=== PATIENT | male | born 1960 | race Caucasian/White ===

== ENCOUNTER 2022-08-17 11:49 | Emergency (ER) | payer OTHER, SELFPAY ==
[2022-08-17] VITALS (9 sets, daily range): BP systolic 114–148; BP diastolic 64–80; PULSE 70–86; RESP 12–20; TEMP 36.9; O2SAT 95–100; BMI 26.2
--- NOTE | 2022-08-17 12:32 | ED.GENADULT ---
HPI - General Adult General Chief complaint: Syncope/Fainted Stated complaint: snycope Time Seen by Provider: 08/17/22 11:53 Source: patient and family Mode of arrival: ambulatory Limitations: no limitations History of Present Illness HPI narrative: Patient is a 62-year-old male coming in today concerned about a syncopal episode that occurred just prior to presenting to the ER. Patient states that he was at home sitting on a stool, getting his hair cut by his when all of a sudden he felt very hot and sweaty. His then tells me that he slumped forward and she was able to hold onto him and wrap her arms around him so he would fall off the stool. He became very stiff for about 1 minute, lost control of his bladder and then came to. He felt slightly confused, did not know what had just happened. Per his his color was very off and she laid him on the couch. He laid on the couch for approximately 10 minutes while he was lying on the couch, he was acting normally. Right now he says that he feels fatigued. He denies headache or blurry vision. He does state that this last week he has had flu-like symptoms with fatigue, weakness, achiness. He also endorses pressure across his face, significant congestion, feeling that he is ?under water? and feeling like his ears are plugged. He had a fever Thursday and Thursday of this week which was 4-5 days ago. He was seen in the clinic 2 days ago on Thursday where he was diagnosed with a viral illness. He states that he has not been eating very much at all this week secondary to poor appetite, but has tried to drink plenty of fluids. Patient does have a past medical history significant for a mL for which he is status post a stem cell transplant done in 2019. He denies any new medications. He has been off of immunosuppressants for a while now. Related Data Home Medications Medication Instructions Recorded Confirmed ursodiol 500 mg tablet 500 mg PO BID 08/17/22 08/17/22 valacyclovir 1 gram tablet 2,000 mg PO BID 08/17/22 08/17/22 Previous Rx's Medication Instructions Recorded amoxicillin 875 mg-potassium 1 tab PO BID #10 tabs 08/17/22 clavulanate 125 mg tablet Allergies Allergy/AdvReac Type Severity Reaction Status Date / Time No Known Drug Allergies Allergy Verified 08/17/22 12:04 Review of Systems Status of ROS: Reports: 10 or more systems reviewed and unremarkable except as noted in History and below [facility] Social History Smoking Status: Never smoker Do you use any of these nicotine containing products: None Second hand tobacco smoke exposure: No How often do you have a drink containing alcohol: 2-4 times a month How many standard drinks containing alcohol do you have on a typical day: 1 or 2 How often do you have six or more drinks on one occasion: Never AUDIT-C Alcohol total score: 2 Non-prescribed substance use: denies use Exam Narrative: Exam Narrative: Well-nourished well-developed patient in no acute distress. Alert and oriented. Answers questions appropriately. Mood and affect are appropriate. Thoughts are goal oriented and rational. No tangential or magical thinking noted. Patient speaks in full sentences without needing to catch their breath. Speech is not slurred or pressured. HEENT: Normocephalic atraumatic. Pupils are equally round reactive to light. Extraocular muscles are intact. Conjunctivae are moist without any icterus noted. Moist mucous membranes. Posterior pharynx is normal. Patient does have small ulcerations on the hard palate. Neck is soft without any lymphadenopathy or thyromegaly. No masses are appreciated. TMs are dull bilaterally. Cardiovascular: Heart is regular rate and rhythm S1 and S2 are present without any murmurs. Lungs: Clear to auscultation bilaterally no wheezes rhonchi or rales are appreciated. Patient takes deep breaths without any discomfort. Abdomen: Soft and nontender nondistended with normal bowel sounds. No guarding or rebound. No masses or organomegaly appreciated. Extremities: Bilateral lower extremities are without edema. Skin: Well perfused without any obvious rashes. Strength is 5/5 of the upper and lower extremities. Cranial nerves 3-12 are normal. There is no nystagmus either horizontally or vertically. Gait is normal. Const: Vital Signs, click to edit/add: Vital Signs - 24 hr 08/17/22 11:59 08/17/22 12:23 08/17/22 13:23 Temperature 98.5 F Pulse Rate [Pulse Oximeter] 70 Pulse Rate [orthos tatic lying] 75 Pulse Rate [orthos tatic sitting] 84 Pulse Rate [orthos tatic standing] 82 Respiratory Rate 20 Blood Pressure [Ri ght Upper Arm] 120/80 Blood Pressure [or thostatic lying] 123/64 Blood Pressure [or thostatic sitting] 135/76 Blood Pressure [or thostatic standing ] 127/75 Pulse Oximetry 98 100 Oxygen Delivery Me thod Room Air 08/17/22 12:30 08/17/22 13:00 08/17/22 13:30 Temperature Pulse Rate [Pulse Oximeter] 73 73 86 Pulse Rate [orthos tatic lying] Pulse Rate [orthos tatic sitting] Pulse Rate [orthos tatic standing] Respiratory Rate 20 20 12 Blood Pressure [Ri ght Upper Arm] 116/64 123/64 123/68 Blood Pressure [or thostatic lying] Blood Pressure [or thostatic sitting] Blood Pressure [or thostatic standing ] Pulse Oximetry 99 97 95 Oxygen Delivery Me thod 08/17/22 14:00 08/17/22 14:30 08/17/22 15:00 Temperature Pulse Rate [Pulse Oximeter] 80 76 71 Pulse Rate [orthos tatic lying] Pulse Rate [orthos tatic sitting] Pulse Rate [orthos tatic standing] Respiratory Rate 14 15 15 Blood Pressure [Ri ght Upper Arm] 114/69 148/77 H 138/79 Blood Pressure [or thostatic lying] Blood Pressure [or thostatic sitting] Blood Pressure [or thostatic standing ] Pulse Oximetry 99 97 99 Oxygen Delivery Me thod Course Course Hospital Course: IV established and labs drawn. EKG was done, read by me, shows normal sinus rhythm with a pulse of 75. Patient received a L of normal saline. Labs showed elevated white count and elevated CRP. Mildly elevated direct bilirubin. I did consult with Dr. Joyce, bone marrow transplant specialist at [facility] who has access to the patient's chart. Per Dr. Joyce patient's white blood cell count is generally in the normal range. He recommended checking for myeloid cells unfortunately this is not something that we can do here. Of note, he does have another appointment with the bone marrow team already scheduled for tomorrow. I also consulted with Dr. Dwyer, neurologist at [facility], who felt that the patient's symptoms were consistent with a syncopal episode, although a seizure episode could not be 100% ruled out. Given his symptoms we also did do a head CT which did although did not show any intracranial abnormalities did show pansinusitis. This is consistent with the patient's symptoms of congestion, feeling his ears are plugged, and facial discomfort. Given the patient's elevated white cell count and significantly elevated CRP, recent fever and symptoms of sinusitis, I do think that treating him with an antibiotic will be important at this time. We did do a chest x-ray, read by me, which did not show any evidence of infection. Patient is instructed to keep his appointment tomorrow for a repeat CBC. We also discussed following up with primary care provider mid next week for repeat examination. Patient and were agreeable with everything we discussed had no other questions. Vital Signs Vital signs: Initial Vital Signs Temperature 98.5 F 08/17/22 11:59 Temperature Source Temporal Artery Scan 08/17/22 11:59 Pulse Rate 70 08/17/22 11:59 Pulse Rhythm 08/17/22 11:59 Respiratory Rate 20 08/17/22 11:59 Blood Pressure 120/80 08/17/22 11:59 Blood Pressure Mean 93 08/17/22 11:59 Blood Pressure Position Semi-Fowlers 08/17/22 11:59 Pulse Oximetry 98 08/17/22 11:59 Oxygen Delivery Method 08/17/22 11:59 Vital Signs Temperature 98.5 F 08/17/22 11:59 Pulse Rate 70 08/17/22 11:59 Respiratory Rate 20 08/17/22 11:59 Blood Pressure 120/80 08/17/22 11:59 Pulse Oximetry 98 08/17/22 11:59 Oxygen Delivery Method 08/17/22 11:59 Temperature 98.5 F 08/17/22 11:59 Pulse Rate 71 08/17/22 15:00 Respiratory Rate 15 08/17/22 15:00 Blood Pressure 138/79 08/17/22 15:00 Pulse Oximetry 99 08/17/22 15:00 Oxygen Delivery Method 08/17/22 11:59 Medical Decision Making MDM Narrative Medical decision making narrative: Syncopal episode. Evidence of sinusitis. Plan per above. Medical Records Medical records reviewed: Yes I reviewed the patient's medical records Lab Data Lab results reviewed: Yes I reviewed the patient's lab results Labs: Lab Results 08/17/22 08/17/22 08/17/22 Range/Units 12:24 12:45 12:45 WBC 22.46 H (4.50-11.00) K/uL RBC 4.84 (4.30-5.90) m/uL Hgb 15.1 (13.5-17.5) gm/dL Hct 44.6 (37.0-53.0) % MCV 92 (80-100) fL MCH 31 (26-34) pg MCHC 34 (32-36) gm/dL RDW Coeff of Nigel 14.3 (11.5-15.5) % Plt Count 223 (140-440) K/uL Neut % (Auto) 71.9 (42.0-72.0) % Lymph % (Auto) 14.4 L (20-44) % Stearns % (Auto) 11.0 (0.0-11.0) % Eos % (Auto) 0.3 (0.0-7.0) % Baso % (Auto) 0.2 (0.0-3.0) % Neut # (Auto) 16.10 H (1.7-7.0) K/uL Lymph # (Auto) 3.20 H (0.90-2.90) K/uL Stearns # (Auto) 2.50 H (0.00-0.90) K/UL Eos # (Auto) 0.10 (0.00-0.50) K/uL Baso # (Auto) 0.00 (0.00-0.30) K/uL ESR (2-15) mm/hr Sodium 133 L (135-149) mmol/L Potassium 4.0 (3.6-5.1) mmol/L Chloride 100 (96-114) mmol/L Carbon Dioxide 26 (20-32) mmol/L BUN 15 (7-30) mg/dL Creatinine 0.9 (0.5-1.5) mg/dL Estimated Creat Clear 82.62 Estimated GFR 97 ml/min Glucose 106 (60-115) mg/dL Lactate (0.5-1.9) mmol/L Calcium 8.3 L (8.4-10.6) mg/dL Total Bilirubin 1.9 H (0.1-1.5) mg/dL Direct Bilirubin 0.7 H (0.0-0.5) mg/dL AST 23 (12-35) U/L ALT 29 (4-50) U/L Alkaline Phosphatase 124 (40-150) U/L Troponin I (0.01-0.04) ng/mL C-Reactive Protein (0.5-1.0) mg/dL Total Protein 7.2 (6.0-8.3) g/dL Albumin 3.3 (3.3-5.0) g/dL SARS-CoV-2 (PCR) Negative SARS-CoV-2 (Negative) Influenza Type A (PCR) Negative PCR FLU A (Negative) Influenza Type B (PCR) Negative PCR FLU B (Negative) 08/17/22 08/17/22 08/17/22 Range/Units 12:45 12:45 12:45 WBC (4.50-11.00) K/uL RBC (4.30-5.90) m/uL Hgb (13.5-17.5) gm/dL Hct (37.0-53.0) % MCV (80-100) fL MCH (26-34) pg MCHC (32-36) gm/dL RDW Coeff of Nigel (11.5-15.5) % Plt Count (140-440) K/uL Neut % (Auto) (42.0-72.0) % Lymph % (Auto) (20-44) % Stearns % (Auto) (0.0-11.0) % Eos % (Auto) (0.0-7.0) % Baso % (Auto) (0.0-3.0) % Neut # (Auto) (1.7-7.0) K/uL Lymph # (Auto) (0.90-2.90) K/uL Stearns # (Auto) (0.00-0.90) K/UL Eos # (Auto) (0.00-0.50) K/uL Baso # (Auto) (0.00-0.30) K/uL ESR 29 H (2-15) mm/hr Sodium (135-149) mmol/L Potassium (3.6-5.1) mmol/L Chloride (96-114) mmol/L Carbon Dioxide (20-32) mmol/L BUN (7-30) mg/dL Creatinine (0.5-1.5) mg/dL Estimated Creat Clear Estimated GFR ml/min Glucose (60-115) mg/dL Lactate 1.1 (0.5-1.9) mmol/L Calcium (8.4-10.6) mg/dL Total Bilirubin (0.1-1.5) mg/dL Direct Bilirubin (0.0-0.5) mg/dL AST (12-35) U/L ALT (4-50) U/L Alkaline Phosphatase (40-150) U/L Troponin I < 0.01 L (0.01-0.04) ng/mL C-Reactive Protein 18.8 H (0.5-1.0) mg/dL Total Protein (6.0-8.3) g/dL Albumin (3.3-5.0) g/dL SARS-CoV-2 (PCR) (Negative) Influenza Type A (PCR) (Negative) Influenza Type B (PCR) (Negative) Imaging Data CT scan - head: Attestation: I have reviewed the pertinent imaging results. Radiologist's impression: TECHNIQUE: CT Head without i.v. contrast. Coronal and sagittal reformats were obtained. COMPARISON: None FINDINGS: CSF space: The ventricles are normal for age. Brain: No evidence of mass, acute infarction or hemorrhage is seen. No mass-effect or midline shift is seen. The brain parenchyma is otherwise normal in appearance with preservation of the bro-white matter junction. Calvarium: Opacification of the ethmoid air cells and maxillary sinuses are present. Mild mucosal thickening seen in the sphenoid sinuses with small air-fluid level in the left sphenoid sinus. There is a moderate right and large left mastoid effusion present with bilateral middle ear effusions seen. The visualized orbits are grossly unremarkable. The calvarium is unremarkable in appearance with no fractures identified. IMPRESSIONS: 1. No evidence of acute infarction, intracranial hemorrhage, or mass-effect seen. 2. Opacification of the ethmoid air cells and maxillary sinuses are present. Mild mucosal thickening seen in the sphenoid sinuses with small air-fluid level in the left sphenoid sinus. Findings are consistent with pansinusitis. 3. There is a moderate right and large left mastoid effusion present with bilateral middle ear effusion seen. Chest x-ray: Attestation: I have reviewed the pertinent imaging results. Radiologist's impression: TECHNIQUE: Two view chest. FINDINGS: The lungs are clear. The heart, mediastinum and pulmonary vessels are of normal size. There is no evidence of pleural disease. IMPRESSION: Negative chest. ECG Data Attestation: I personally reviewed and interpreted this ECG as follows: Discharge Plan Discharge Clinical Impression: Pansinusitis, Syncope Patient Disposition: Home, Self-Care Condition: Stable Additional Instructions: Take all antibiotics as prescribed. Okay to use a Neti pot to help with congestion-as per want the pharmacy and ask pharmacist to show you how to use 1. Recommend you keep your appointment tomorrow for repeat blood work. Also recommend you follow-up with your primary care provider mid next week for repeat examination and repeat blood work to make sure things are improving. Prescriptions: New amoxicillin-pot clavulanate 875-125 mg tablet 1 tab PO BID Qty: 10 0RF No Action valacyclovir 1 gram tablet 2,000 mg PO BID ursodiol 500 mg tablet 500 mg PO BID Follow Up/Referrals: Antonio Bueno MD [Primary Care Provider] - Stand Alone Forms: [facility] Info Instructions
--- NOTE | 2022-08-17 12:37 | CRLHL7_ITS ---
For Patients: As a result of the Century Cures Act, medical imaging exams and procedure reports are released immediately into your electronic medical record. You may view this report before your referring provider. If you have questions, please contact your health care provider. INDICATION: Seizure like symptoms TECHNIQUE: CT Head without i.v. contrast. Coronal and sagittal reformats were obtained. COMPARISON: None FINDINGS: CSF space: The ventricles are normal for age. Brain: No evidence of mass, acute infarction or hemorrhage is seen. No mass-effect or midline shift is seen. The brain parenchyma is otherwise normal in appearance with preservation of the bro-white matter junction. Calvarium: Opacification of the ethmoid air cells and maxillary sinuses are present. Mild mucosal thickening seen in the sphenoid sinuses with small air-fluid level in the left sphenoid sinus. There is a moderate right and large left mastoid effusion present with bilateral middle ear effusions seen. The visualized orbits are grossly unremarkable. The calvarium is unremarkable in appearance with no fractures identified. IMPRESSIONS: 1. No evidence of acute infarction, intracranial hemorrhage, or mass-effect seen. 2. Opacification of the ethmoid air cells and maxillary sinuses are present. Mild mucosal thickening seen in the sphenoid sinuses with small air-fluid level in the left sphenoid sinus. Findings are consistent with pansinusitis. 3. There is a moderate right and large left mastoid effusion present with bilateral middle ear effusion seen. Dictated by Tino Garcia MD @ 08/17/2022 1:39:17 PM Please note that all CT scans at this facility use dose modulation, iterative reconstruction, and/or weight-based dosing when appropriate to reduce radiation dose to as low as reasonably achievable. Dictated by: Tino Garcia MD @ 08/17/2022 13:39:52 (Electronically Signed)
[2022-08-17] MEDS: 0.9 % SODIUM CHLORIDE 1000 ml 1,000 ML IV (12:54)
[2022-08-17 12:56] LABS: Lactate* 1.1 mmol/L (0.5-1.9)
[2022-08-17 13:05] LABS: Basophils Percent Auto 0.2 % (0.0-3.0); Eosinophils Percent Auto 0.3 % (0.0-7.0); Hematocrit 44.6 % (37.0-53.0); Hemoglobin* 15.1 gm/dL (13.5-17.5); Immature Granulocytes Pct Auto 2.2 %; Lymphocytes Percent Auto 14.4 % (20-44); Mean Corpuscular HGB Conc 34 gm/dL (32-36); Mean Corpuscular Hemoglobin 31 pg (26-34); Mean Corpuscular Volume 92 fL (80-100); Neutrophils Percent Auto 71.9 % (42.0-72.0); Platelet Count* 223 K/uL (140-440); RDW Coefficient of Variation % 14.3 % (11.5-15.5); Red Blood Count 4.84 m/uL (4.30-5.90); Slide Review Reflex No; White Blood Count* 22.46 K/uL (4.50-11.00)
[2022-08-17 13:11] LABS: Albumin* 3.3 g/dL (3.3-5.0); Chloride* 100 mmol/L (96-114); Sodium* 133 mmol/L (135-149)
[2022-08-17 13:14] LABS: Alanine Aminotransferase* 29 U/L (4-50); Alkaline Phosphatase* 124 U/L (40-150); Aspartate Amino Transferase* 23 U/L (12-35); Bilirubin Direct* 0.7 mg/dL (0.0-0.5); Bilirubin Total* 1.9 mg/dL (0.1-1.5); Blood Urea Nitrogen* 15 mg/dL (7-30); Carbon Dioxide* 26 mmol/L (20-32); Creatinine* 0.9 mg/dL (0.5-1.5); Est. Creatinine Clearance* 82.62; Estimated Glomerular Filt Rate 97 ml/min; Glucose* 106 mg/dL (60-115); Total Protein* 7.2 g/dL (6.0-8.3)
[2022-08-17 13:15] LABS: Calcium* 8.3 mg/dL (8.4-10.6)
[2022-08-17 13:29] LABS: Troponin I* < 0.01 ng/mL (0.01-0.04)
[2022-08-17 13:36] LABS: C Reactive Protein* 18.8 mg/dL (0.5-1.0)
[2022-08-17 13:47] LABS: Erythrocyte SedimentationRate* 29 mm/hr (2-15)
[2022-08-17 13:52] LABS: PCR FLU A Negative PCR FLU A (Negative); PCR FLU B Negative PCR FLU B (Negative)
[2022-08-17 14:11] LABS: SARS PCR* Negative SARS-CoV-2 (Negative)
--- NOTE | 2022-08-17 14:13 | CRLHL7_ITS ---
For Patients: As a result of the Century Cures Act, medical imaging exams and procedure reports are released immediately into your electronic medical record. You may view this report before your referring provider. If you have questions, please contact your health care provider. INDICATION: Short of breath TECHNIQUE: Two view chest. FINDINGS: The lungs are clear. The heart, mediastinum and pulmonary vessels are of normal size. There is no evidence of pleural disease. IMPRESSION: Negative chest. Dictated by Scott Ching MD @ 08/17/2022 3:07:31 PM (Electronically Signed)
--- NOTE | 2022-08-17 14:18 | ED.NURSE ---
Pt to imaging
== END 2022-08-17 15:12 | disposition home or self-care (01) ==
PROVIDERS: Emergency Provider Family Medicine; PCP Family Medicine
DX: R55 Syncope and collapse (principal); J32.4 Chronic pansinusitis
CPT/HCPCS: 36415; 70450; 71046; 80048; 80076; 83605; 84484; 85025; 85651; 86140; 87631; 93005; 94761; 99285; J7030

== ENCOUNTER 2023-04-24 03:37 | Emergency (ER) | payer OTHER, SELFPAY ==
[2023-04-24] VITALS (42 sets, daily range): BP systolic 86–114; BP diastolic 43–71; PULSE 93–105; RESP 20; TEMP 38.2; O2SAT 91–97; BMI 26.5
--- NOTE | 2023-04-24 03:46 | CRLHL7_ITS ---
For Patients: As a result of the Century Cures Act, medical imaging exams and procedure reports are released immediately into your electronic medical record. You may view this report before your referring provider. If you have questions, please contact your health care provider. Indication: Fever and cough Comparison: Two-view chest August 17, 2022 Technique: Single AP view chest Findings: There is hyperinflation and chronic interstitial change. There is minimal basilar airspace opacity within the right lung base which may represent developing infiltrate. There is no pneumothorax or pleural effusion. The cardiomediastinal silhouette is within normal limits. The bony thorax is grossly intact. Impression: Minimal basilar airspace opacity in the right lung base which may represent developing infiltrate. Dictated by Deonte Em MD @ 04/24/2023 5:05:45 AM (Electronically Signed)
--- NOTE | 2023-04-24 04:03 | ED.GENADULT ---
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 He has been feeling poorly for the past couple of days, apparently was at [facility] for routine blood draw on Thursday [place] [id number] at that time. He says he normally runs 8 or 9000. He says he was told to make an appointment with his primary doctor to get COVID and RSV be ruled out. He has had a cough, congestion, headache, nausea. He vomited once. He has not had diarrhea. This morning he got up and had a syncopal episode, landed on his butt and has some soreness there but no significant pain, denies significant injury. No head or neck injury. Related Data Home Medications Medication Instructions Recorded Confirmed ursodiol 500 mg tablet 500 mg PO BID 08/17/22 04/24/23 valacyclovir 1 gram tablet 2,000 mg PO BID 08/17/22 04/24/23 Allergies Allergy/AdvReac Type Severity Reaction Status Date / Time No Known Drug Allergies Allergy Verified 04/24/23 05:44 Review of Systems Status of ROS: Reports: 10 or more systems reviewed and unremarkable except as noted in History and below PFSH PFS Social History Smoking Status: Never smoker Do you use any of these nicotine containing products: None Second hand tobacco smoke exposure: No How often do you have a drink containing alcohol: 2-4 times a month How many standard drinks containing alcohol do you have on a typical day: 1 or 2 How often do you have six or more drinks on one occasion: Never AUDIT-C Alcohol total score: 2 Non-prescribed substance use: denies use Exam Narrative: Exam Narrative: Vital signs as noted above. In general, an alert, nontoxic male, looks fatigued. Head: Normocephalic, atraumatic. Eyes: Pupils are equal reactive. Extraocular movements are full. Conjunctivae are normal. ENT: Mucous membranes are moist. Neck: Supple without lymphadenopathy. Heart: Mildly tachycardic, no murmur. Lungs: Some rhonchi bilaterally, no wheezes no increased work of breathing. Abdomen: Soft and nontender. No organomegaly. Extremities: Well perfused. No edema. No calf tenderness. Pulses intact. Neurologic: Patient is alert and oriented to person and place. Speech is fluent. Face is symmetric. Moves all extremities equally. Affect: Normal. Skin: Warm and dry. Well perfused. Const: Vital Signs, click to edit/add: Vital Signs - 24 hr 04/24/23 03:42 04/24/23 03:58 04/24/23 04:00 Temperature 100.8 F H 100.8 F H Pulse Rate Pulse Rate [Pulse Oximeter] 103 H Pulse Rate [Right Pulse Oximeter] 105 H Respiratory Rate 20 20 Blood Pressure Blood Pressure [Le ft Upper Arm] 94/55 L Blood Pressure [Ri ght Arm] 95/60 Pulse Oximetry 96 97 95 Oxygen Delivery Me thod Room Air Room Air 04/24/23 04:11 04/24/23 04:26 04/24/23 04:31 Temperature Pulse Rate 100 102 H 101 H Pulse Rate [Pulse Oximeter] Pulse Rate [Right Pulse Oximeter] Respiratory Rate 20 Blood Pressure 91/55 L 87/51 L 87/51 L Blood Pressure [Le ft Upper Arm] Blood Pressure [Ri ght Arm] Pulse Oximetry 92 95 93 Oxygen Delivery Me thod 04/24/23 04:41 04/24/23 04:51 04/24/23 05:10 Temperature Pulse Rate 101 H 101 H 99 Pulse Rate [Pulse Oximeter] Pulse Rate [Right Pulse Oximeter] Respiratory Rate 20 20 20 Blood Pressure 88/51 L 90/51 L 98/53 L Blood Pressure [Le ft Upper Arm] Blood Pressure [Ri ght Arm] Pulse Oximetry 93 91 96 Oxygen Delivery Me thod 04/24/23 05:15 04/24/23 05:21 04/24/23 05:41 Temperature Pulse Rate 99 101 H 104 H Pulse Rate [Pulse Oximeter] Pulse Rate [Right Pulse Oximeter] Respiratory Rate 20 20 20 Blood Pressure 87/48 L 91/47 L 90/52 L Blood Pressure [Le ft Upper Arm] Blood Pressure [Ri ght Arm] Pulse Oximetry 96 95 93 Oxygen Delivery Me thod 04/24/23 05:51 04/24/23 06:01 04/24/23 06:11 Temperature Pulse Rate 101 H 100 104 H Pulse Rate [Pulse Oximeter] Pulse Rate [Right Pulse Oximeter] Respiratory Rate 20 20 20 Blood Pressure 94/48 L 88/49 L 91/43 L Blood Pressure [Le ft Upper Arm] Blood Pressure [Ri ght Arm] Pulse Oximetry 94 93 95 Oxygen Delivery Me thod 04/24/23 06:23 04/24/23 06:31 04/24/23 06:41 Temperature Pulse Rate 102 H 104 H 98 Pulse Rate [Pulse Oximeter] Pulse Rate [Right Pulse Oximeter] Respiratory Rate 20 20 20 Blood Pressure 86/44 L 99/46 L 87/45 L Blood Pressure [Le ft Upper Arm] Blood Pressure [Ri ght Arm] Pulse Oximetry 94 94 92 Oxygen Delivery Me thod 04/24/23 06:51 Temperature Pulse Rate 98 Pulse Rate [Pulse Oximeter] Pulse Rate [Right Pulse Oximeter] Respiratory Rate 20 Blood Pressure 90/46 L Blood Pressure [Le ft Upper Arm] Blood Pressure [Ri ght Arm] Pulse Oximetry 92 Oxygen Delivery Me thod Documenting provider has reviewed patient's vital signs: yes Course Course ED Course: Following initial evaluation, I ordered labs including blood cultures, lactate, COVID influenza lung others. I ordered a chest x-ray as well. He was getting up to provide a urine sample and had another brief syncopal episode. Does not seem to have significantly low blood pressures, repeat pressure was 113 systolic, and then after that was back down to 94/55. Map of 61. Will give normal saline, low threshold for starting broad-spectrum antibiotics Patient continued to have borderline blood pressures, white blood cell count today was 27,000, lactate was 3.6. I did order Zosyn and vancomycin as well as a total of 3 L of normal saline. Thirty per kilo for him would be about 2600 mL. Blood cultures and urine culture were obtained prior to antibiotics. Other labs showed a normal hemoglobin of 14.9, left shift with 79% neutrophils. Metabolic panel notable for a sodium of 131, otherwise unremarkable. LFTs notable for a total bilirubin of 4.6, direct of 1.8. AST normal, ALT 55, alk-phos 113. CRP was elevated at 8. Procalcitonin was 8.5. Urinalysis was negative in terms of signs of infection. COVID, influenza and RSV were also negative. Chest x-ray by my review did show a hint of an infiltrate on the right, radiology read this as follows:Findings: There is hyperinflation and chronic interstitial change. There is minimal basilar airspace opacity within the right lung base which may represent developing infiltrate. There is no pneumothorax or pleural effusion. The cardiomediastinal silhouette is within normal limits. The bony thorax is grossly intact. Impression: Minimal basilar airspace opacity in the right lung base which may represent developing infiltrate. In an effort to definitively identify a source for sepsis and given abnormal LFTs I elected to do CT scans of the chest abdomen and pelvis. By my review this showed a right-sided infiltrate. Gallbladder looks somewhat distended but I do not see any stones, wall thickening or pericholecystic fluid on CT. He does not have any abdominal tenderness, and I think pneumonia is an adequate explanation for his sepsis. I put a call in to the transplant team at [place], I spoke with the nurse practitioner, Moriah, there. She felt transfer would be appropriate and that he would likely require ICU care. His blood pressures stayed right around the upper 80s to low 90s even after 3 L of fluid, pulse remains just above 100. Map has stayed around 60. Will go ahead and start some Levophed for further blood pressure support given lack of response to fluids. He is feeling somewhat better after fluid resuscitation. Continues to deny shortness of breath. O2 sats when he is resting are about 91-92%, 94-95% when he is awake and talking. Plan will be for transfer to [place] by helicopter. Critical care time 60 minutes Vital Signs Vital signs: Initial Vital Signs Temperature 100.8 F H 04/24/23 03:42 Temperature Source Temporal Artery Scan 04/24/23 03:42 Pulse Rate 103 H 04/24/23 03:42 Respiratory Rate 20 04/24/23 03:42 Blood Pressure 94/55 L 04/24/23 03:42 Blood Pressure Mean 68 L 04/24/23 03:42 Blood Pressure Position Sitting 04/24/23 03:42 Pulse Oximetry 96 04/24/23 03:42 Oxygen Delivery Method Room Air 04/24/23 03:42 Vital Signs Temperature 100.8 F H 04/24/23 03:42 Pulse Rate 103 H 04/24/23 03:42 Respiratory Rate 20 11/24/23 03:42 Blood Pressure 94/55 L 04/24/23 03:42 Pulse Oximetry 96 04/24/23 03:42 Oxygen Delivery Method Room Air 04/24/23 03:42 Temperature 100.8 F H 04/24/23 04:00 Pulse Rate 98 04/24/23 06:51 Respiratory Rate 20 04/24/23 06:51 Blood Pressure 90/46 L 04/24/23 06:51 Pulse Oximetry 92 04/24/23 06:51 Oxygen Delivery Method Room Air 04/24/23 04:00 Medications Administered Medications: Generic Name Dose Route Start Last Admin Trade Name Freq PRN Reason Stop Dose Admin Vancomycin HCl 1,750 mg/ 517.5 mls @ 258.75 mls/hr 04/24/23 05:05 04/24/23 05:41 Sodium Chloride IVPB 04/24/23 07:04 258.75 mls/hr ONCE ONE Administration Protocol Discontinued Medications Generic Name Dose Route Start Last Admin Trade Name Freq PRN Reason Stop Dose Admin Sodium Chloride 1,000 mls @ 1,000 mls/hr 04/24/23 04:15 04/24/23 05:16 0.9 % Sodium Chloride 1000 Ml IV 04/24/23 05:14 Infused .Q1H JAY Infusion Sodium Chloride 1,000 mls @ 1,000 mls/hr 04/24/23 04:15 04/24/23 05:17 0.9 % Sodium Chloride 1000 Ml IV 04/24/23 05:14 Infused .Q1H JAY Infusion Piperacillin Sod/Tazobactam 100 mls @ 100 mls/hr 04/24/23 04:10 04/24/23 05:41 Sod 3.375 gm/ Sodium Chloride IVPB 04/24/23 04:11 Infused ONCE ONE Infusion Sodium Chloride 1,000 mls @ 1,000 mls/hr 04/24/23 05:15 04/24/23 06:25 0.9 % Sodium Chloride 1000 Ml IV 04/24/23 06:14 Infused .Q1H JAY Infusion Medical Decision Making Lab Data Labs: Lab Results 04/24/23 04/24/23 04/24/23 Range/Units 03:42 04:00 05:10 WBC 26.90 H* (4.50-11.00) K/uL RBC 4.70 (4.30-5.90) m/uL Hgb 14.9 (13.5-17.5) gm/dL Hct 44.7 (37.0-53.0) % MCV 95 (80-100) fL MCH 32 (26-34) pg MCHC 33 (32-36) gm/dL RDW Coeff of Nigel 14.1 (11.5-15.5) % Plt Count 172 (140-440) K/uL Neut % (Auto) 78.9 H (42.0-72.0) % Lymph % (Auto) 12.5 L (20-44) % [place] % (Auto) 7.4 (0.0-11.0) % Eos % (Auto) 0.1 (0.0-7.0) % Baso % (Auto) 0.1 (0.0-3.0) % Neut # (Auto) 21.20 H (1.7-7.0) K/uL Lymph # (Auto) 3.40 H (0.90-2.90) K/uL [place] # (Auto) 2.00 H (0.00-0.90) K/UL Eos # (Auto) 0.00 (0.00-0.50) K/uL Baso # (Auto) 0.00 (0.00-0.30) K/uL Abs Immat Gran (auto) 0.30 (0.00-0.30) K/uL Imm/Tot Granulo (auto) 1.0 % Sodium 131 L (135-149) mmol/L Potassium 3.8 (3.6-5.1) mmol/L Chloride 98 (96-114) mmol/L Carbon Dioxide 22 (20-32) mmol/L Anion Gap 11 (7-15) mEq/L BUN 21 (7-30) mg/dL Creatinine 1.3 (0.5-1.5) mg/dL Estimated Creat Clear 62.75 Estimated GFR 62 ml/min Glucose 143 H (60-115) mg/dL Lactate 3.6 H (0.5-1.9) mmol/L Calcium 8.1 L (8.4-10.6) mg/dL Total Bilirubin 4.6 H (0.1-1.5) mg/dL Direct Bilirubin 1.8 H (0.0-0.5) mg/dL AST 33 (12-35) U/L ALT 55 H (4-50) U/L Alkaline Phosphatase 113 (40-150) U/L C-Reactive Protein 7.9 H (0.5-1.0) mg/dL Total Protein 7.6 (6.0-8.3) g/dL Albumin 3.8 (3.3-5.0) g/dL Procalcitonin 8.52 H (<0.50) ng/mL Urine Color Yellow (Yellow) Urine Appearance Cloudy A (Clear) Urine pH 5.5 (5.0-8.5) Ur Specific [place] 1.010 (1.000-1.030) Urine Protein 1+ A (Negative) Urine Glucose (UA) Negative (Negative) Urine Ketones Negative (Negative) Urine Blood Trace-lysed A (Negative) Urine Nitrite Positive A (Negative) Urine Bilirubin 1+ A (Negative) Urine Urobilinogen 1.0 (0.2-1.0) Ur Leukocyte Esterase Negative (Negative) Urine RBC 0-2 (0-2) Urine WBC 2-5 (0-5) Ur Squamous Epith Cells Few (None-Few) Urine Bacteria Moderate A (None) SARS-CoV-2 (PCR) Negative SARS-CoV-2 (Negative) Influenza Type A (PCR) Negative PCR FLU A (Negative) Influenza Type B (PCR) Negative PCR FLU B (Negative) RSV (PCR) Negative PCR RSV (Negative) 04/24/23 Range/Units 06:00 WBC (4.50-11.00) K/uL RBC (4.30-5.90) m/uL Hgb (13.5-17.5) gm/dL Hct (37.0-53.0) % MCV (80-100) fL MCH (26-34) pg MCHC (32-36) gm/dL RDW Coeff of Nigel (11.5-15.5) % Plt Count (140-440) K/uL Neut % (Auto) (42.0-72.0) % Lymph % (Auto) (20-44) % [place] % (Auto) (0.0-11.0) % Eos % (Auto) (0.0-7.0) % Baso % (Auto) (0.0-3.0) % Neut # (Auto) (1.7-7.0) K/uL Lymph # (Auto) (0.90-2.90) K/uL [place] # (Auto) (0.00-0.90) K/UL Eos # (Auto) (0.00-0.50) K/uL Baso # (Auto) (0.00-0.30) K/uL Abs Immat Gran (auto) (0.00-0.30) K/uL Imm/Tot Granulo (auto) % Sodium (135-149) mmol/L Potassium (3.6-5.1) mmol/L Chloride (96-114) mmol/L Carbon Dioxide (20-32) mmol/L Anion Gap (7-15) mEq/L BUN (7-30) mg/dL Creatinine (0.5-1.5) mg/dL Estimated Creat Clear Estimated GFR ml/min Glucose (60-115) mg/dL Lactate 3.0 H (0.5-1.9) mmol/L Calcium (8.4-10.6) mg/dL Total Bilirubin (0.1-1.5) mg/dL Direct Bilirubin (0.0-0.5) mg/dL AST (12-35) U/L ALT (4-50) U/L Alkaline Phosphatase (40-150) U/L C-Reactive Protein (0.5-1.0) mg/dL Total Protein (6.0-8.3) g/dL Albumin (3.3-5.0) g/dL Procalcitonin (<0.50) ng/mL Urine Color (Yellow) Urine Appearance (Clear) Urine pH (5.0-8.5) Ur Specific [place] (1.000-1.030) Urine Protein (Negative) Urine Glucose (UA) (Negative) Urine Ketones (Negative) Urine Blood (Negative) Urine Nitrite (Negative) Urine Bilirubin (Negative) Urine Urobilinogen (0.2-1.0) Ur Leukocyte Esterase (Negative) Urine RBC (0-2) Urine WBC (0-5) Ur Squamous Epith Cells (None-Few) Urine Bacteria (None) SARS-CoV-2 (PCR) (Negative) Influenza Type A (PCR) (Negative) Influenza Type B (PCR) (Negative) RSV (PCR) (Negative) Discharge Plan Discharge Prescriptions: No Action valacyclovir 1 gram tablet 2,000 mg PO BID ursodiol 500 mg tablet 500 mg PO BID Follow Up/Referrals: Antonio Bueno MD [Primary Care Provider] -
[2023-04-24 04:05] LABS: Basophils Percent Auto 0.1 % (0.0-3.0); Eosinophils Percent Auto 0.1 % (0.0-7.0); Hematocrit 44.7 % (37.0-53.0); Hemoglobin* 14.9 gm/dL (13.5-17.5); Lymphocytes Percent Auto 12.5 % (20-44); Mean Corpuscular HGB Conc 33 gm/dL (32-36); Mean Corpuscular Hemoglobin 32 pg (26-34); Mean Corpuscular Volume 95 fL (80-100); Monocytes Percent Auto 7.4 % (0.0-11.0); Neutrophils Percent Auto 78.9 % (42.0-72.0); Platelet Count* 172 K/uL (140-440); RDW Coefficient of Variation % 14.1 % (11.5-15.5)
[2023-04-24 04:09] LABS: Slide Review Reflex No
[2023-04-24 04:10] LABS: Lactate Sepsis w/Reflex* 3.6 mmol/L (0.5-1.9)
[2023-04-24] MEDS: 0.9 % SODIUM CHLORIDE 1000 ml 1,000 ML IV ×3 (04:11→05:17)
[2023-04-24 04:22] LABS: Albumin* 3.8 g/dL (3.3-5.0); Chloride* 98 mmol/L (96-114)
[2023-04-24 04:23] LABS: Sodium* 131 mmol/L (135-149)
[2023-04-24 04:25] LABS: Creatinine* 1.3 mg/dL (0.5-1.5); Est. Creatinine Clearance* 62.75; Estimated Glomerular Filt Rate 62 ml/min
[2023-04-24 04:26] LABS: Alanine Aminotransferase* 55 U/L (4-50); Alkaline Phosphatase* 113 U/L (40-150); Anion Gap 11 mEq/L (7-15); Bilirubin Direct* 1.8 mg/dL (0.0-0.5); Bilirubin Total* 4.6 mg/dL (0.1-1.5); Blood Urea Nitrogen* 21 mg/dL (7-30); Calcium* 8.1 mg/dL (8.4-10.6); Carbon Dioxide* 22 mmol/L (20-32); Glucose* 143 mg/dL (60-115); Total Protein* 7.6 g/dL (6.0-8.3)
[2023-04-24 04:29] LABS: C Reactive Protein* 7.9 mg/dL (0.5-1.0)
[2023-04-24 04:45] LABS: Procalcitonin* 8.52 ng/mL (<0.50)
[2023-04-24 04:52] LABS: Aspartate Amino Transferase* 33 U/L (12-35); Potassium* 3.8 mmol/L (3.6-5.1)
[2023-04-24 04:53] LABS: SARS PCR* Negative SARS-CoV-2 (Negative)
[2023-04-24 04:54] LABS: PCR FLU A Negative PCR FLU A (Negative); PCR FLU B Negative PCR FLU B (Negative); PCR RSV Negative PCR RSV (Negative)
--- NOTE | 2023-04-24 05:03 | CRLHL7_ITS ---
For Patients: As a result of the Century Cures Act, medical imaging exams and procedure reports are released immediately into your electronic medical record. You may view this report before your referring provider. If you have questions, please contact your health care provider. Indication: Sepsis, elevated bilirubin Technique: Volumetric multidetector CT images of the chest, abdomen, and pelvis were obtained after the administration of intravenous contrast. 93 cc Isovue 370 low osmolar intravenous contrast Comparison: Single-view chest April 24, 2023 FINDINGS: CHEST The thoracic inlet is unremarkable. The thyroid gland is within normal limits. The thoracic aorta is nonaneurysmal. There is no filling defect to suggest pulmonary embolus. There are reactive mediastinal and hilar lymph nodes. There is mild central bronchial thickening with redemonstration of airspace and ground-glass opacity in right lower lobe likely representing developing infiltrate and/or edema. Additional patchy airspace opacity in the central left lower lobe is appreciated. The thoracic osseus structures are intact without fracture, lytic, or blastic lesion. The thoracic vertebral body heights are grossly maintained in satisfactory alignment without evidence of displaced fracture. ABDOMEN AND PELVIS The liver is normal in attenuation and size. The portal vein is patent. The spleen is normal in attenuation and size. The gallbladder is unremarkable without radiopaque calculus. There is no intrahepatic or common ductal dilatation. The stomach and duodenum are grossly unremarkable. The pancreas is normal in enhancement without significant atrophy. The adrenal glands are unremarkable without evidence of adenoma. The kidneys are preserved and corticomedullary differentiation. There is no hydronephrosis or radiopaque calculus. There is a minimal distal amount of intracolonic stool. There is minimal colonic diverticulosis. There is nonspecific fluid filled central small-bowel. The appendix is unremarkable without significant inflammatory change. The abdominal aorta is nonaneurysmal with no significant atherosclerotic disease. The remaining solid pelvic viscera are otherwise grossly unremarkable. There is no pathologically enlarged epigastric, mesenteric, retroperitoneal, or pelvic sidewall lymph node. The anterior abdominal wall is grossly intact without significant hernias. There is no free air or free fluid. The visualized osseous structures are grossly intact without evidence of displaced fracture, lytic or blastic lesion. The lumbar vertebral body heights are grossly maintained with endplate Schmorl`s effects. There is minimal retrolisthesis of L4 on L5. There is mild multilevel degenerative disc disease. Impression: 1. Redemonstration of developing dense airspace opacity within the predominantly right lower lobe likely representing developing infiltrate. Additional focal airspace opacity in the superior aspect of the left lower lobe is seen. 2. Mild hepatomegaly without evidence of focal abnormality. 3. No acute intra-abdominal abnormality is identified. Please note that all CT scans at this facility use dose modulation, iterative reconstruction, and/or weight-based dosing when appropriate to reduce radiation dose to as low as reasonably achievable. Dictated by Deonte Em MD @ 04/24/2023 6:31:47 AM (Electronically Signed)
[2023-04-24] MEDS: PIPERACILLIN/TAZOBACTAM 3.375 GM in 0.9 % SODIUM CHLORIDE Mini-bag 100 ML IVPB (05:16)
[2023-04-24 05:17] LABS: Appearance Urine Cloudy (Clear); Bilirubin Urine 1+ (Negative); Blood Urine Trace-lysed (Negative); Color Urine Yellow (Yellow); Glucose Urine Negative (Negative); Ketones Urine Negative (Negative); Leukocyte Esterase Urine Negative (Negative); Nitrite Urine Positive (Negative); Protein Urine 1+ (Negative); pH Urine 5.5 (5.0-8.5)
[2023-04-24 05:29] LABS: Bacteria Urine Moderate; RBC Urine 0-2 (0-2); Squamous Epithelial Cell Urine Few (None-Few)
--- NOTE | 2023-04-25 02:04 | PC.NURSE ---
Pos blood culture results called to [place], results given to charge nurse of unit and results faxed to [phone]
--- NOTE | 2023-04-25 21:27 | ED.NURSE ---
Positive blood culture result from lab (haemophilus). Patient was transferred to [facility] on 04/24/23. Results called to current [facility] ([facility]/Onc) Charge Nurse, Mishel, and faxed to [phone].
== END 2023-04-24 08:30 | disposition short-term general hospital (02) ==
PROVIDERS: Emergency Provider Emergency Medicine; PCP Family Medicine
DX: A41.9 Sepsis, unspecified organism (principal)
CPT/HCPCS: 36415; 71045; 71260; 74177; 80048; 80076; 81001; 83605; 84145; 85025; 86140; 87040; 87077; 87086; 87185; 87186; 87631; 88112; 88305; 93005; 94761; 99285; 99291; J2543; J3370; J7030; J7120; Q9967

== ENCOUNTER 2023-10-20 13:33 | Outpatient (CLI) | payer OTHER, SELFPAY ==
--- OUTSIDE RECORDS SUMMARY | 2023-10-24 05:23 | XMS_ITS | Clinical Summary ---
Author Organization [facility] Address [address] [place] [id number] Care Team Providers Care Planner Internship Name Role Phone Elsewhere, Pcp Primary Care Provider Unavailabl e Source Comments Patient records contain information from all sites at [facility]. For routine questions regarding patient records, call [phone] during business hours, M-F 8:00 AM - 5:00 PM Central Time. Record requests for emergency care only can be directed to [phone] at any time.[facility] Allergies No known active allergies Medications Medication Sig Dispensed Refills Start Date End Date Status acyclovir (ZOVIRAX) 400 mg tabletIndication s:HSV, non-HARDWOOD FLOOR LAYER Take 2 tablets (800 mg total) by mouth 2 (two) times a day for 10 days Indications: HSV, non-HARDWOOD FLOOR LAYER. 10 day course for presumed HSV lesions. Upon completion begin taking acyclovir 400 mg daily. 40 tablet 4 11/01/19 24 Active amoxicillin-pot clavulanate (AUGMENTIN) 875-125 mg per tabletIndication s:Respiratory tract infection, community acquired Take 1 tablet by mouth every 12 (twelve) hours for 15 doses Indications: Respiratory tract infection, community acquired. End of treatment (final dose) 10/29/23. 15 tablet 4 10/30/19 24 Active acyclovir (ZOVIRAX) 400 mg tablet Take 1 tablet (400 mg total) by mouth daily. Begin upon completion of 10 day acyclovir treatment dose. 180 tablet 3 4 Active cholecalciferol, vitamin D3, 25 mcg (1,000 Unit) tablet Take 25 mcg by mouth daily. 10/22/19 24 Discontinued(Sto p Taking at Discharge) multivitamin capsule Take 1 capsule by mouth daily. 10/22/19 24 Discontinued(Sto p Taking at Discharge) ursodioL (ACTIGALL) 500 mg tablet Take 1 tablet (500 mg total) by mouth daily. 3 10/22/19 24 Discontinued(Sto p Taking at Discharge) acyclovir (ZOVIRAX) 400 mg tablet take one tablet by mouth twice daily 90 tablet 4 10/14/19 24 Discontinued acyclovir (ZOVIRAX) 400 mg tablet take one tablet by mouth twice daily 180 tablet 3 4 10/22/19 24 Discontinued Active Problems Patient Care Coordination No te Formatting of this note is d ifferent from the original. Survivorship and Health Maintenance Testing initiated at Day +100 timeframe, then repeated annually as needed: Bone Marrow Biopsy: 03/05/21 Sort Chimerism: 03/05/21 PFTs: 12/17/21 DEXA scan: 03/18/22 Vitamin Lipid Panel: 03/18/22 (non fasting) TSH: 03/18/22 HgA1C: 03/18/22 Ferritin: 03/05/21 (590) Colonoscopy: Negative Cologuard 01/03/22 PSA: 03/18/22 Testosterone: 03/18/22 Dental: Scheduled for September 2021 Eye: Early Mar 2020 Dermatology: Immunizations: Diphtheria/Tetanus/Pertussis (DTaP) 03/05/20 06/12/20 09/26/20 X Hepatitis A (Hep A) 03/05/20 X X 12/04/20 Hepatitis B (Heplisav) 03/05/20 06/12/20 X X Haemophilus influenzae type B (HiB) 03/05/20 06/12/20 09/26/20 X Meningococcal 4 valent MCV4 (Menveo) 03/05/20 06/12/20 X X Meningococcal B vaccine (Bexsero - if patient is age 10-25) 03/05/20 06/12/20 X X Pneumonia vaccine (PCV13) 03/05/20 06/12/20 09/26/20 12/04/20 Polio (IPV) 03/05/20 06/12/20 09/26/20 X Shingles (Shingrix) 03/05/20 06/12/20 X X Human Papillomavirus (if younger than 45 years old) NA NA X NA Influenza: 02/01/22 COVID series: #5 02/28/22 MMR: #2 03/18/22 Local Provider/Laboratory: [facility] in [place] Problem Noted Date Diagnosed Date Cough Acute 10/22/2023 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 Pneumonia Community Acquired 10/21/2023 Pneumonia 04/27/2023 Sepsis 04/24/2023 Wart 03/24/2023 Keratosis Seborrheic 03/24/2023 Dermatoheliosis 03/24/2023 Angioma Aponte 03/24/2023 Nevi Multiple 03/24/2023 Tumor Skin Uncertain Behavior 03/24/2023 Cerumen Impacted Bilateral 08/19/2022 Cough Acute 08/19/2022 Candidiasis Oral 08/19/2022 COVID-19 Infection 04/06/2022 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 Age Related Nuclear Cataract Bilateral Overview: Added automatically from request for surgery [id number] Thrombocytopenia 04/05/2019 Hypoxia Sleep Related 03/24/2019 Pneumonia Atypical 03/16/2019 Transplant Stem Cell 02/23/2019 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 10/22/2023 Clinical Communication [facility], Ninth Floor [address] [place] [phone] Magali Rutherford APRN, C.N.P., D.N.P. Post Hospital Follow-up 10/22/2023 Clinical Communication [facility] in [place], [place] [address] [place] [phone] Melida Thorne R.N., BMT-CN Lab Monitoring 10/20/2023 2:42 PM CDT - 10/22/2023 3:45 PM CDT Hospital Encounter [facility], [facility], [facility], Ninth Floor [address] [place] [phone] Amaya Reina APRN, C.N.P., D.N.P. Nahid Francisco M.D. Dmitry Pierce M.D., Ph.D. Dysphagia [R13.10] (Primary Dx) Discharge Disposition: Home or Self Care 10/20/2023 Orders Only [facility] in [place], [place] [address] [place] [phone] External, Ordering Provider, MMiguel 10/20/2023 Orders Only [facility] Clinical [facility] in [place], [place] [address] [place] [phone] External, Ordering Provider, MMiguel 10/20/2023 Intake [facility] 10/20/2023 Orders Only [facility] Clinical [facility] in [place], [place] [address] [place] [phone] Amaya Reina APRN, C.N.P., D.N.P. 10/20/2023 Clinical Communication [facility] in [place], [place] [address] [place] [phone] Sharan Champion M.B., B.Ch. Phone Contact 10/14/2023 Refill [facility] for Trans[facility] Clinical Regeneration in [place], [place] [address] [place] [address] Sharan Champion M.B., B.Ch. Med Refill 08/20/2023 Refill [facility] Clinical [facility] in [place], [place] [address] [place] [address] Amaya Reina, KERI, C.N.P., D.N.P. Med Refill from Last 3 Months Immunizations Name Administration Dates Next Due DTaP-IPV/Hib (Pentacel) 09/26/2020,06/12/2020, HepA Adult 12/04/2020, 0,12/30/1999,1999 HepB Adult 07/18/2008,02/14/2008,01/14/2008 HepB Adult (HEPLISAV-B) 06/12/2020,03/05/2020 Influenza (IM) Preservative Free 05/02/2011,10/2008 Influenza TIV (IM) 02/15/2014, 3,03/03/2012,2010,03/18/2010,03/28/2009 Influenza, Injectable, Quadrivalent 03/01,02/25/2018,02/12/2018,2016 Influenza, Seasonal, Injectable 02/16/20 14,03/17/2013,03/03/2012,2009 MCV4 (Menveo) 06/12/2020,03/05/2020 MMR 03/18/2022,12/17/2021 MenB (BEXSERO) 06/12/2020, 0,03/05/2020(Deferr ed: Other - duplicate dose) PCV13 12/04/2020, 1,06/12/2020,2019 RSV: respiratory syncytial v irus (AREXVY) recombinant vaccine 04/16/2023 RZV (SHINGRIX) 06/12/2020,03/05/2020 SARS-COV-2 (COVID-19) - MODE RNA (12 YEARS AND OLDER) [id number] 04/16/2023 SARS-COV-2 (COVID-19) - PFIZ ER (Discontinued)(12 years or older) 01/17/2021,09/11/2020,08/17/2020 SARS-COV-2 (COVID-19) - PFIZ ER BIVALENT TS(Discontinued)(12 YEARS OR OLDER) 02/28/2022 SARS-COV-2 (COVID-19) - PFIZ ER TS(Discontinued)(12 years or older) 09/13/2021 Tdap 04/15/2016,01/02/2006 TyVi (inj) 01/14/2008 influenza high dose (65 year s or older) (PF) 04/12/2019 influenza vaccine quad (FLUZONE/FLUARIX) (6 months and older)(PF) 02/28/2022,03/13/2021,03/01/2020,2015 Family History Medical History Relation Name Comments Glaucoma Brother Coronary artery disease Father theresa martinez Hypertension Father theresa martinez Amblyopia Neg Hx Blindness Neg Hx Cataracts Neg Hx Macular degeneration Neg Hx Retinal degeneration Neg Hx Retinal detachment Neg Hx Strabismus Neg Hx Relation Name Status Comments Brother Father theresa martinez Social History Tobacco Use Types Packs/Day Years Used Date Smoking Tobacco: Never Smokeless Tobacco: Never Tobacco Cessation:Counseling Given: Not Answered Alcohol Use Standard Drinks/Week Comments Yes 1 (1 standard drink = 0.6 oz pur e alcohol) [facility] Utilities Answer Date Recorded In the past 12 months has [facility] [place] [employer] gas, oil, or water [employer] threatened to shut off services in your home? No 10/20/2023 Humiliation, Afraid, Rape, and Kick questionnair e Answer Date Recorded Within the last year, have y ou been afraid of your partner or ex-partner? No 10/20/2023 Within the last year, have y ou been humiliated or emotionally abused in other ways by your partner or ex-partner? No Within the last year, have y ou been kicked, hit, slapped, or otherwise physically hurt by your partner or ex-partner? No 10/20/2023 Within the last year, have y ou been raped or forced to have any kind of sexual activity by your partner or ex-partner? No 10/20/2023 Social Connection and Isolat ion Panel [NHANES] Answer Date Recorded In a typical week, how many times do you talk on the phone with family, friends, or neighbors? Twice a week 06/21/2022 How often do you get togethe r with friends or relatives? Once a week 06/21/2022 How often do you attend chur ch or hinduism services? More than 4 times per year 06/21/2022 Do you belong to any clubs o r organizations such as zoroastrian groups, unions, fraternal or athletic groups, or school groups? Yes 06/21/2022 How often do you attend meet ings of the clubs or organizations you belong to? More than 4 times per year 06/21/2022 Are you , , di vorced, , never , or living with a partner? 06/21/2022 AUDIT-C Answer Date Recorded Q1: How often do you have a drink containing alc ohol? Never 06/21/2022 Average Number of Drinks Not on file 023 Frequency of Binge Drinking Not on file 06/02 Overall Financial Resource Strain (CARDIA) Answe r Date Recorded How hard is it for you to pa y for the very basics like food, housing, medical care, and heating? Not hard at all 06/21/2022 PHQ-2 Answer Date Recorded PHQ-2 Score 0 04/12/2023 [facility] - Occupational Stress Questionnaire Answer Date Recorded Do you feel stress - tense, restless, nervous, or anxious, or unable to sleep at night because your mind is troubled all the time - these days? Not at all 06/21/2022 Exercise Vital Sign Answer Date Recorde d On average, how many days pe r week do you engage in moderate to strenuous exercise (like a brisk walk)? 7 days 06/21/2022 On average, how many minutes do you engage in exercise at this level? 30 min 06/21/2022 Hunger Vital Sign Answer Date Recorded Within the past 12 months, y ou worried that your food would run out before you got the money to buy more. Never true 10/20/19 24 Within the past 12 months, t he food you bought just didn't last and you didn't have money to get more. Never true 10/20/2023 PRAPARE - Transportation Answer Date Re corded In the past 12 months, has l ack of transportation kept you from medical appointments or from getting medications? No 09/30 In the past 12 months, has l ack of transportation kept you from meetings, work, or from getting things needed for daily living? No 10/20/2023 Nutrition Answer Date Recorded On average, how many serving s of fruits and vegetables do you eat per day (serving size is equal to 1 cup or approximately the size of a tennis ball)? 2-3 06/21/2022 Dental Answer Date Recorded Dental: Regular Dentist Yes 12/01/19 Employment Answer Date Recorded Employment status Employed and actively working without restrictions 06/21/2022 Housing Stability Answer Date Recorded What is your living situation today? I have a [facility] to live 10/20/2023 Education Answer Date Recorded What is the highest level of school you have completed or the highest degree you have received? 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 Sexual Orientation Straight 05/26/2019 9: 19 AM LEASING DIRECTOR Last Filed Vital Signs Vital Sign Reading Time Taken Comments Blood Pressure 114/70 10/22/2023 3:00 PM CDT Pulse 65 10/22/2023 3:00 PM CDT Temperature 36.6 ??C (97.9 ??F) 10/22/2023 3:00 PM CD T Respiratory Rate 16 10/22/2023 3:00 PM CDT Oxygen Saturation 95% 10/22/2023 3:00 PM CDT Inhaled Oxygen Concentration - - Weight 84.4 kg (186 lb 1.1 oz) 10/22/2023 8:09 A M CDT Height 182.9 cm (6') 10/20/2023 2:55 PM CDT Body Mass Index 25.24 10/20/2023 2:55 PM CDT Plan of Treatment Upcoming Encounters Date Type Department Care Team (Late st Contact Info) Description 10/30/2023 2:00 PM CDT [facility] [place], [place] [address] [place] [address] Magali Rutherford APRN, C.N.P., D.N.P. [address] [place] [address] Health Maintenance Due Date Last Done Comments CT Colonography 1961 Colonoscopy 1961 Dental Prophylaxis 1961 FIT 1961 HIV Screening 1961 Serum Protein Electrophoresis 01/19/2020 01/18/2019 Dilated Eye Exam 03/12/2022 09/10/2021, , 02/22/2021, Additional history exists Depression Screening (Annual PHQ-2) 06/01/2023 Bone Density Scan Monitoring 03/24/2024, 03/18/2022, 03/05/2021, Additional history exists Lipid (Cholesterol) Screening 03/24/2024, 04/22/2022, 03/18/2022, Additional history exists PSA: Prostate Cancer Screening 03/24/2024 03/24/2023, 03/18/2022 Spirometry with DLCO or PFT 03/24/202403/02, 12/17/2021, 09/04/2020, Additional history exists Thyroid Function [place] 03/24/2024 023, 03/18/2022, 03/05/2021, Additional history exists Vitamin D Testing 03/24/2024 03/24/2023, , 03/01/2020, Additional history exists Urinalysis 04/21/2024 10/20/2023, 04/02, 03/19/2019, Additional history exists Cologuard 01/11/2025 01/11/2022, 01/03/2022 Colorectal Cancer Screening 01/11/2025 Fasting Glucose for Diabetes Screening 10/21/2026 10/22/2023, 10/21/2023, 10/20/2023, Additional history exists DTaP,Tdap,and Td Vaccines (6 - Td or Tdap) 09/26/2030 09/26/2020, 06/12/2020, 03/05/2020, Additional history exists Hepatitis C Screening Completed 01/18/2019 Hepatitis B Vaccines Completed 06/12/2020, 03/05/2020, 07/18/2008, Additional history exists Zoster Vaccines Completed 06/12/2020, 03/05/2020 Hepatitis A Vaccines Completed 12/04/2020, 03/05/2020, 12/30/1999, Additional history exists Pneumococcal vaccine (0-64 years) Aged Out 12/04/2020, 09/26/2020, 06/12/2020, Additional history exists No longer eligible based on patient's age to complete this topic Influenza Vaccine Completed 02/27/2023, , 03/13/2021, Additional history exists COVID-19 Vaccine Completed 04/16/2023, , 09/13/2021, Additional history exists RSV vaccine - (32-3 6 weeks) or 60+ years Completed 04/16/2023 HPV Vaccines Aged Out No longer eligi ble based on patient's age to complete this topic Medical Devices Implanted Type Area Pit Shovel Operator Device Identifier Shelf Expiration Date Model / Serial / Lot Lens Tcn Mnfcl Dcb00 +14.0d - [id number] - [id number] Implanted:Qty : 1 on 07/29/2021 by Robi Bailon M.D. at [facility] Ocular Lens Left: Eye [employer] (Previously ROSA MARIA) 05/05/2024 [id number] / [id number] / Lens Tcn Mnfcl Dcb00 +14.0d - [id number] - [id number] Implanted:Qty : 1 on 08/19/2021 by Robi Bailon M.D. at [facility] Ocular Lens Right: Eye [employer] (Previously ROSA MARIA) 05/05/2024 [id number] / [id number] / Explanted Type Area Pit Shovel Operator Device Identifier Shelf Expiration Date Model / Serial / Lot Implantable Port Explanted:06/10 (Quantity not on file) Implantable Port Chest Description:Upper right Procedures Procedure Name Priority Date/Time Associated Diagnosis Comments CBC NO CALL BACK, REFLEX T/S Routine 10/22/2023 3:17 AM CDT COMPREHENSIVE METABOLIC PANEL, S/P Routine 10/22/2023 3:17 AM CDT HISTOPLASMA/BLASTOMY SHAWN AG, EIA, S Routine 10/22/2023 3:17 AM CDT ASPERGILLUS AG Routine 10/22/2023 3:17 AM CDT FUNGAL SMEAR Routine 10/21/2023 1:23 PM CDT GRAM STAIN Routine 10/21/2023 1:23 PM CDT LEGIONELLA AG, U Routine 10/21/2023 1:23 PM CDT STREPTOCOCCUS PNEUMONIAE AG, U Routine 10/21/2023 1:23 PM CDT BACTERIAL CULTURE, AEROBIC + SUSC, RESP Routine 10/21/2023 1:23 PM CDT ASPERGILLUS AG Routine 10/21/2023 1:17 PM CDT (1, 3) [id number] (FUNGITELL), S Routine 10/21/2023 1:17 PM CDT BILIRUBIN DIRECT, S/P Routine 10/21/2023 3:09 AM CDT COMPREHENSIVE METABOLIC PANEL, S/P Routine 10/21/2023 3:09 AM CDT CBC WITH DIFFERENTIAL, B Routine 10/21/2023 3:09 AM CDT IMMUNOGLOBULIN G (IGG), S Routine 10/21/2023 3:06 AM CDT RESPIRATORY PANEL, PCR, TITLE INSURANCE SALES REPRESENTATIVE Routine 10/20/2023 6:38 PM CDT VRE PCR Routine 10/20/2023 6:[address] CHEST WITHOUT IV CONTRAST RAD - Routine (most inpatients and all outpatients) 10/20/2023 4:35 PM CDT DIPSTICK, U STAT 10/20/2023 4:29 PM CDT OSMOLALITY, U STAT 10/20/2023 4:29 PM CDT MICROSCOPIC AUTOMATED STAT 10/20/2023 4:29 PM CDT PH, U STAT 10/20/2023 4:29 PM CDT URINALYSIS WITH MICROSCOPIC STAT 10/20/2023 4:29 PM CDT BACTERIAL CULTURE, AEROBIC + SUSC, URINE STAT 10/20/2023 4:29 PM CDT DX CHEST AP OR PA AND LATERAL 2 VIEWS RAD - Emergent (Fastest; for the most critically ill patients) 10/20/2023 3:23 PM CDT SPSMA RESULT Routine 10/20/2023 3:16 PM CDT BACTERIA / TERESA CULTURE, BLOOD STAT 10/20/2023 3:15 PM CDT BACTERIA / TERESA CULTURE, BLOOD STAT 10/20/2023 3:09 PM CDT CBC NO CALL BACK, REFLEX T/S STAT 10/20/2023 3:08 PM CDT LACTATE, B/P STAT 10/20/2023 3:08 PM CDT EXTM MAGNESIUM, S Routine 10/20/2023 10:23 AM CDT EXTP COMPLETE METABOLIC PANEL, BLOOD Routine 10/20/2023 10:23 AM CDT EXTM CREATININE WITH EGFR, S/P Routine 10/20/2023 10:23 AM CDT EXTP COMPLETE BLOOD COUNT, BLOOD Routine 10/20/2023 10:23 AM CDT BMD BONE DENSITY SPINE HIPS RAD - Routine (most inpatients and all outpatients) 03/24/2023 12:36 PM CDT 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) Transplant Bone Marrow Allogeneic (HCC) PULMONARY FUNCTION TESTS Routine 03/24/2023 8:51 AM CDT 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) Transplant Bone Marrow Allogeneic (HCC) LIPID PANEL, S Routine 03/24/2023 8:15 AM CDT 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) Transplant Bone Marrow Allogeneic (HCC) 25-HYDROXYVITAMIN D2 AND D3, S Routine 03/24/2023 8:15 AM CDT 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) Transplant Bone Marrow Allogeneic (HCC) PROSTATE-SPECIFIC AG (PSA) SCRN, S Routine 03/24/2023 8:15 AM CDT 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) Transplant Bone Marrow Allogeneic (HCC) THYROID FUNCTION CASCADE, S Routine 03/24/2023 8:15 AM CDT 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) Transplant Bone Marrow Allogeneic (HCC) COLOGUARD Routine 01/03/2022 7:10 AM CDT 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) Transplant Stem Cell (HCC) OPHTHALMOLOGY IMAGE EXAM Routine 02/22/2021 9:45 AM CDT ELECTROPHORESIS, PROTEIN, S Routine 01/18/2019 9:48 AM CDT Acute Myeloblastic Leukemia In Relapse (HCC) Transplant Stem Cell (HCC) MBC TISSUE DONOR SCREEN TEST SET Routine 01/18/2019 9:47 AM CDT Acute Myeloblastic Leukemia In Relapse (HCC) Transplant Stem Cell (HCC) from Last 3 Months or Most Recently Relevant to Health Maintenance Results * Histoplasma and Blastomyces Antigen, Enzyme Immunoassay, Serum (10/22/2023 3:17 AM CDT) Pathologist [facility] Histoplasma/Blasto myces Ag Result Not Detected Not Detected 10/22/2023 11:30 AM CDT [facility] Comment: No antigen from Histoplasma or Blastomyces detected. ??False negative results may occur depending on extent of disease, and/or site of infection. ??Repeat testing on a new specimen if clinically indicated. ?? Histoplasma/Blasto myces Ag Value Not Detected ng/mL 10/22/2023 11:30 AM CDT [facility] Comment: ----ADDITIONAL INFORMATION---- This test was developed and its performance characteristics determined by [facility] in a manner consistent with CLIA requirements. This test has not been cleared or approved by the U.S. Food and Drug Administration. Blood (Blood, Venous) 10/22/2023 3:17 AM CDT 10/22/2023 7:56 AM CDT Magali Rutherford APRN, C.N.P., D.N .P. LAB MICROBIOLOGY - BLOOD ORDERABLES Performing Organization Address City/State/[facility] Co de Phone Number [facility] [address] [place] [address] [facility] [address] [place] [address] [place] [address] * (ABNORMAL) CBC no call back, reflex T/S HGB <8 (10/22/2023 3:17 AM CDT) Only the most recent of2 resultswithin the time period is included. Pathologist [facility] Hemoglobin 14.3 13.2 - 16.6 g/dL 10/22/2023 3:45 AM CDT DTL Hematocrit 43.0 38.3 - 48.6 % 10/22/2023 3:45 AM CDT DTL Erythrocytes 4.55 4.35 - 5.65 x10(12)/L 10/22/2023 3:45 AM CDT DTL MCV 94.5 78.2 - 97.9 fL 10/22/2023 3:45 AM CDT DTL RBC Distrib Width 14.0 11.8 - 14.5 % 10/22/2023 3:45 AM CDT DTL Platelet Count 228 135 - 317 x10(9)/L 10/22/2023 3:45 AM CDT DTL Leukocytes 17.8(H) 3.4 - 9.6 x10(9)/L 10/22/2023 3:45 AM CDT DTL Neutrophils 12.61(H) 1.56 - 6.45 x10(9)/L 10/22/2023 3:45 AM CDT [facility] Lymphocytes 3.48(H) 0.95 - 3.07 x10(9)/L 10/22/2023 3:45 AM CDT DTL Monocytes 1.41(H) 0.26 - 0.81 x10(9)/L 10/22/2023 3:45 AM CDT DTL Eosinophils 0.26 0.03 - 0.48 x10(9)/L 10/22/2023 3:45 AM CDT DTL Basophils 0.06 0.01 - 0.08 x10(9)/L 10/22/2023 3:45 AM CDT DTL Blood (Blood, Venous) 10/22/2023 3:17 AM CDT 10/22/2023 3:41 AM CDT Magali Rutherford APRN, C.N.P., D.N .P. LAB BLOOD NON ADD-ON [facility] [address] [place] [address], [facility] DTL [facility] [address] [place] [address] [facility] [address] [place] [address] * Aspergillus Ag (10/22/2023 3:17 AM CDT) Only the most recent of2 resultswithin the time period is included. Aspergillus Ag, S <0.500 <0.5 index 10/22/2023 12:24 PM CDT [facility] Comment: ----ADDITIONAL INFORMATION---- This is a qualitative test and the resulted index value is not indicative of disease severity. ??Serial testing is recommended for patients at high risk for invasive aspergillosis. This assay was performed using the FDA-cleared [employer] Platelia Aspergillus Galactomannan EIA. Blood (Blood, Venous) 10/22/2023 3:17 AM CDT 10/22/2023 7:37 AM CDT Magali Rutherford APRN, C.N.P., D.N .P. LAB MICROBIOLOGY - BLOOD ORDERABLES [facility] [address] [place] [address] [facility] [address] [place] [address] [place] [address] * (ABNORMAL) Comprehensive Metabolic Panel (10/22/2023 3:17 AM CDT) Only the most recent of2 resultswithin the time period is included. [facility] Potassium, S 5.1 3.6 - 5.2 mmol/L 10/22/2023 4:19 AM CDT DTL Sodium, S 138 135 - 145 mmol/L 10/22/2023 4:19 AM CDT DTL Chloride, S 106 98 - 107 mmol/L 10/22/2023 4:19 AM CDT DTL Bicarbonate, S 23 22 - 29 mmol/L 10/22/2023 4:19 AM CDT DTL Anion Gap 9 7 - 15 10/22/2023 4:19 AM CDT DTL BUN (Blood Urea Nitrogen), S 16 8 - 24 mg/dL 10/22/2023 4:19 AM CDT DTL Creatinine 0.94 0.74 - 1.35 mg/dL 10/22/2023 4:19 AM CDT DTL Estimated GFR (eGFR) >90 >=60 mL/min/BS A 10/22/2023 4:19 AM CDT DTL Comment: Estimated GFR calculated using the 2020 CKD_EPI creatinine equation. Calcium, Total, S 8.7(L) 8.8 - 10.2 mg/dL 10/22/2023 4:19 AM CDT DTL Glucose, S 106 70 - 140 mg/dL 10/22/2023 4:19 AM CDT DTL Protein, Total, S 6.3 6.3 - 7.9 g/dL 10/22/2023 4:19 AM CDT DTL Albumin, S 3.4(L) 3.5 - 5.0 g/dL 10/22/2023 4:19 AM CDT DTL Aspartate Aminotransferase (AST), S CANCELED U/L 10/22/2023 6:42 AM CDT DTL Comment: Specimen was hemolyzed. Redraw has been ordered and is in progress. Result canceled by the ancillary. Alkaline Phosphatase, S 129 40 - 129 U/L 10/22/2023 4:19 AM CDT DTL Alanine Aminotransferase (ALT), S 44 7 - 55 U/L 10/22/2023 4:19 AM CDT DTL Bilirubin, Total, S 0.6 0.0 - 1.2 mg/dL 10/22/2023 4:19 AM CDT DTL Blood (Blood, Venous) 10/22/2023 3:17 AM CDT 10/22/2023 3:50 AM CDT Magali Rutherford APRN, C.N.P., D.N .P. LAB BLOOD ADD-ON [facility] [address] [place] [address], [facility] [address] [place] [address] * Bacterial Culture, Aerobic + Susceptibility, Respiratory (10/21/2023 1:23 PM CDT) Bacterial Culture, Aerobic, Resp Upper respiratory/or al microbiota 10/23/2023 11:30 AM CDT DTL Sputum (Sputum) 10/21/2023 1 :23 PM CDT 10/21/2023 6:10 PM CDT Comment:Specimen Source Site : Sputum Magali Rutherford APRN, C.N.P., D.N .P. LAB MICROBIOLOGY - GENERAL ORDERABLES Performing Organization Address City/[facility]/ZIP Co de Phone Number [facility] [address] [place] [address], [facility] [address] [place] [address] * Streptococcus pneumoniae Antigen, Urine (10/21/2023 1:23 PM CDT) Streptococcus pneumoniae Ag, U Negative Negative 10/22/2023 12:28 PM CDT [facility] Comment: Negative for pneumococcal pneumonia, suggesting no current or recent infection. ??Infection due to S. pneumoniae cannot be ruled out since the antigen present in the sample may be below detection limit of the test. ----ADDITIONAL INFORMATION---- This assay was performed using the FDA-cleared BinaxNOW Streptococcus pneumoniae Antigen test, a rapid immunochromatographic assay. Urine (Urine, Midstream) 10/21/2023 1:23 PM CDT 10/21/2023 5:15 PM CDT Wilfredo Lockwood APRNN.Josselin, D.N .P. LAB MICROBIOLOGY - GENERAL ORDERABLES Performing Organization Address City/[facility]/ZIP Co de Phone Number [facility] [address] [place] [address] [facility] [address] [place] [address] [place] [address] * Legionella Antigen, Urine (10/21/2023 1:23 PM CDT) Legionella Ag, U Negative Negative 10/22/19 24 2:39 PM CDT [facility] Comment: Negative for L. pneumophila serogroup 1 antigen, suggesting no recent or current infection. ??Infection due to Legionella cannot be ruled out since other serogroups and species may cause disease, antigen may not be present in urine in early infection, and the level of antigen present in the urine may be below the detection limit of the test. ----ADDITIONAL INFORMATION---- This assay was performed using the FDA-cleared BinaxNOW Legionella Urinary Antigen Test, a rapid immunochromatographic assay. Urine (Urine, Midstream) 10/21/2023 1:23 PM CDT 10/21/2023 5:15 PM CDT Wilfredo Lockwood APRNNAlfonso, D.N .P. LAB MICROBIOLOGY - GENERAL ORDERABLES Performing Organization Address City/[facility]/ZIP Co de Phone Number [facility] [address] [place] [address] [facility] [address] [place] [address] [place] [address] * Fungal Smear (10/21/2023 1:23 PM CDT) Fungal Smear Negative. 10/22/2023 9:23 AM CDT DTL Sputum 10/21/2023 1:23 PM CDT 10/21/2023 6:10 PM CDT Comment:Specimen Source Site : Sputum Wilfredo Lockwood APRNN.Josselin, D.N .P. LAB MICROBIOLOGY - GENERAL ORDERABLES Performing Organization Address [facility]/ZIP Co de Phone Number [facility] [address] [place] [address], [facility] [address] [place] [address] * Gram Stain (10/21/2023 1:23 PM CDT) Gram Stain Upper respiratory/ora l microbiota White blood cells, Many Epithelial cells, Moderate 10/21/2023 10:51 PM CDT DTL Sputum 10/21/2023 1:23 PM CDT 10/21/2023 6:10 PM CDT Comment:Specimen Source Site : Sputum Wilfredo Lockwood APRNN.Josselin, D.N .P. LAB MICROBIOLOGY - GENERAL ORDERABLES Performing Organization Address City/[facility]/ZIP Co de Phone Number [facility] [address] [place] [address], [facility] [address] [place] [address] * (1, 3) Uqyc-A-Ryjmjf (Fungitell), Serum (10/21/2023 1:17 PM CDT) Pathologist [facility] (1, 3) Idxb-G-Cqjuvo, Quantitative <31 <60 pg/mL pg/mL 10/22/2023 10:34 AM CDT [facility] (1, 3) Idni-A-Ndldxz, Qualitative Negative Negative 10/22/2023 10:34 AM CDT [facility] Comment: No (1, 3) Cent-S-Zuapmv detected. ?? This assay does not detect certain fungi, including Cryptococcus species, which produce very low levels of (1, 3) Folp-L-Doaloj (BDG) and the Mucorales (e.g., Lichthemia, Mucor and Rhizopus), which are not known to produce BDG. Additionally, the yeast phase of Blastomyces dermatitidis produces little BDG and may not be detected by this assay. ----ADDITIONAL INFORMATION---- This assay was performed using the FDA-cleared Fungitell Assay ([facility], [place], [place], [facility]), a kinetic REBEKA based on modification of the Limulus Amebocyte Lysate pathway. Blood (Blood, Venous) 10/21/2023 1:17 PM CDT 10/21/2023 5:15 PM CDT Magali Rutherford APRN, C.N.P., D.N .P. LAB MICROBIOLOGY - BLOOD ORDERABLES [facility] [address] [place] [address] [facility] [address] [place] [address] [place] [address] * (ABNORMAL) CBC with Differential, Blood (10/21/2023 3:09 AM CDT) Pathologist [facility] Hemoglobin 14.4 13.2 - 16.6 g/dL 10/21/2023 3:22 AM CDT DTL Hematocrit 42.0 38.3 - 48.6 % 10/21/2023 3:22 AM CDT DTL Erythrocytes 4.45 4.35 - 5.65 x10(12)/L 10/21/2023 3:22 AM CDT DTL MCV 94.4 78.2 - 97.9 fL 10/21/2023 3:22 AM CDT DTL RBC Distrib Width 14.2 11.8 - 14.5 % 10/21/2023 3:22 AM CDT DTL Platelet Count 207 135 - 317 x10(9)/L 10/21/2023 3:22 AM CDT DTL Leukocytes 36.9(H) 3.4 - 9.6 x10(9)/L 10/21/2023 3:22 AM CDT DTL Neutrophils 29.59(H) 1.56 - 6.45 x10(9)/L 10/21/2023 3:22 AM CDT [facility] Lymphocytes 4.64(H) 0.95 - 3.07 x10(9)/L 10/21/2023 3:22 AM CDT DTL Monocytes 2.41(H) 0.26 - 0.81 x10(9)/L 10/21/2023 3:22 AM CDT DTL Eosinophils 0.13 0.03 - 0.48 x10(9)/L 10/21/2023 3:22 AM CDT DTL Basophils 0.12(H) 0.01 - 0.08 x10(9)/L 10/21/2023 3:22 AM CDT DTL Blood (Blood, Venous) 10/21/2023 3:09 AM CDT 10/21/2023 3:17 AM CDT Orlando Ceja APRN, C.N.P., D.N.P. LAB BLOOD ADD-ON [facility] [address] [place] [address], [facility] DTL [facility] [address] [place] [address] [facility] [address] [place] [address] * (ABNORMAL) Bilirubin, Direct (10/21/2023 3:09 AM CDT) Bilirubin, Direct, S 0.4(H) 0.0 - 0.3 mg/dL 10/21/2023 4:06 AM CDT [facility] Blood (Blood, Venous) 10/21/2023 3:09 AM CDT 10/21/2023 3:42 AM CDT Orlando Ceja APRN, C.N.P., D.N.P. LAB BLOOD ADD-ON [facility] [address] [place] [address], [facility] [address] [place] [address] * Immunoglobulin G (IgG) (10/21/2023 3:06 AM CDT) Pathologist [facility] Immunoglobulin G (IgG), S 1470 767 - 1590 mg/dL 10/21/2023 7:26 PM CDT [facility] Blood (Blood, Venous) 10/21/2023 3:06 AM CDT 10/21/2023 5:14 PM CDT Magali Rutherford APRN, C.N.P., D.N .P. LAB BLOOD ADD-ON [facility] [address] [place] [address] [facility] [address] [place] [address] * Respiratory Panel, PCR, Nasopharyngeal (10/20/2023 6:38 PM CDT) Pathologist [facility] Specimen Source NASOPHARYNGEAL SWAB 10/20/2023 9:05 PM CDT DTL Adenovirus Undetected Undetected 10/20/2023 9:05 PM CDT DTL Coronavirus 229E Undetected Undetected 10/20/19 9:05 PM CDT DTL Coronavirus HKU1 Undetected Undetected 10/20/19 9:05 PM CDT DTL Coronavirus NL63 Undetected Undetected 10/20/19 9:05 PM CDT DTL Coronavirus OC43 Undetected Undetected 10/20/19 9:05 PM CDT DTL SARS Coronavirus-2 Undetected Undetected 10/20/2023 9:05 PM CDT DTL Comment: SARS-CoV-2 RNA absent. This result does not rule out COVID-19 in the patient, as the sensitivity of the test depends on the timing of the specimen collection and the quality of the specimen. Result should be correlated with patient's history and clinical presentation. Human Metapneumovirus Undetected Undetected 10/20/2023 9:05 PM CDT DTL Human Rhinovirus/ Enterovirus Undetected Undetected 10/20/2023 9:05 PM CDT DTL Influenza A Undetected Undetected 10/20/2023 9:05 PM CDT DTL Influenza B Undetected Undetected 10/20/2023 9:05 PM CDT DTL Parainfluenza Virus 1 Undetected Undetected 10/20/2023 9:05 PM CDT DTL Parainfluenza Virus 2 Undetected Undetected 10/20/2023 9:05 PM CDT DTL Parainfluenza Virus 3 Undetected Undetected 10/20/2023 9:05 PM CDT DTL Parainfluenza Virus 4 Undetected Undetected 10/20/2023 9:05 PM CDT DTL Respiratory Syncytial Virus Undetected Undetected 10/20/2023 9:05 PM CDT DTL Bordetella parapertussis Undetected Undetected 10/20/2023 9:05 PM CDT DTL Bordetella pertussis Undetected Undetected 10/20/2023 9:05 PM CDT DTL Chlamydia pneumoniae Undetected Undetected 10/20/2023 9:05 PM CDT DTL Mycoplasma pneumoniae Undetected Undetected 10/20/2023 9:05 PM CDT DTL Interpretation This assay is not predicted to detect SARS-coronavirus (CoV), or MERS-CoV. If SARS-CoV or MERS-CoV is suspected, coordinate testing through a local public health laboratory. 10/20/2023 9:05 PM CDT DTL Comment: ----ADDITIONAL INFORMATION---- This assay is performed using the FDA-Cleared FilmArray Respiratory Panel 2.1 ([employer]). This assay is performed using the FilmArray Respiratory Panel 2.1 ([employer]). For testing performed at [facility] in [place], [place], performance characteristics for samples submitted in phosphate buffered saline were determined by [facility] in a manner consistent with CLIA requirements. Swab (Nasopharynx) 10/20/2023 6:38 PM CDT 10/20/2023 7:04 PM CDT Orlando Ceja APRN, C.N.P., Everardo.N.P. LAB MICROBIOLOGY - GENERAL ORDERABLES Performing Organization Address [facility] Co de Phone Number [facility] [address] [place] [address], [facility] DT 200 [facility] 200 [place] [address] * VRE PCR (10/20/2023 6:38 PM CDT) Specimen Source Swab, Perianal 10/21/2023 9:54 PM CDT DTL VRE PCR Negative Negative 10/21/2023 9:54 PM CDT DTL Comment: ----ADDITIONAL INFORMATION---- This test was developed using an analyte specific reagent. Its performance characteristics were determined by [facility] in a manner consistent with CLIA requirements. This test has not been cleared or approved by the U.S. Food and Drug Administration. Swab (Perianal) 10/20/2023 6 :38 PM CDT 10/20/2023 7:08 PM CDT Orlando Ceja APRN, C.N.P., D.N.P. LAB MICROBIOLOGY - GENERAL ORDERABLES Performing Organization Address [facility] Co de Phone Number [facility] [address] [place] [address] [address] * CT Chest without IV Contrast (10/20/2023 4:35 PM CDT) Anatomical Region Laterality Modality Chest, Thoracic RST LOS, Tho racic ARZ LOS, Thoracic FLA LOS N/A Computed Tomography, Compute d Tomography Impressions 10/20/2023 4:58 PM CDT New glass and consolidative opacities in the left upper and lower lobes are likely infectious or inflammatory. Narrative 10/20/2023 4:58 PM CDT EXAM: CT CHEST WITHOUT IV CONTRAST COMPARISON: Same day chest radiograph 10/20/2023, CT chest 04/24/2023 FINDINGS: Since comparison exam, groundglass and nodular opacities in the right lower lobe have largely resolved, with a few residual groundglass opacities for example on series 3 image 398. New consolidative and groundglass opacities in the left lower lobe and groundglass opacities in the left upper lobe are new and are likely infectious or inflammatory. Scattered ill-defined groundglass opacities in the upper lung zones. Mild bronchial wall thickening, greatest in lower lungs. No pleural effusion or pneumothorax Central airways are patent. The main pulmonary artery is minimally enlarged measuring up to 3.1 cm, which can be seen with pulmonary hypertension. Normal caliber thoracic aorta. Vascular calcifications including the coronary arteries. The left vertebral artery arises from the aortic arch, a normal anatomic variant. No thoracic lymphadenopathy. Degenerative changes of the spine. Small hiatal hernia. Hepatic cyst or hemangioma. Procedure Note Flores Khan M.D. - 10/20/2023 EXAM: CT CHEST WITHOUT IV CONTRAST COMPARISON: Same day chest radiograph 10/20/2023, CT chest 04/24/2023 FINDINGS: Since comparison exam, groundglass and nodular opacities in the rightlower lobe have largely resolved, with a few residual groundglassopacities for example on series 3 image 398. New consolidative andgroundglass opacities in the left lower lobe and groundglass opacities in the left upper lobe are new and are likelyinfectious or inflammatory. Scattered ill-defined groundglass opacities inthe upper lung zones. Mild bronchial wall thickening, greatest in lowerlungs. No pleural effusion or pneumothorax Central airways are patent. The main pulmonary artery is minimally enlarged measuring up to 3.1 cm,which can be seen with pulmonary hypertension. Normal caliber thoracicaorta. Vascular calcifications including the coronary arteries. The leftvertebral artery arises from the aortic arch, a normal anatomic variant. No thoracic lymphadenopathy.Degenerative changes of the spine. Small hiatal hernia. Hepatic cyst or hemangioma. IMPRESSION: New glass and consolidative opacities in the left upper and lower lobesare likely infectious or inflammatory. Orlando Ceja APRN, C.N.P., D.N.P. IMG CT PROCEDURES * Dipstick, Urine (10/20/2023 4:29 PM CDT) Hemoglobin, QL Negative Negative 10/20/2023 5:07 PM CDT DTL Leukocyte Esterase, U Negative Negative 10/20/2023 5:07 PM CDT DTL Nitrite, U Negative Negative 10/20/2023 5:07 PM CDT DTL Ketones, U Negative Negative mg/dL 10/20/2023 5:07 PM CDT DTL Glucose, U Negative Negative mg/dL 10/20/2023 5:07 PM CDT DTL Urine 10/20/2023 4:29 PM CDT 10/20/2023 4:44 PM CDT Orlando Ceja APRN, Ovi.N.P., D.N.P. LAB URINE ORDERABLES Performing Organization Address City/[facility] Co de Phone Number [facility] [address] [facility] [address] [place] [address] * Microscopic Automated (10/20/2023 4:29 PM CDT) Pathologist [facility] Microscopy Normal 10/20/2023 5:07 PM CDT DTL RBC None Seen <3 /hpf 10/20/2023 5:07 PM CDT DTL WBC None Seen /hpf 10/20/2023 5:07 PM CDT DTL Comment: ----REFERENCE VALUE---- <4 ??(Males) <11 (Females) Urine 10/20/2023 4:29 PM CDT 10/20/2023 4:44 PM CDT Orlando Ceja APRN, C.N.P., D.N.P. LAB URINE ORDERABLES Performing Organization Address City/[facility]/ZIP Co de Phone Number [facility] [address] [place] [address] * Bacterial Culture, Aerobic + Susceptibility, Urine (10/20/2023 4:29 PM CDT) Urine Culture No growth after 1 day of incubation. 10/22/2023 7:10 AM CDT DT Urine (Urine, Midstream) 10/20/2023 4:29 PM CDT 10/20/2023 7:46 PM CDT Comment:Specimen Source Site : Urine Ovi Bundy APRN.N.P., D.N.P. LAB MICROBIOLOGY - GENERAL ORDERABLES Performing Organization Address City/[facility]/ZIP Co de Phone Number [facility] [address] [place] [address] * pH, Urine (10/20/2023 4:29 PM CDT) Pathologist [facility] pH, U 5.3 4.5 - 8.0 10/20/2023 5:0 7 PM CDT DT Urine 10/20/2023 4:29 PM CDT 10/20/2023 4:44 PM CDT Orlando Ceja APRN, C.N.P., D.N.P. LAB URINE ORDERABLES Performing Organization Address City/[facility]/ZIP Co de Phone Number [facility] [address] [place] [address], [facility] [address] [place] [address] * Osmolality, Urine (10/20/2023 4:29 PM CDT) Osmolality, U 518 150 - 1150 mOsm/kg 10/20/2023 5:07 PM CDT DT Urine 10/20/2023 4:29 PM CDT 10/20/2023 4:44 PM CDT Orlando Ceja APRN C.N.P., D.N.P. LAB URINE ORDERABLES [facility] [address] [place] [address], [facility] DTL [facility] [address] [place] [address] * Urinalysis, with Microscopic: Urine, Midstream (10/20/2023 4:29 PM CDT) Source Urine, Urine, Midstream 10/20/2023 4:44 PM CDT DTL Color, U Yellow 10/20/2023 4:44 PM CDT DTL Clarity, U Clear 10/20/2023 4:44 PM CDT DTL Protein, U 9 <26 mg/dL 10/20/2023 5:54 PM CDT DTL Protein/Osmol ality 0.17 <0.42 ratio 10/20/2023 5:54 PM CDT DTL Predicted 24 HR Protein, U 178 <229 mg/24 h 10/20/2023 5:54 PM CDT DTL Predicted Range 56-560 mg/24 h 10/20/2023 5:54 PM CDT DTL Urine (Urine, Midstream) 10/20/2023 4:29 PM CDT 10/20/2023 4:44 PM CDT Orlando Ceja APRN, C.N.P., D.N.P. LAB URINE ORDERABLES Performing Organization Address City/State/[facility] Co de Phone Number [facility] [address] [place] [address], [facility] [address] [place] [address] * DX Chest AP or PA and Lateral 2 Views (10/20/2023 3:23 PM CDT) Anatomical Region Laterality Modality Chest, Thoracic RST LOS, Tho racic ARZ LOS, Thoracic FLA LOS N/A Digital Radiography Impressions 10/20/2023 3:33 PM CDT Compared with 04/24/2023. Left lower lobe pneumonia is new. No pleural effusion is present. Heart size is normal. Narrative 10/20/2023 3:33 PM CDT EXAM: ??DX CHEST AP OR PA AND LATERAL 2 VIEWS Procedure Note Uziel Reyes M.D. - 10/20/2023 EXAM: DX CHEST AP OR PA AND LATERAL 2 VIEWS IMPRESSION: Compared with 04/24/2023. Left lower lobe pneumonia is new. No pleuraleffusion is present. Heart size is normal. Ovi Bundy APRN.N.Alin., D.N.P. IMG DIAGNOSTIC IMAGING PROCEDURES * (ABNORMAL) SPSMA Result (10/20/2023 3:16 PM CDT) Neutrophilic Segs and Bands 83(H) 50 - 75 % 10/20/2023 6:46 PM CDT [facility] Lymphocytes 7(L) 18 - 42 % 10/20/2023 6:46 PM CDT [facility] Monocytes 10 2 - 11 % 10/20/2023 6:46 PM CDT [facility] Interpretation See Comment 6:46 PM CDT [facility] Comment: No blast cells are seen. Toxic changes and/or Dohle bodies are present: consider an infectious process. Peripheral blood smear reviewed: no other diagnostic abnormalities are seen. Reviewed by: Alexa 10/20/2023 6:46 PM CDT [facility] Blood (Blood, Venous) 10/20/2023 3:16 PM CDT 10/20/2023 3:31 PM CDT Ovi Bundy APRN.N.P., D.N.P. LAB BLOOD ADD-ON [facility] [address] [place] [address], [facility] [address] [place] [address] * Lactate (10/20/2023 3:08 PM CDT) Lactate, P 2.2 0.5 - 2.2 mmol/L 10/20/2023 4:03 PM CDT DTL Blood (Blood, Venous) 10/20/2023 3:08 PM CDT 10/20/2023 3:46 PM CDT Orlando Ceja APRN, C.N.P., Everardo.N.P. LAB BLOOD NON ADD-ON [facility] [address] [place] [address], [place] DTL [facility] [address] [place] [address] * (ABNORMAL) EXT Magnesium (10/20/2023 10:23 AM CDT) [facility] EXT Magnesium 1.5(L) 1.6 - 2.4 mg/dL SCANNED REPORT 10/20/2023 10:2 3 AM CDT Narrative SCANNED REPORT - 10/22/2023 10:05 AM CDT Source result document attached to Order Number [id number] ([id number]) dated 10/20/2023. External results verified in Extract by Kaity Fenton on 10/22/2023 at 10:02 AM. Ordering Provider External [facility] VICKIE Mcgee ADD-ON Performing Organization Address [facility] Co de Phone Number SCANNED REPORT * (ABNORMAL) EXT Creatinine with Estimated GFR (10/20/2023 10:23 AM CDT) [facility] EXT Estimated GFR (eGFR) 77(L) >90 mL/min SCANNED REPORT 10/20/2023 10:2 3 AM CDT Narrative SCANNED REPORT - 10/22/2023 10:05 AM CDT External results verified in Extract by Kaity Fenton on 10/22/2023 at 10:02 AM. Ordering Provider External [facility] BLOO D ADD-ON Performing Organization Address City/[facility]/ZIP Co de Phone Number SCANNED REPORT * (ABNORMAL) EXT Complete Metabolic Panel, Blood (10/20/2023 10:23 AM CDT) Pathologist [facility] EXT Sodium 137 136 - 145 mmol/L SCANNED REPORT EXT Potassium 4.4 3.5 - 5.1 mmol/L SCANNED REPORT EXT Chloride 99 98 - 107 mmol/L SCANNED REPORT EXT CO2 26 22 - 29 mmol/L SCANNED REPORT EXT Glucose 104(H) 70 - 99 mg/dL SCANNED REPORT EXT BUN (Blood Urea Nitrogen) 21 8 - 23 mg/dL SCANNED REPORT EXT Creatinine 1.09 0.70 - 1.20 mg/dL SCANNED REPORT EXT Albumin 4.1 4.0 - 4.9 g/dL SCANNED REPORT EXT Total Protein 7.3 6.0 - 8.0 g/dL SCANNED REPORT EXT Bilirubin, Total 1.4(H) 0.0 - 1.2 mg/dL SCANNED REPORT EXT Alkaline Phosphatase 110 40 - 129 IU/L SCANNED REPORT EXT ALT 47 10 - 50 IU/L SCANNED REPORT EXT AST 45 10 - 50 IU/L SCANNED REPORT 10/20/2023 10:2 3 AM CDT Narrative SCANNED REPORT - 10/22/2023 10:05 AM CDT Source result document attached to Order Number [id number] ([id number]) dated 10/20/2023. External results verified in Extract by Kaity Fenton on 10/22/2023 at 10:02 AM. Ordering Provider External [facility] VICKIE D NON ADD-ON SCANNED REPORT * (ABNORMAL) EXT Complete Blood Count, Blood (10/20/2023 10:23 AM CDT) [facility] EXT Leukocytes 41.0(H) 4.5 - 11.0 thou/cu mm SCANNED REPORT EXT RBC 5.02 4.30 - 5.90 MIL/cumm SCANNED REPORT EXT Hemoglobin 16.1 13.5 - 17.5 g/dL SCANNED REPORT EXT Hematocrit 46.9 37.0 - 53.0 % SCANNED REPORT EXT MCV 93 80 - 100 fL SCANNED REPORT EXT RDW 14.5 11.5 - 15.5 % SCANNED REPORT EXT Platelet Count 258 140 - 440 thou/cu mm SCANNED REPORT EXT Neutrophils 34.4(H) 7 - 7.0 thou/cu mm SCANNED REPORT EXT Lymphocytes 4.5(H) 0.9 - 2.9 thou/cumm SCANNED REPORT EXT Monocytes 2.1(H) <0.9 thou/cumm SCANNED REPORT EXT Eosinophils 0.0 <0.5 thou/cumm SCANNED REPORT EXT Basophils 0.0 <0.3 thou/cu mm SCANNED REPORT 10/20/2023 10:2 3 AM CDT Narrative SCANNED REPORT - 10/22/2023 9:49 AM CDT External results verified in Extract by Kaity Fenton on 10/22/2023 at 09:47 AM. Ordering Provider External M.D. LAB BLOO D NON ADD-ON SCANNED REPORT * BMD Bone Density Spine Hips (03/24/2023 12:36 PM CDT) Anatomical Region Laterality Modality Hip, Lumbar Spine, Nuclear M edicine RST LOS, Musculoskeletal ARZ LOS, Muskuloskeletal FLA LOS N/A Radio graphic Imaging 03/24/2023 12:4 2 PM CDT Impressions 03/24/2023 12:43 PM CDT Low bone density (Osteopenia) AP Spine (region: L1-L2) ?? Narrative 03/24/2023 12:43 PM CDT EXAM: ??BMD BONE DENSITY SPINE HIPS Bone Mineral Density (BMD) analysis performed on [employer] with serial number [id number]. COMPARISON: Serial Comparisons Left Total Hip results: Exam Date ? BMD ? T-score ? 05/24/2019 ?1.003 g/cm2 ?? 0.0 ? 03/05/2020 ? 0.943 g/cm2 ?? -0.5 ? 03/05/2021 ? 0.907 g/cm2 ?? -0.8 ? 03/18/2022 ?0.897 g/cm2 ?? -0.9 ? 03/24/2023 ?0.919 g/cm2 ?? -0.7 ? Change vs. Previous (difference): 0.022 g/cm2 Change vs. Previous (%): 2.5 % The absolute BMD change from previous, 0.022 g/cm2, is greater than least significant change: No The absolute BMD change from baseline, -0.084 g/cm2, is greater than least significant change: Yes Right Total Hip results: Exam Date ? BMD ? T-score ? 05/24/2019 ?1.018 g/cm2 ?? 0.1 ? 03/05/2020 ? 0.956 g/cm2 ?? -0.4 ? 03/05/2021 ? 0.921 g/cm2 ?? -0.7 ? 03/18/2022 ?0.916 g/cm2 ?? -0.7 ? 03/24/2023 ?0.941 g/cm2 ?? -0.5 ? Change vs. Previous (difference): 0.025 g/cm2 Change vs. Previous (%): 2.7 % The absolute BMD change from previous, 0.025 g/cm2, is greater than least significant change: No The absolute BMD change from baseline, -0.077 g/cm2, is greater than least significant change: Yes Combined Total Hip results: Exam Date ? BMD ? T-score ? 05/24/2019 ?1.010 g/cm2 ?? 0.0 ? 03/05/2020 ? 0.949 g/cm2 ?? -0.5 ? 03/05/2021 ? 0.914 g/cm2 ?? -0.7 ? 03/18/2022 ?0.907 g/cm2 ?? -0.8 ? 03/24/2023 ?0.930 g/cm2 ?? -0.6 ? Change vs. Previous (difference): 0.023 g/cm2 Change vs. Previous (%): 2.5 % The absolute BMD change from previous, 0.023 g/cm2, is greater than least significant change: No The absolute BMD change from baseline, -0.080 g/cm2, is greater than least significant change: Yes Spine results: Exam Date ? BMD ? T-score ? 05/24/2019 ?0.912 g/cm2 ?? -2.2 ? 03/05/2020 ? 0.870 g/cm2 ?? -2.5 ? 03/05/2021 ? 0.905 g/cm2 ?? -2.2 ? 03/18/2022 ?0.978 g/cm2 ?? -1.6 ? 03/24/2023 ?0.998 g/cm2 ?? -1.5 ? Change vs. Previous (difference): 0.020 g/cm2 Change vs. Previous (%): 2.0 % The absolute BMD change from previous, 0.020 g/cm2, is greater than the least significant change: No The absolute BMD change from baseline, 0.086 g/cm2, is greater than the least significant change: Yes ----- FINDINGS: Left Hip: Femur Neck: BMD = 0.855 g/cm2 T-score = -1.3 ?Z-score = -0.7 Total Hip: BMD = 0.919 g/cm2 T-score = -0.7 ?Z-score = -0.8 Right Hip: Femur Neck: BMD = 0.904 g/cm2 T-score = -1.0 ?? Z-score = -0.3 Total Hip: BMD = 0.941 g/cm2 T-score = -0.5 ?Z-score = -0.6 Lumbar Spine: L1: BMD = 0.940 g/cm2 L2: BMD = 1.056 g/cm2 L3: BMD = 1.126 g/cm2 L4: BMD = 1.151 g/cm2 Total Lumbar Spine (L1-L2): BMD = 0.998 g/cm2 T-score = -1.5 ?Z-score = -1.4 Trabecular Bone Score: L1-L2: TBS = 1.341 < 1.23: low 1.23 -1.31: borderline ?? > 1.31: normal ?? A low TBS has been associated with increased risk of fractures in certain populations. TBS should not be used alone to determine treatment recommendations. It can be used in conjunction with BMD and FRAX to inform management. Please note: A more comprehensive DXA report, including images and graphs, is available in [employer]. In the absence of other causes of low BMD or demonstrated skeletal fragility, osteoporosis may be diagnosed in post-menopausal women and men at or above age 50 when the T-score is at or below -2.5 as defined by the WHO. Low bone density is present at T-scores between -1 and - 2.5. The diagnosis in pre-menopausal women and men < age 50 can be based on low bone density or evidence of skeletal fragility in the appropriate clinical setting. Based on the bone density results, and on the patient's answers to the Fracture Risk Assessment questionnaire (please refer to appropriate image stored in the BMD study in [employer]), the calculated ten year probability of fracture is: FRAX Risk Factors: None FRAX (10 yr probability) adjusted for TBS: Major Osteoporotic Fracture: ??6.5 % Hip Fracture: ?0.8 % ?? Degenerative changes are present which may spuriously elevate the spine BMD measurement. Today's spine scan was compared with the previous scans using a new region, L1- L2. Procedure Note Almaz Panchal M.D. - 03/24/2023 EXAM: BMD BONE DENSITY SPINE HIPS Bone Mineral Density (BMD) analysis performed on [employer] with serialnumber [id number]. COMPARISON: Serial Comparisons Left Total Hip results: Exam Date BMD T-score 05/24/2019 1.003 g/cm2 0.0 03/05/2020 0.943 g/cm2 -0.5 03/05/2021 0.907 g/cm2 -0.8 03/18/2022 0.897 g/cm2 -0.9 03/24/2023 0.919 g/cm2 -0.7 Change vs. Previous (difference): 0.022 g/cm2 Change vs. Previous (%): 2.5 % The absolute BMD change from previous, 0.022 g/cm2, is greater than least significant change: No The absolute BMD change from baseline, -0.084 g/cm2, is greater than least significant change: Yes Right Total Hip results: Exam Date BMD T-score 05/24/2019 1.018 g/cm2 0.1 03/05/2020 0.956 g/cm2 -0.4 03/05/2021 0.921 g/cm2 -0.7 03/18/2022 0.916 g/cm2 -0.7 03/24/2023 0.941 g/cm2 -0.5 Change vs. Previous (difference): 0.025 g/cm2 Change vs. Previous (%): 2.7 % The absolute BMD change from previous, 0.025 g/cm2, is greater than least significant change: No The absolute BMD change from baseline, -0.077 g/cm2, is greater than least significant change: Yes Combined Total Hip results: Exam Date BMD T-score 05/24/2019 1.010 g/cm2 0.0 03/05/2020 0.949 g/cm2 -0.5 03/05/2021 0.914 g/cm2 -0.7 03/18/2022 0.907 g/cm2 -0.8 03/24/2023 0.930 g/cm2 -0.6 Change vs. Previous (difference): 0.023 g/cm2 Change vs. Previous (%): 2.5 % The absolute BMD change from previous, 0.023 g/cm2, is greater than least significant change: No The absolute BMD change from baseline, -0.080 g/cm2, is greater than least significant change: Yes Spine results: Exam Date BMD T-score 05/24/2019 0.912 g/cm2 -2.2 03/05/2020 0.870 g/cm2 -2.5 03/05/2021 0.905 g/cm2 -2.2 03/18/2022 0.978 g/cm2 -1.6 03/24/2023 0.998 g/cm2 -1.5 Change vs. Previous (difference): 0.020 g/cm2 Change vs. Previous (%): 2.0 % The absolute BMD change from previous, 0.020 g/cm2, is greater than the least significant change: No The absolute BMD change from baseline, 0.086 g/cm2, is greater than the least significant change: Yes ----- FINDINGS: Left Hip: Femur Neck: BMD = 0.855 g/cm2 T-score = -1.3 Z-score = -0.7 Total Hip: BMD = 0.919 g/cm2 T-score = -0.7 Z-score = -0.8 Right Hip: Femur Neck: BMD = 0.904 g/cm2 T-score = -1.0 Z-score = -0.3 Total Hip: BMD = 0.941 g/cm2 T-score = -0.5 Z-score = -0.6 Lumbar Spine: L1: BMD = 0.940 g/cm2 L2: BMD = 1.056 g/cm2 L3: BMD = 1.126 g/cm2 L4: BMD = 1.151 g/cm2 Total Lumbar Spine (L1-L2): BMD = 0.998 g/cm2 T-score = -1.5 Z-score = -1.4 Trabecular Bone Score: L1-L2: TBS = 1.341 < 1.23: low 1.23 -1.31: borderline > 1.31: normal A low TBS has been associated with increased risk of fractures in certainpopulations. TBS should not be used alone to determine treatment recommendations. It can be usedin conjunction with BMD and FRAX to inform management. Please note: A more comprehensive DXA report, including images and graphs,is available in [employer]. In the absence of other causes of low BMD or demonstrated skeletalfragility, osteoporosis may be diagnosed in post-menopausal women and men at or above age 50 when theT-score is at or below -2.5 as defined by the WHO. Low bone density is present at T-scores between -1and - 2.5. The diagnosis in pre-menopausal women and men < age 50 can be based on low bone density orevidence of skeletal fragility in the appropriate clinical setting. Based on the bone density results, and on the patient's answers to theFracture Risk Assessment questionnaire (please refer to appropriate image stored in the BMD studyin QREADS), the calculated ten year probability of fracture is: FRAX Risk Factors: None FRAX (10 yr probability) adjusted for TBS: Major Osteoporotic Fracture: 6.5 % Hip Fracture: 0.8 % Degenerative changes are present which may spuriously elevate the spineBMD measurement. Today's spine scan was compared with the previous scans using a newregion, L1- L2. IMPRESSION: Low bone density (Osteopenia) AP Spine (region: L1-L2) Pearl Magallon APRN, C.N.P., D.N.P . IMG DXA PROCEDURES * Pulmonary Function Tests (03/24/2023 8:51 AM CDT) [facility] FVC 5.36 L 03/24/2023 12:14 PM CDT [place] FEV1 3.90 L 03/24/2023 12:14 PM CDT [place] FEV1/FVC 72.75 % 03/24/2023 12:14 PM CDT [place] DGA90-26% 2.87 L/s 03/24/2023 12:14 PM CDT [place] PEF PRE 9.93 L/s 03/24/2023 12:14 PM CDT [place] PIF PRE 8.38 L/s 03/24/2023 12:14 PM CDT [place] FEF 50 % FIF 50 PRE 36.96 % 03/24/2023 12:14 PM CDT [place] FET PRE 14.96 sec 03/24/2023 12:14 PM CDT [place] DLCO 22.13 ml/(min*mm Hg) 03/24/2023 12:14 PM CDT [place] DLCOc 21.55 ml/(min*mm Hg) 03/24/2023 12:14 PM CDT [place] HB 15.60 g(Hb)/dL 03/24/2023 12:14 PM CDT [place] VA 6.73 L 03/24/2023 12:14 PM CDT [place] PulseRest 74.00 1/min 03/24/2023 12:14 PM CDT [place] Q8ZamUzsr 98.00 % 03/24/2023 12:14 PM CDT [place] PulseExer 89.00 1/min 03/24/2023 12:14 PM CDT [place] EXER TIME 3.00 min 03/24/2023 12:14 PM CDT [place] STEP HEIGHT PRE 9.00 Inch 12:14 PM CDT [place] 03/24/2023 8:51 AM CDT Impressions [place] - 03/24/2023 12:14 PM CDT Normal spirometry and diffusing capacity. Oxygenation is normal at rest and with exercise. Compared to 12/17/2021, spirometry measures have increased. Narrative Procedure Note Garfield Salinas M.B.B.S. - 03/24/2023 IMPRESSION: Normal spirometry and diffusing capacity. Oxygenation is normal at restand with exercise. Compared to 12/17/2021, spirometry measures haveincreased. Pearl Ulloa Wilfredo Magallon APRNN.PAshish, D.N.P . PFT ORDERABLES [facility] [address] * Lipid Panel (03/24/2023 8:15 AM CDT) Triglycerides 118 mg/dL 03/24/2023 9:16 AM CDT [facility] Comment: ----REFERENCE VALUE---- Normal: <150 mg/dL Borderline High: 150-199 mg/dL High: 200-499 mg/dL Very High: > or =500 mg/dL Cholesterol, Total 165 mg/dL 2022 9:16 AM CDT DTL Comment: ----REFERENCE VALUE---- Desirable: < 200 mg/dL Borderline High: 200 - 239 mg/dL High: > or = 240 mg/dL Cholesterol, LDL, Calculated 96 mg/dL 03/24/2023 9:16 AM CDT DTL Comment: ----REFERENCE VALUE---- Desirable: <100 mg/dL Above Desirable: 100-129 mg/dL Borderline High: 130-159 mg/dL High: 160-189 mg/dL Very High: >=190 mg/dL ----ADDITIONAL INFORMATION---- LDL cholesterol calculated using the Thomas/NIH equation. Cholesterol, HDL, S 48 >=40 mg/dL 03/24/2023 9:16 AM CDT [facility]TL Cholesterol, Non-HDL, Calculated 117 mg/dL 03/24/2023 9:16 AM CDT DTL Comment: ----REFERENCE VALUE---- Desirable: <130 mg/dL Above Desirable: 130-159 mg/dL Borderline High: 160-189 mg/dL High: 190-219 mg/dL Very High: > or =220 mg/dL Fasting (8 HR or more) No 03/24/2023 8:48 AM CDT [facility] Blood (Blood, Venous) 03/24/2023 8:15 AM CDT 03/24/2023 8:48 AM CDT Wilfredo Crockett APRNNAlfonso, Everardo.N.P . LAB BLOOD ADD-ON Performing Organization Address [facility] [place] [place] [address] * Thyroid Function [place] (03/24/2023 8:15 AM CDT) TSH, Sensitive 1.5 0.3 - 4.2 mIU/L 03/24/2023 9:16 AM CDT DT Blood (Blood, Venous) 03/24/2023 8:15 AM CDT 03/24/2023 8:48 AM CDT Wilfredo Crockett APRNN.P., D.N.P . LAB BLOOD ADD-ON Performing Organization Address [facility] [place] [place] [address] * PSA (Prostate-Specific Antigen) Screen (03/24/2023 8:15 AM CDT) Prostate-Specific Ag 0.71 <=4.5 ng/mL 03/24/2023 9:16 AM CDT DT Comment: ----ADDITIONAL INFORMATION---- The testing method is an electrochemiluminescence assay manufactured by [employer] and performed on the Modular or FRESS system. Values obtained with different assay methods or kits may be different and cannot be used interchangeably. Test results cannot be interpreted as absolute evidence for the presence or absence of malignant disease. Blood (Blood, Venous) 03/24/2023 8:15 AM CDT 03/24/2023 8:48 AM CDT Pearl Magallon APRN, C.N.P., D.N.P . LAB BLOOD ADD-ON Performing Organization Address City/[facility]/ZIP Co de Phone Number [facility] [address] [place] [address], [facility] DTL [facility] [address] [place] [address] * 25-Hydroxyvitamin D2 and D3 (03/24/2023 8:15 AM CDT) 25-Hydroxy D2 <4.0 ng/mL 03/25/2023 7:45 AM CDT [facility] 25-Hydroxy D3 45 ng/mL 03/25/2023 7:45 AM CDT [facility] 25-Hydroxy D Total 45 ng/mL 2022 7:45 AM CDT [facility] Comment: ----REFERENCE VALUE---- 25-HYDROXY D TOTAL (D2+D3) Optimum levels in the healthy population are 20-50, patients with bone disease may benefit from higher levels within this range. ----ADDITIONAL INFORMATION---- This test was developed and its performance characteristics determined by [facility] in a manner consistent with CLIA requirements. This test has not been cleared or approved by the U.S. Food and Drug Administration. Blood (Blood, Venous) 03/24/2023 8:15 AM CDT 03/24/2023 10:58 AM CDT Pearl Magallon APRN, C.N.P., D.N.P . LAB BLOOD ADD-ON [facility] [address] [place] [address] [facility] [address] [place] [address] [place] [address] * Cologuard-Sent Out Lab (01/03/2022 7:10 AM CDT) Result Negative Negative 01/11/2022 8:35 AM CDT [facility] Comment: NEGATIVE TEST RESULT. A negative Cologuard result indicates a low likelihood that a colorectal cancer (CRC) or advanced adenoma (adenomatous polyps with more advanced pre-malignant features) ??is present. The chance that a person with a negative Cologuard test has a colorectal cancer is less than 1 in 1500 (negative predictive value >99.9%) or has an ??advanced adenoma is less than ??5.3% (negative predictive value 94.7%). These data are based on a prospective cross-sectional study of 10,000 individuals at average risk for colorectal cancer who were screened with both Cologuard and colonoscopy. (Williams Panchal al, N Engl J Med 2014;370(14):8120-4775) The normal value (reference range) for this assay is negative. COLOGUARD RE-SCREENING RECOMMENDATION: Periodic colorectal cancer screening is an important part of preventive healthcare for asymptomatic individuals at average risk for colorectal cancer. ??Following a negative Cologuard result, the [place] [employer] and U.S. Multi-Society Task Force screening guidelines recommend a Cologuard re-screening interval of 3 years. References: [place] [employer] Guideline for Colorectal Cancer Screening: https://www.cancer.org/cancer/yeqbk-qnzoca-qamabd/detection- diagnosis-staging/acs-recommendations.html.; Paolo DK, Keely CR, Eunice LynneK, Colorectal Cancer Screening: Recommendations for Physicians and Patients from the U.S. Multi-Society Task Force on Colorectal Cancer Screening , Am J Gastroenterology 2017; 112:6467-6418. TEST DESCRIPTION: Composite algorithmic analysis of stool DNA-biomarkers with hemoglobin immunoassay. ?? Quantitative values of individual biomarkers are not reportable and are not associated with individual biomarker result reference ranges. Cologuard is intended for colorectal cancer screening of adults of either sex, 45 years or older, who are at average-risk for colorectal cancer (CRC). Cologuard has been approved for use by the U.S. FDA. The performance of Cologuard was established in a cross sectional study of average-risk adults aged 50-84. Cologuard performance in patients ages 45 to 49 years was estimated by sub-group analysis of near-age groups. Colonoscopies performed for a positive result may find as the most clinically significant lesion: colorectal cancer [4.0%], advanced adenoma (including sessile serrated polyps greater than or equal to 1cm diameter) [20%] or non- advanced adenoma [31%]; or no colorectal neoplasia [45%]. These estimates are derived from a prospective cross-sectional screening study of 10,000 individuals at average risk for colorectal cancer who were screened with both Cologuard and colonoscopy. (Williams Panchal al, N Engl J Med 2014;370(14):6002-5280.) Cologuard may produce a false negative or false positive result (no colorectal cancer or precancerous polyp present at colonoscopy follow up). A negative Cologuard test result does not guarantee the absence of CRC or advanced adenoma (pre-cancer). The current Cologuard screening interval is every 3 years. ([place] [employer] and U.S. Multi-Society Task Force). Cologuard performance data in a 10,000 patient pivotal study using colonoscopy as the reference method can be accessed at the following location: www.[employer]/results. Additional description of the Cologuard test process, warnings and precautions can be found at www.cologuard.com. Stool (Stool) 01/03/2022 7:1 0 AM CDT 01/04/2022 4:05 PM CDT Sharan Funk, B.Ch. LAB BODY FLU IDS AND STOOLS ORDERABLES Performing Organization Address City/[facility] Co de Phone Number [employer] [address] [place] [address] [facility] [address] [place] [address], [address] [place] [address] * Biometry-Ophthalmology Image Exam (02/22/2021 9:45 AM CDT) 02/22/2021 9:44 AM CDT Narrative [facility] - 02/22/2021 9:53 AM CDT This order has been created and auto-finalized to support the import of images acquired without order. The clinical documentation to support these images can be found on the encounter that produced images. Provider Not In System IMG NON RAD IMAGI NG PROCEDURES Performing Organization Address City/[facility] Co de Phone Number [facility] NA * (ABNORMAL) Electrophoresis, Protein (01/18/2019 9:48 AM CDT) Total Protein, S 6.2(L) 6.3 - 7.9 g/dL 01/18/2019 2:18 PM CDT Albumin 3.6 3.4 - 4.7 g/dL 01/19/2019 12:06 PM CDT Alpha-1 Globulin 0.3 0.1 - 0.3 g/dL 01/19/2019 12:06 PM CDT Alpha-2 Globulin 0.6 0.6 - 1.0 g/dL 01/19/2019 12:06 PM CDT Beta-Globulin 0.9 0.7 - 1.2 g/dL 01/19/2019 12:06 PM CDT Gamma-Globulin 0.8 0.6 - 1.6 g/dL 01/19/2019 12:06 PM CDT A/G Ratio 1.42 01/19/2019 12:06 PM CDT Impression No apparent monoclonal protein on serum electrophoresi s. 01/19/2019 12:06 PM CDT Blood (Blood, Venous) 01/18/2019 9:48 AM CDT 01/18/2019 1:24 PM CDT Sharan Funk BAshishCh. LAB BLOOD AD D-ON [facility] [address] [place] [address] * [facility] Tissue Donor Screen Test Set (01/18/2019 9:47 AM CDT) HBsAg Screen Donor Non-reactiv e 01/21/2019 3:32 PM CDT HBc Total Ab Donor Non-reactiv e 01/21/2019 3:32 PM CDT HBV [facility] Individual Donor Non-reactiv e 01/21/2019 3:32 PM CDT HCV [facility] Individual Donor Non-reactiv e 01/21/2019 3:32 PM CDT HIV-1 [facility] Individual Donor Non-reactiv e 01/21/2019 3:32 PM CDT HCV Ab Screen Donor Non-reactiv e 01/21/2019 3:32 PM CDT HIV-1/-2 Plus O Ab Screen Donor Non-reactiv e 01/21/2019 3:32 PM CDT HTLV-I/-II Ab Screen Donor Non-reactiv e 01/21/2019 3:32 PM CDT T. cruzi Total Ab Donor Non-reactiv e 01/21/2019 3:32 PM CDT Syphilis Ab Screen Donor Non-reactiv e 01/21/2019 3:32 PM CDT Comment: This test is done by the Microhemagglutination assay- Treponema pallidum (MHA-TP) method. CMV Total Ab Donor Positive 2018 3:32 PM CDT West Nile Virus [facility] Donor Non-reactiv e 01/21/2019 3:32 PM CDT Comment: Failure to detect WNV RNA does not rule out the possibility of West Nile virus infection. This result should be evaluated in the context of the individual's risk factors and clinical findings. Blood (Blood, Venous) 01/18/2019 9:47 AM CDT 01/18/2019 10:39 AM CDT [facility] DONOR TESTING AND [facility] - 01/21/2019 3:32 PM CDT Specimen Information: Specimen ID: [id number] Specimen Type: Blood Specimen Collection Start Date: 01/18/2019 ??9:47 AM Specimen Received Date: 01/18/2019 10:39 AM Specimen ID: [id number] Specimen Type: Blood Specimen Collection Start Date: 01/18/2019 ??9:47 AM Specimen Received Date: 01/18/2019 10:39 AM Specimen ID: [id number] Specimen Type: Blood Specimen Collection Start Date: 01/18/2019 ??9:47 AM Specimen Received Date: 01/18/2019 10:39 AM Specimen ID: [id number] Specimen Type: Blood Specimen Collection Start Date: 01/18/2019 ??9:48 AM Specimen Received Date: 01/18/2019 10:39 AM Sharan Funk B.Ch. LAB BLOOD NO N ADD-ON [facility] DONOR TESTING AND [facility] [address] from Last 3 Months or Most Recently Relevant to Health Maintenance Advance Directives For more information, please contact: [phone] Documents on File Type Date Recorded Patient Software Development Specialist Expl anation Advance Directives 12/14/2018 7:10 AM POA for health care * Full Code (Latest Code Status on File) Date Activated Date Inactivated Comments 10/20/2023 2:46 PM 10/22/2023 6:00 PM Question Answer Comments Full Code: Discussed * Full Code Date Activated Date Inactivated Comments 04/24/2023 9:14 AM 04/27/2023 2:09 PM Question Answer Comments Full Code: Discussed * Full Code Date Activated Date Inactivated Comments 03/13/2019 10:34 AM 03/24/2019 6:22 PM Question Answer Comments Full Code: Discussed * Full Code Date Activated Date Inactivated Comments 02/23/2019 5:47 PM 03/01/2019 6:53 PM Question Answer Comments Full Code: Discussed Healthcare Agents on File Name Relationship Healthcare Agent Relationship Communication Hali Martinez Spouse Health Care Agent Richard Martinez Son First Alternate Health Care Agent Care Teams Planner Internship Relationship Specialty Start Date End Date Elsewhere, Pcp PCP - General Family Medicine 03/01/20
--- OUTSIDE RECORDS SUMMARY | 2023-10-24 05:24 | XMS_ITS | Encounter Summary ---
Author Organization [facility] Address [address] [place] [address] Care Team Providers Care Enterprise Infrastructure Architect Name Role Phone Elsewhere, Pcp Primary Care Provider Unavailabl e Encounter Details Date Type Department Care Team (Late st Contact Info) Description 10/20/2023 [facility] [place], [place] [address] [place] [address] External, Ordering ProviderCortney Social History Tobacco Use Types Packs/Day Years Used Date Smoking Tobacco: Never Smokeless Tobacco: Never Alcohol Use Standard Drinks/Week Comments Yes 1 (1 standard drink = 0.6 oz pur e alcohol) [facility] Utilities Answer Date Recorded In the past 12 months has e electric, gas, oil, or water company threatened to shut off services in your [...] often do you attend chur ch or oriental orthodox services? More than 4 times per year 06/21/2022 Do you belong to any clubs o r organizations such as jewish groups, unions, fraternal or athletic groups, or [...] Answer Date Recorded PHQ-2 Score 0 04/12/2023 [facility] - Occupational [...] your living situation today? I have a [facility] place to live 10/20/2023 Education Answer Date Recorded What is the highest level of school you have completed or the highest degree you have received? Bachelor's degree (e.g., BA, AB, BS) 11/26/2018 Sex and Gender Information Value Date Recorded Sex Assigned at Male 02/17/2021 8:06 PM CDT Gender Identity Male 05/26/2019 9:19 AM RISK CONSULTANT Sexual Orientation Straight 05/26/2019 9: 19 AM RISK CONSULTANT documented as of this encounter Plan of Treatment Upcoming Encounters Date Type Department Care Team (Late st Contact Info) Description 10/30/2023 2:00 PM CDT [facility]medicine [facility] [place], [place] [address] [place] [address] Magali Rutherford, KERI, C.N.P., D.N.P. [address] [place] [address] documented as of this encounter Procedures Procedure Name Priority Date/Time Associated Diagnosis Comments EXTM MAGNESIUM, S Routine 10/20/2023 10: 23 AM CDT EXTM CREATININE WITH EGFR, S/P Routine 10/20/2023 10:23 AM CDT EXTP COMPLETE METABOLIC PANEL, BLOOD Routine 10/20/2023 10:23 AM CDT documented in this encounter Results * (ABNORMAL) EXT Magnesium (10/20/2023 10:23 AM CDT) [facility] EXT Magnesium 1.5(L) 1.6 - 2.4 mg/dL SCANNED REPORT 10/20/2023 10:2 3 AM CDT Narrative SCANNED REPORT - 10/22/2023 10:05 AM CDT Source result document attached to Order Number [id number] ([id number]) dated 10/20/2023. External results verified in Extract by Kaity Fenton on 10/22/2023 at 10:02 AM. Ordering Provider External Cortney [facility] BLOO D ADD-ON SCANNED REPORT * (ABNORMAL) EXT Complete Metabolic Panel, Blood (10/20/2023 10:23 AM CDT) [facility] EXT Sodium 137 136 - 145 [...] Source result document attached to Order Number [id number] ([id number]) dated 10/20/2023. External results verified in Extract by Kaity Fenton on 10/22/2023 at 10:02 AM. Ordering Provider External Cortney [facility] BLOO Everardo NON ADD-ON SCANNED REPORT * (ABNORMAL) EXT Creatinine with Estimated GFR (10/20/2023 10:23 AM CDT) EXT Estimated GFR (eGFR) 77(L) >90 mL/min SCANNED REPORT 10/20/2023 10:2 3 AM CDT Narrative SCANNED REPORT - 10/22/2023 10:05 AM CDT External results verified in Extract by Kaity Fenton on 10/22/2023 at 10:02 AM. Ordering Provider Brenda Mcgee ADD-ON SCANNED REPORT documented in this encounter Visit Diagnoses Not on filedocumented in this encounter Additional Health Concerns Infection Onset Date Last Indicated Resolved Time COVID19 Pending 10/20/2023 10/20/2023 10/20/2023 9 :05 PM CDT Assessment Noted Time PHQ-9 Depression Total Score: 0 11/27/19 19 2:54 PM CDT documented as of this encounter Care Teams Enterprise Infrastructure Architect Relationship Specialty Start Date End Date Elsewhere, Pcp PCP - General Family Medicine 03/01/20 documented as of this encounter
--- OUTSIDE RECORDS SUMMARY | 2023-10-24 05:24 | XMS_ITS | Encounter Summary ---
Author Organization [facility] Address [address] [place] [address] Care Team Providers Care Family And Consumer Education Teacher Name Role Phone Elsewhere, Pcp Primary Care Provider Unavailabl e Encounter Details Date Type Department Care Team (Late st Contact Info) Description 10/20/2023 [facility] [place], [place] [address] [place] [address] External, Ordering ProviderCortney Social History Tobacco Use Types Packs/Day Years Used Date Smoking Tobacco: Never Smokeless Tobacco: Never Alcohol Use Standard Drinks/Week Comments Yes 1 (1 standard drink = 0.6 oz pur e alcohol) [facility] Utilities Answer Date Recorded In the past [...] often do you attend chur ch or judaism services? More than 4 times per year 06/21/2022 Do you belong to any clubs o r organizations such as muslim groups, unions, fraternal or athletic groups, or [...] Answer Date Recorded PHQ-2 Score 0 04/12/2023 [facility] Occupat ional Health - Occupational Stress [...] your living situation today? I have a [facility] place to live 10/20/2023 Education Answer Date Recorded What is the highest level of school you have completed or the highest degree you have received? Bachelor's degree (e.g., BA, AB, BS) 11/26/2018 Sex and Gender Information Value Date Recorded Sex Assigned at Male 02/17/2021 8:06 PM CDT Gender Identity Male 05/26/2019 9:19 AM DESK OPERATOR Sexual Orientation Straight 05/26/2019 9: 19 AM DESK OPERATOR documented as of this encounter Plan of Treatment Upcoming Encounters Date Type Department Care Team (Late st Contact Info) Description 10/30/2023 2:00 PM CDT [facility]medicine [facility] [place], [place] [address] [place] [address] Magali Rutherford, PLATE DRILLER, C.N.P., D.N.P. [address] [place] [address] documented as of this encounter Procedures Procedure Name Priority Date/Time Associated Diagnosis Comments EXTP COMPLETE BLOOD COUNT, BLOOD Routine 10/20/2023 10:23 AM CDT documented in this encounter Results * (ABNORMAL) EXT Complete Blood Count, Blood (10/20/2023 10:23 AM CDT) EXT Leukocytes 41.0(H) 4.5 - 11.0 thou/cu [...] 10/22/2023 at 09:47 AM. Ordering Provider External Cortney [facility] VICKIE Mcgee NON ADD-ON SCANNED REPORT documented in this encounter Visit Diagnoses Not on filedocumented in this encounter Additional Health Concerns Infection Onset Date Last Indicated Resolved Time COVID19 Pending 10/20/2023 10/20/2023 10/20/2023 9 :05 PM CDT Assessment Noted Time PHQ-9 Depression Total Score: 0 11/27/19 19 2:54 PM CDT documented as of this encounter Care Teams Family And Consumer Education Teacher Relationship Specialty Start Date End Date Elsewhere, Pcp PCP - General Family Medicine 03/01/20 documented as of this encounter
--- OUTSIDE RECORDS SUMMARY | 2023-10-24 05:24 | XMS_ITS | Encounter Summary ---
Author Organization [facility] Address [address] [place] [address] Care Team Providers Care Vp Of Technology Name Role Phone Elsewhere, Pcp Primary Care Provider Unavailabl e Reason for Visit * Reason Onset Date Comments Phone Contact 10/20/2023 Encounter Details Date Type Department Care Team (Latest Contact Info) Description 10/20/2023 Clinical Communication Sharan Handy [facility] in [place], [place] [address] [place] [address] Sharan Champion M.B., B.Ch. [address] [place] [address] Phone Contact Social History Tobacco Use Types Packs/Day Years Used Date Smoking Tobacco: Never Smokeless Tobacco: Never Alcohol Use Standard Drinks/Week Comments Yes 1 (1 standard drink = 0.6 oz pur e alcohol) [facility] Utilities Answer Date Recorded In the past 12 months has e [employer], gas, oil, or water [employer] threatened to shut off services in your [...] often do you attend chur ch or zoroastrian services? More than 4 times per year 06/21/2022 Do you belong to any clubs o r organizations such as synagogue groups, unions, fraternal or athletic groups, or [...] Answer Date Recorded PHQ-2 Score 0 04/12/2023 [facility] Occupat ional Health [...] your living situation today? I have a [facility] place to live 10/20/2023 Education Answer Date Recorded What is the highest level of school you have completed or the highest degree you have received? 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 [address] [place] [address] documented as of this encounter Visit Diagnoses Not on filedocumented in this encounter Additional Health Concerns Infection Onset Date Last Indicated Resolved Time COVID19 Pending 10/20/2023 10/20/2023 10/20/2023 9 :05 PM CDT Assessment Noted Time PHQ-9 Depression Total Score: 0 11/27/19 19 2:54 PM CDT documented as of this encounter Care Teams Vp Of Technology Relationship Specialty Start Date End Date Elsewhere, Pcp PCP - General Family Medicine 03/01/20 documented as of this encounter
--- OUTSIDE RECORDS SUMMARY | 2023-10-24 05:24 | XMS_ITS ---
Author Organization [facility] Address [address] [place] [address] Care Team Providers Care Contact Center Specialist Name Role Phone Unavailable Unavailable Unavailable Surgery Details Not on file Complications Check Surgery Details section. Procedure Estimated Blood Loss Check Surgery Details section. Procedure Findings Check Surgery Details section. Procedure Specimens Taken Check Surgery Details section.
--- OUTSIDE RECORDS SUMMARY | 2023-10-24 05:24 | XMS_ITS | Encounter Summary ---
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 [address] [place] [address] [phone] [facility] Referral ID Status Reason Start Date Expiration Date V isits Requested Visits Authorized [id number] Authorized 10/22/2023 04/22/2025 1 1 Scheduling Instructions Please schedule with BMT MD for 30 min Reason for Visit * Reason Onset Date Comments Post Hospital Follow-up 10/22/2023 Encounter Details Date Type Department Care Team (Latest Contact Info) Description 10/22/[address] [facility], [facility], Ninth Floor [address] [place] [phone] Magali Rutherford APRN, C.N.P., D.N.P. [address] [place] [phone] Post Hospital Follow-up Social History Tobacco Use Types Packs/Day Years Used Date Smoking Tobacco: Never Smokeless Tobacco: Never Alcohol Use Standard Drinks/Week Comments Yes 1 (1 standard drink = 0.6 oz pur e alcohol) [facility] Utilities Answer Date Recorded In the past 12 months has th e electric, gas, oil, or water company [...] often do you attend chur ch or quaker services? More than 4 times per year 06/21/2022 Do you belong to any clubs o r organizations such as anabaptist groups, unions, fraternal or athletic groups, or [...] Answer Date Recorded PHQ-2 Score 0 04/12/2023 [facility] ional [facility] - Occupational Stress Questionnaire Answer Date Recorded [...] money to buy more. Never true 10/20/19 Within the past 12 months, t he [...] your living situation today? I have a [facility] place to live 10/20/2023 Education Answer Date Recorded What is the highest level of school you have completed or the highest degree you have received? 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 [address] [place] [address] Scheduled Referrals Name Type Priority Associated Diagnoses Order Schedule Transplant Bone marrow office visit (clinic) Outpatient Referral Routine Transplant Stem Cell (HCC) Transplant Bone Marrow Allogeneic (HCC) Expected: 10/22/2023 (Approximate), Expires: 01/21/2025 documented as of this encounter Visit Diagnoses Diagnosis Transplant Stem Cell (HCC)- Primary Transplant Bone Marrow Allogeneic (HCC) documented in this encounter Additional Health Concerns Assessment Noted Time PHQ-9 Depression Total Score: 0 11/27/19 19 2:54 PM CDT documented as of this encounter Care Teams Director Of Counterintelligence Relationship Specialty Start Date End Date Elsewhere, Pcp PCP - General Family Medicine 03/01/20 documented as of this encounter
--- OUTSIDE RECORDS SUMMARY | 2023-10-24 05:24 | XMS_ITS | Encounter Summary ---
Author Organization [facility] Address [address] [place] [address] Care Team Providers Care Industrial Arts Teacher Name Role Phone Elsewhere, Pcp Primary Care Provider Unavailabl e Encounter Details Date Type Department Care Team (Latest Contact Info) Description 10/20/2023 Intake [facility] Social History Tobacco Use Types Packs/Day Years Used Date Smoking Tobacco: Never Smokeless Tobacco: Never Alcohol Use Standard Drinks/Week Comments Yes 1 (1 standard drink = 0.6 oz pur e alcohol) [facility] Utilities Answer Date Recorded In the [...] often do you attend chur ch or jehovah's witness services? More than 4 times per year 06/21/2022 Do you belong to any clubs o r organizations such as zoroastrianism groups, unions, fraternal or athletic groups, or [...] Answer Date Recorded PHQ-2 Score 0 04/12/2023 [facility] of Occupat ional Health - Occupational Stress [...] medical appointments or from getting medications? No 05/2 06/2023 In the past 12 months, has l [...] your living situation today? I have a [facility] place to live 10/20/2023 Education Answer Date Recorded What is the highest level of school you have completed or the highest degree you have received? 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 [address] [place] [address] documented as of this encounter Visit Diagnoses Not on filedocumented in this encounter Additional Health Concerns Infection Onset Date Last Indicated Resolved Time COVID19 Pending 10/20/2023 10/20/2023 10/20/2023 9 :05 PM CDT Assessment Noted Time PHQ-9 Depression Total Score: 0 11/27/19 19 2:54 PM CDT documented as of this encounter Care Teams Industrial Arts Teacher Relationship Specialty Start Date End Date Elsewhere, Pcp PCP - General Family Medicine 03/01/20 documented as of this encounter
--- OUTSIDE RECORDS SUMMARY | 2023-10-24 05:24 | XMS_ITS | Encounter Summary ---
Author Organization [facility] Address [address] [place] [id number] Care Team Providers Care Aquatics Instructor Name Role Phone Elsewhere, Pcp Primary Care Provider Unavailabl e Reason for Visit * Auth/Cert (Routine) Specialty Diagnoses / Procedures Referred By Contac t Referred To Contact Diagnoses Fever Of Unknown Origin Fever Procedures DIR Referral ID Status Reason Start Date Expiration Date Visits Re quested Visits Authorized [id number] 1 1 Encounter Details Date Type Department Care Team (Latest Contact Info) Description 10/20/2023 2:42 PM CDT - 10/22/2023 3:45 PM CDT Hospital Encounter [facility], Ninth Floor [address] [place] [address] Amaya Reina, BOW STAPLER, C.N.P., D.N.P. [address] [place] [address] [phone] Nahid Francisco M.D. [address] [place] [address] [phone] Dmitry Pierce M.D., Ph.D. [address] [place] [phone] Dysphagia [R13.10] (Primary Dx) Discharge Disposition: Home or Self Care Social History Tobacco Use Types Packs/Day Years Used Date Smoking Tobacco: Never Smokeless Tobacco: Never Alcohol Use Standard Drinks/Week Comments Yes 1 (1 standard drink = 0.6 oz pur e alcohol) [facility] Utilities Answer Date Recorded In the [...] often do you attend chur ch or baptist services? More than 4 times per year 06/21/2022 Do you belong to any clubs o r organizations such as jehovah's witness groups, unions, fraternal or athletic groups, or [...] Answer Date Recorded PHQ-2 Score 0 04/12/2023 [facility] - Occupational Stress Questionnaire Answer Date Recorded [...] CDT Gender Identity Male 05/26/2019 9:19 AM [place] Sexual Orientation Straight 05/26/2019 9: 19 AM [place] documented as of this encounter Last Filed Vital Signs Vital Sign Reading [...] Mass Index 25.24 10/20/2023 2:55 PM CDT documented in this encounter Discharge Summaries * Magali Rutherford APRN, C.N.P., D.N.P. - 10/22/2023 11:41 AM CDT DISCHARGE SUMMARY BRIEF OVERVIEW Hospital: [facility] Discharge Provider: Nahid Francsico M.D. 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 TEST RESULTS PENDING AT DISCHARGE Pending Labs Order Current Status Aspergillus Ag In process Aspergillus Ag In process Bacterial Culture, Aerobic + Susceptibility, Respiratory In process Fungal / TB Culture, Special, Blood In process Fungal Culture, Routine In process Legionella Antigen, Urine In process Streptococcus pneumoniae Antigen, Urine In process Bacteria / Cristina Culture, Blood Central Line Lumen #1 Preliminary result Bacteria / Cristina Culture, Blood Central Line Lumen #2 Preliminary result DETAILS OF HOSPITAL STAY REASON FOR ADMISSION Fever Of Unknown Origin HOSPITAL COURSE Mr. 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 He was directly admitted to the inpatient BMT setting for work-up and management of fever, hypotension, and leukocytosis. He was initiated on Cefepime 2 g IV BID.CT revealed left lung consolidations suggestive of community acquired pneumonia. OT evaluated his swallow without concern for aspiration. ID was consulted. Work- up was unrevealing. IV antibiotics were transitioned to Augmentin twice daily to complete 10 days of antibiotics (End of treatment 10/29/23). On day of hospital dismissal he noted new cold sore, which has a prior history of. He was started on Acyclovir 800 mg twice daily for a planned 10 day course. He remained hemodynamically stable and did not require supplemental oxygen. He was deemed medicallystable to dismiss from the inpatient setting on 10/22/23. He will have labs locally next week and has BMT follow-up video visit planned for 10/30/23. CONSULTS ORDERED DURING THIS ADMISSION IP CONSULT TO INFECTIOUS DISEASES IP CONSULT TO CARE MANAGEMENT CONDITION AT DISCHARGE stable Discharge instructions were provided to the patient and caregiver(s). Total time spent in discharge services today: 30 minutes. documented in this encounter Discharge Instructions * Discharge Instructions* Genia Rivear - 10/20/2023 2:49 PM CDT You were discharged from the [facility] Service. Please identify this service name if you call with questions after hospitalization. * Patient Instructions* Nitish Joseph R.N. - 10/22/2023 10:47 AM CDT The Senior LinkAge Line?? is a service of the [place] Board on Aging in partnership with [place]'s Area Agencies on Aging. It is a free service of the [facility] that connects older [place] and their families with the help they need. Call the Senior LinkAge Line?? at: 757.980.4996 M-F, 8am-4:30pm to connect with specialists that are available to assist you with your specific needsor check out their website at [email or web address] * Attachments The following attachments cannot be sent through Care Everywhere. * Amoxicillin/Clavulanate Potassium (By mouth) (Cuban) documented in this encounter Medications at Time of Discharge Medication Sig Dispensed Refills Start Date End Date acyclovir (ZOVIRAX) 400 mg tabletIndications:HSV , non-BAKER BISCUIT Take 2 tablets (800 mg total) by mouth 2 (two) times a day for 10 days Indications: HSV, non-BAKER BISCUIT. 10 day course for presumed HSV lesions. Upon completion begin taking acyclovir 400 mg daily. 40 tablet 10/22/2023 11/01/2023 acyclovir (ZOVIRAX) 400 mg tablet Take 1 tablet (400 mg total) by mouth daily. Begin upon completion of 10 day acyclovir treatment dose. 180 tablet 3 10/22/2023 amoxicillin-pot clavulanate (AUGMENTIN) 875-125 mg per tabletIndications:Res piratory tract infection, community acquired Take 1 tablet by mouth every 12 (twelve) hours for 15 doses Indications: Respiratory tract infection, community acquired. End of treatment (final dose) 10/29/23. 15 tablet 10/22/2023 10/30/2023 documented as of this encounter Progress Notes * Chris Magana, M.T.S. - 10/22/2023 2:22 PM CDT [facility] Spiritual Care Progress Note Patient: Devan Martinez Age:63 y.o. Location: [id number] Reason(s) for encounter: Spiritual Care contact to introduce spiritual care service and assess for potential spiritual care needs. Summary: I was able to meet with Devan Martinez this afternoon. Devan was sitting down on his chair, watching the television and was open to pastoral visit. He did engage well with pediatric surgeon, shared that he came from [facility] with fever, but feeling a lot better and getting discharged this afternoon. Devan did appreciate shared prayers from the pediatric surgeon for his continued healing. Spiritual Assessment Buddhism Identification / Spiritual Practices: Gnosticist and was in touch with his john community. Coping and support: Has a supportive family. 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 Spiritual Care interventions: Introduced the role as member of the interdisciplinary care team and assessed spiritual care needs/concerns of patient and/or family Therapeutic and supportive listening was provided with the aim of allowing patient/family expression of emotions, hopes and worries regarding current medical condition and life stage. Facilitated baptist/spiritual practices (prayer, blessing, sacred texts, baptist item) with theaim to reinforce patient's spiritual wellness and connection with source of sacredness. Spiritual Care outcomes: Patient/family became familiar with the role of spiritual care provider and identified spiritual care needs. Patient/family achieved a sense of spiritual peace. Patient/family expressed feeling comforted by prayer Patient/family was appreciative of spiritual care support. Spiritual Care Plan / Recommendations: Discharge pending; no further spiritual needs anticipated. Chaplains can be contacted by paging [phone] ([place]) or [phone] ([place]). * Nahid Francisco M.D. - 10/22/2023 10:39 AM CDT This is an attestation note. I visited and evaluated the patient and participated in the smith portions of the management. I do agree with the note of Magali Rutherford APRN, C.N.P., D.N.P. I discussed the evaluation and treatment plan with the patient and the BMT team in detail. Devan Martinez is a 63 y.o. male with history of AML who received MRD allogeneic PBSCT on 03/02/2019. He has remained in remission and is off all immunosuppressive medications. He has also completed all his posttransplant immunization. His last chimerism was not July 2022 and showed 100% donor chimerism. He unfortunately was diagnosed with Haemophilus Influenzae in April 2023 for which he required hospital admission and treatment. He unfortunately presented this time with fever, cough,lethargy, hypotension and leukocytosis. CXR showed left lower lobe pneumonia. CT chest also showed new ground-glass and consolidative opacity in the left upper and left lower lobes. He was admitted to the inpatient service on 10/20/23 and started on IV cefepime. He also receive IV hydration. He has been afebrile since admission. He continues to have intermittent cough. No dyspnea. He is feeling better today. He is eating and drinking well. He is ambulating without any difficulty and no lightheadedness. Sputum gram stain showed only increased WBC. Respiratory pathogen panel is negative.Blood cultures are still pending. Other workup including Aspergillus antigen, Histoplasma and Legionella are still pending. He has been evaluated by ID. Plan at this time is to discharge him on oral Augmentin for a total of 10 days. He does have a cold sore and plan is to increase the dose of acyclovir to 800 mg b.i.d. for 10 days. We will follow-up blood cultures from the outside facility. We will plan to discharge him home today and will arrange for outpatient follow-up. * Catina Baltazar D.T.R. - 10/22/2023 10:02 AM CDT Patient was assessed and determined to be nutritionally stable. Clinical nutrition will sign off but will continue to screen per departmental guidelines. Please reconsult for any questions/concerns regarding patient's nutritional status. For questions about patient's nutritional care please contact pager [phone] on weekdays or weekends/holidays. * Veronica Mcclain MPAS, P.A.-C., P.A. - 10/22/2023 7:37 AM CDT Infectious Diseases [facility] Consulting Service Progress Note SUBJECTIVE REASON FOR CONSULT [place]-ID service pager at [phone] is following Devan Martinez for evaluation and management to give further recommendations for evaluation and management of S/p allo sct. Elevated WBC at outside clinic with fever/hypotension. Chest Xray + for LLL pneumonia. Appreciate recommendations.. EVENTS OVER THE PAST 24 HOURS: Mr. Martinez reports feeling better overall. He has remained afebrile and had no acute concerns overnight. He reports the productive cough is persistent. He noted a new oral HSV lesion today. He is currently on prophylactic dosing for acyclovir. He denies chest pain, shortness of breath, nausea, vomiting, diarrhea, and constipation. The plan is to discharge from the hospital today as he is stable and infection is improving. 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 REVIEW OF SYSTEMS A 10-point ROS was performed and negative except as noted in HPI. OBJECTIVE PHYSICAL EXAMINATION I have reviewed the current vital sign data as applicable. HEENT: Normocephalic, atraumatic. EOMI. No scleral icterus. Moist oral mucosa. CV: Regular rate and rhythm. S1 and S2 normal. No murmurs, rubs, or gallops appreciated. No lower extremity edema. Resp: Diminished breath sounds right posterior lung barrow. Course crackles left lower lung barrow.Normal work of breathing on room air. No wheezes. GI: Soft, nondistended. Normoactive bowel sounds. Nontender to palpation. Extremities: Well perfused. No deformities appreciated. Skin: Warm, dry. No visibile rashes. Mental: Alert, oriented. Appropriate with conversation. Neuro: No focal deficits appreciated. DIAGNOSTICS I have reviewed diagnostics. Studies of note include: -Chest X-ray 10/20/23: Compared with 04/24/2023. Left lower lobe pneumonia is new. No pleural effusion is present. Heart size is normal. CT Chest Angiogram 10/20/23: New glass and consolidative opacities in the left upper and lower lobes are likely infectious or inflammatory. Lab work collected 10/20/23: - RPP negative - Blood Cultures peripherally x2 NGTD - Blood Cultures, fungal, pending - Lactate 2.2 mmol/L - Urinalysis: negative - Urine Culture: NGTD - Chest X-ray: Left lower lobe pnuemonia without pleural effusion -Sputum gram stain - Upper respiratory/oral microbiota. White blood cells, Many. 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 S/p HLA-matched allo-SCT (03/2019) B. S/p Induction with 7+3 (10/2018) C. S/p cytarabine consolidation (11/2018) D. Prophylaxis with acyclovir 400 mg daily # History of URI # History of RSV (08/19/2022) A. Received course of Augmentin (07/2022) Mr. Martinez was admitted for left upper and lower lung pneumonia with significant leukocytosis and probable syncopal episode. Additional testing has been performed and results are pending. He is currently stable and infection appears to be improving. We recommend stopping cefepime and starting Augmentin for a 10 day course, including days that he received cefepime (End of treatment excepted 10/29/2023). Additionally, he notes new oral HSV lesions and we recommend increasing acyclovir dose to 800 mg two times daily for ten days, then reduce dose back to 400 mg two times daily. Patient is safefor dismissal from hospital today. We recommend patient wear a mask while working on construction for [employer]. ID will sign off. RECOMMENDATIONS: Please stop Cefepime 2 g q12h IV. Please start Augmentin 875 mg PO twice a day for a total of 10 days antibiotic course (EOT 10/29/2023) . Please increase acyclovir dose to 800 two times daily for 10 days. After completion of 10 day course, reduce acyclovir dose back to 400 mg two times daily. Monitor for fungal/bacterial testing results. ID will sign off. Treatment plan reviewed with Mr. Martinez and his family. They expressed understanding. All questions answered to their satisfaction. Infectious Diseases [facility] Consulting Service Sign Off Note We will sign off at this time. Please page [place]-ID service pager at [phone] with any questions. Infectious Disease Sign Off Note: Primary service: Please consult Care Management for dismissal planning INFECTIOUS DISEASES THERAPY RECOMMENDATIONS Antimicrobial plan: Patient will stay on the following antimicrobials: Augmentin 875 mg PO BID until 10/29/2023, acyclovir 800 mg PO BID for 10 days. Lab monitoring while on antimicrobial therapy: No Should patient be enrolled in OPAT/COPAT program: No Infectious Diseases follow-up: Follow-up: No outpatient follow-up indicated. I personally spent a total 35 minutes in counseling and coordination of care as documented above. Veronica MclcainBARB, Debbie-Ovi., P.A. Associated attestation - Sara Whitt M.B., Joseph.B. - 10/22/2023 10:46 AM CDT I have personally seen and examined the patient. I agree with the documentation of Ms Mcclain dated 10/22/23. Please see that note for detailed recommendations. * Magali Rutherford APRN, C.N.P., D.N.P. - 10/22/2023 6:18 AM CDT SUBJECTIVE INTERVAL HISTORY Mr. Devan Martinez was seen on morning rounds. His supportive Hali is present at his bedside. He reports doing well since yesterday afternoon when I saw him. He is up ambulating without difficulty. Overnight he feels his cough is improved. Denies any new shortness of breath, chest pain,or pressure. Mr. Martinez was seen and evaluated on BMT morning rounds in collaboration with Dr. Francisco BMT Over Short And Damage Clerk, Daron Livingston PharmD, and Genia THOMPSON. REVIEW OF SYSTEMS Constitutional: - Negative for fever and loss of appetite. Skin: - Negative for skin rash. Eyes: - Negative for visual problems. ENT: - Negative for difficulty hearing. Respiratory: Positive for coughing up blood. - Negative for shortness of breath. - Dark red/brown sputum which began yesterday 10/20/23 Cardiovascular: - Negative for chest pain, pressure or tightness, swelling in the legs or feet and rapid or fluttering heart beat. Gastrointestinal: - Negative for constipation, diarrhea, nausea and vomiting. Genitourinary: - Negative for difficulty urinating and pain with urination. Hematologic: - Negative for bruises or bleeds easily. Neurological: Positive for headaches. - Mild headache yesterday afternoon, resolved with tylenol x 1 dose. Denies headache this morning Psychiatric/Behavioral: - Negative for sleep disturbance. OBJECTIVE VITAL SIGNS Temperature: [36.5 ??C-36.8 ??C] 36.5 ??C Resp Rate: [16] 16 Blood Pressure: (100-120)/(63-82) 118/68 SpO2: [95 %-97 %] 96 % Pulse Rate: [65-85] 71 Admission Weight: 86.2 kg Weight: 84.4 kg (10/22/2023 8:09 AM) Height: 182.9 cm (10/20/2023 2:55 PM) INTAKE/OUTPUT I/O last 3 completed shifts: In: 1940 [P.O.:1740] Out: 5250 [Urine:5250] I/O this shift: In: - Out: 950 [Urine:950] PHYSICAL EXAM General: Awake and alert, sitting upright in bed. In no acute distress. HEENT: Normocephalic, atraumatic. Sclera anicteric. Oral mucosa moist without erythema, ulcerations, or lesions. Two lesions to left lower lip. Heart: Regular rate and rhythm. No murmur, rub, or gallop. S1/S2 auscultated. No lower extremity edema. Lungs: Normal respiratory effort on room air. Course crackles throughout posterior left lung barrow, diminished breath sounds right posterior lung barrow. No wheezes. Abdomen: Bowel sounds present. Skin: Warm and dry. No rashes or lesions on exposed skin. Neurologic: No focal deficits. Psych: Calm and pleasant. KPS: 80 % DIAGNOSTICS Recent Results (from the past 24 hour(s)) (1, 3) Cuhe-K-Hofzmx (Fungitell), Serum Collection Time: 10/21/23 1:17 PM Specimen: Blood, Venous Result Value (1, 3) Czgu-Q-Bofxeg, Quantitative <31 (1, 3) Mzat-Q-Tcigjq, Qualitative Negative Gram Stain Collection Time: 10/21/23 1:23 PM Specimen: Sputum Specimen Source Site: Sputum Result Value Gram Stain Upper respiratory/oral microbiota White blood cells, Many Epithelial cells, Moderate Fungal Smear Collection Time: 10/21/23 1:23 PM Specimen: Sputum Specimen Source Site: Sputum Result Value Fungal Smear Negative. Comprehensive Metabolic Panel Collection Time: 10/22/23 3:17 AM Result Value Potassium, S 5.1 Sodium, S 138 Chloride, S 106 Bicarbonate, S 23 Anion Gap 9 BUN (Blood Urea Nitrogen), S 16 Creatinine 0.94 Estimated GFR (eGFR) >90 Calcium, Total, S 8.7 (L) Glucose, S 106 Protein, Total, S 6.3 Albumin, S 3.4 (L) Aspartate Aminotransferase (AST), S CANCELED Alkaline Phosphatase, S 129 Alanine Aminotransferase (ALT), S 44 Bilirubin, Total, S 0.6 CBC no call back, reflex T/S HGB <8 Collection Time: 10/22/23 3:17 AM Result Value Hemoglobin 14.3 Hematocrit 43.0 Erythrocytes 4.55 MCV 94.5 RBC Distrib Width 14.0 Platelet Count 228 Leukocytes 17.8 (H) Neutrophils 12.61 (H) Lymphocytes 3.48 (H) Monocytes 1.41 (H) Eosinophils 0.26 Basophils 0.06 Histoplasma and Blastomyces Antigen, Enzyme Immunoassay, Serum Collection Time: 10/22/23 3:17 AM Specimen: Blood, Venous Result Value Histoplasma/Blastomyces Ag Result Not Detected Histoplasma/Blastomyces Ag Value Not Detected ASSESSMENT / PLAN Plan for Day 10/22/2023 : - Swallow Study to rule out aspiration - Transition from IV to PO antibiotics - Initiated treatment dose Acyclovir # Acute myeloid leukemia trisomy 8, 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 Most recent sort chimerism from 08/19/2022 showed 100% donor DNA in the CD3 and CD33 fraction - 10/20/23 - No blast cells seen. Toxic changes and/or Dohle bodies are present: consider an infectious process. Peripheral blood smear reviewed: no other diagnostic abnormalities are seen. - 10/22/2023 CBC as per above. Leukocytosis continues to downtrend. Hgb and Plt count overall stable. # Fever, resolved # Hypotension, resolved # Leukocytosis, improved # Community Acquired Pneumonia - 10/20/2023: presented to [facility] with fever and hypotension. Noted he felt off but denies confusion at that time. He is not sure of his temperature at [facility] but notes it was 100.2 at home prior to presenting to clinic. - Given 1L of fluid at [facility] and 2g of Ceftriaxone; then transferred to [facility] for admission. - 10/20/23- Blood Cultures peripherally x 2: Pending. Blood Cultures, fungal, Pending. Lactate 2.2 mmol/L. Urinalysis - unrevealing. Urine Culture: Pending. Chest X-ray - Left lower lobe pnuemonia without pleural effusion. Started Cefepime 2 g IV BID - 10/20/2023: Chest CT: New glass and consolidative opacities in the left upper and lower lobes are likely infectious or inflammatory. - Infectious Diseases Consult. Recommendations (10/22/23) - Transition Cefepime 2 g IV BID to Augmentin, planned 10 day antibiotic cours (EOT 10/29/23) -- Obtain strep pneumo urine antigen: Pending -- Obtain sputum bacterial and fungal cultures, gram stain and fungal smear: Remain pending. -- Obtain legionella antigen urine: Pending -- Obtain serum Fungitell antigen: < 31, negative. -- Obtain serum Aspergillus antigen: Pending -- Obtain serum histo/blastomyces antigen: Not detected -- Bedside swallow study completed, no concern for aspiration. # Loss of consciousness suspect vasovagal syncopal episode, 10/20/23 - Neurology service feels episode was consistent with a vasovagal episode and does not require neurology consult at this time. # Hyperbilirubinemia, resolved - Had similar up trend with sepsis event back in April 2023. - 10/22/2023: Bili, t: 0.6 - Continue to monitor # Cold Sores - Treatment dose Acyclovir 800 mg BID x 10 day course. Upon completion resume prophylactic acyclovir 400 mg daily. 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 - Remains off all IMS since 11/08/2021 - Actigall discontinued in April 2023. 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 # Code Status - Full code. Discussed on admission 10/20/2023. # Disposition - Mr. Devan Martinez will dismiss from the inpatient BMT service this afternoon as long as blood cultures remain negative at 48 hours. He will have labs locally and have post hospital BMT follow-up via video visit next week 10/30/23. The above assessment and plan were discussed with Dr. Francisco BMT Over Short And Damage Clerk who was in agreeance with the plan. Electronically signed by: Magali Rutherford APRN, C.N.P., Malik 10/22/23 11:56 AM CDT * Nahid Francisco M.D. - 10/21/2023 12:33 PM CDT This is an attestation note. I visited and evaluated the patient and participated in the smith portions of the management. I do agree with the note of Magali Rutherford APRN, C.N.P., Everardo.N.P. I discussed the evaluation and treatment plan with the patient and the BMT team in detail. Devan Martinez is a 63 y.o. male with history of AML who received MRD allogeneic PBSCT on 03/02/2019. He has remained in remission and is off all immunosuppressive medications. He has also completed all his posttransplant immunization. His last chimerism was not July 2022 and showed 100% donor chimerism. He unfortunately was diagnosed with Haemophilus Influenzae in April 2023 for which he required hospital admission and treatment. He unfortunately presented this time with fever, cough,lethargy, hypotension and leukocytosis. CXR showed left lower lobe pneumonia. CT chest also showed new ground-glass and consolidative opacity in the left upper and left lower lobes. He was admitted to the inpatient service on 10/20/23 and started on IV cefepime. He also receive IV hydration. He is feeling better today. He denies any dyspnea. He is afebrile today. His still does have a cough. He has been evaluated by ID and they have recommended further testing. He will remain on the inpatient service for further testing and management. * Magali Rutherford APRN, C.N.P., D.N.P. - 10/21/2023 6:34 AM CDT SUBJECTIVE INTERVAL HISTORY Admitted to inpatient BMT yesterday afternoon. Remained afebrile, with one episode of hypotension overnight. Did not require any supplemental oxygen. Mr. Devan Martinez was seen on morning rounds. His supportive Hali is present at his bedside. He was awake, sitting in bed. He reports overall feeling quite well this morning. Denies any shortness of breat, chest pain/pressure or palpitations. Continues to have a cough with dark brown sputum which started yesterday. Appetite remains fair. No bleeding concerns. His shares that he is much improved compared to yesterday. Discussed medical management plan and work-up findings thus far. Patient and caregiver questions addressed to the best of my ability. Mr. Martinez was seen and evaluated on BMT morning rounds in collaboration with Dr. Francisco BMT Over Short And Damage Clerk, Daron Livingston PharmD, and Genia THOMPSON. He continues to feel well. Discussed review of vaccine records. Patient and caregiver questions addressed. REVIEW OF SYSTEMS Constitutional: - Negative for fever and loss of appetite. Skin: - Negative for skin rash. Eyes: - Negative for visual problems. ENT: - Negative for difficulty hearing. Respiratory: Positive for coughing up blood. - Negative for shortness of breath. - Dark red/brown sputum which began yesterday 10/20/23 Cardiovascular: - Negative for chest pain, pressure or tightness, swelling in the legs or feet and rapid or fluttering heart beat. Gastrointestinal: - Negative for constipation, diarrhea, nausea and vomiting. Genitourinary: - Negative for difficulty urinating and pain with urination. Hematologic: - Negative for bruises or bleeds easily. Neurological: Positive for headaches. - Mild headache yesterday afternoon, resolved with tylenol x 1 dose. Denies headache this morning Psychiatric/Behavioral: - Negative for sleep disturbance. OBJECTIVE VITAL SIGNS Temperature: [36.3 ??C-36.7 ??C] 36.3 ??C Resp Rate: [16-18] 16 Blood Pressure: (84-128)/(48-72) 107/63 SpO2: [93 %-97 %] 97 % Pulse Rate: [64-95] 65 Admission Weight: 86.2 kg Weight: 86.2 kg (10/20/2023 2:55 PM) Height: 182.9 cm (10/20/2023 2:55 PM) INTAKE/OUTPUT I/O last 3 completed shifts: In: 2640 [P.O.:1390] Out: 5150 [Urine:5150] I/O this shift: In: - Out: 1750 [Urine:1750] PHYSICAL EXAM General: Awake and alert, sitting upright in bed. In no acute distress. HEENT: Normocephalic, atraumatic. Sclera anicteric. Oral mucosa moist without erythema, ulcerations, or lesions. Heart: Regular rate and rhythm. No murmur, rub, or gallop. S1/S2 auscultated. No lower extremity edema. Lungs: Normal respiratory effort on room air. Course crackles throughout posterior left lung barrow, diminished breath sounds right posterior lung barrow. No wheezes. Dry cough upon exam. Abdomen: Bowel sounds present. Skin: Warm and dry. No rashes or lesions on exposed skin. Neurologic: No focal deficits. Psych: Calm and pleasant. KPS: 80 % DIAGNOSTICS Recent Results (from the past 24 hour(s)) Lactate Collection Time: 10/20/23 3:08 PM Result Value Lactate, P 2.2 CBC no call back, reflex T/S HGB <8 Collection Time: 10/20/23 3:08 PM Result Value Hemoglobin 14.7 Hematocrit 43.4 Erythrocytes 4.63 MCV 93.7 RBC Distrib Width 13.9 Platelet Count 235 Leukocytes 43.9 (H) Neutrophils 35.90 (H) Lymphocytes 4.96 (H) Monocytes 2.94 (H) Eosinophils <0.03 Basophils 0.04 SPSMA Result Collection Time: 10/20/23 3:16 PM Result Value Neutrophilic Segs and Bands 83 (H) Lymphocytes 7 (L) Monocytes 10 Interpretation See Comment Reviewed by: Tech Urinalysis, with Microscopic: Urine, Midstream Collection Time: 10/20/23 4:29 PM Result Value Source Urine, Urine, Midstream Color, U Yellow Clarity, U Clear Protein, U 9 Protein/Osmolality 0.17 Predicted 24 HR Protein, U 178 Predicted Range 56-560 pH, Urine Collection Time: 10/20/23 4:29 PM Result Value pH, U 5.3 Microscopic Automated Collection Time: 10/20/23 4:29 PM Result Value Microscopy Normal RBC None Seen WBC None Seen Osmolality, Urine Collection Time: 10/20/23 4:29 PM Result Value Osmolality, U 518 Dipstick, Urine Collection Time: 10/20/23 4:29 PM Result Value Hemoglobin, QL Negative Leukocyte Esterase, U Negative Nitrite, U Negative Ketones, U Negative Glucose, U Negative Respiratory Panel, PCR, Nasopharyngeal Collection Time: 10/20/23 6:38 PM Specimen: Nasopharynx; Swab Result Value Specimen Source NASOPHARYNGEAL SWAB Adenovirus Undetected Coronavirus 229E Undetected Coronavirus HKU1 Undetected Coronavirus NL63 Undetected Coronavirus OC43 Undetected SARS Coronavirus-2 Undetected Human Metapneumovirus Undetected Human Rhinovirus/ Enterovirus Undetected Influenza A Undetected Influenza B Undetected Parainfluenza Virus 1 Undetected Parainfluenza Virus 2 Undetected Parainfluenza Virus 3 Undetected Parainfluenza Virus 4 Undetected Respiratory Syncytial Virus Undetected Bordetella parapertussis Undetected Bordetella pertussis Undetected Chlamydia pneumoniae Undetected Mycoplasma pneumoniae Undetected Interpretation This assay is not predicted to detect SARS-coronavirus (CoV), or MERS-CoV. If SARS-CoV or MERS-CoV is suspected, coordinate testing through a local public health laboratory. CBC with Differential, Blood Collection Time: 10/21/23 3:09 AM Result Value Hemoglobin 14.4 Hematocrit 42.0 Erythrocytes 4.45 MCV 94.4 RBC Distrib Width 14.2 Platelet Count 207 Leukocytes 36.9 (H) Neutrophils 29.59 (H) Lymphocytes 4.64 (H) Monocytes 2.41 (H) Eosinophils 0.13 Basophils 0.12 (H) Comprehensive Metabolic Panel Collection Time: 10/21/23 3:09 AM Result Value Potassium, S 4.6 Sodium, S 139 Chloride, S 106 Bicarbonate, S 25 Anion Gap 8 BUN (Blood Urea Nitrogen), S 16 Creatinine 1.07 Estimated GFR (eGFR) 78 Calcium, Total, S 8.4 (L) Glucose, S 107 Protein, Total, S 5.9 (L) Albumin, S 3.4 (L) Aspartate Aminotransferase (AST), S 44 Alkaline Phosphatase, S 99 Alanine Aminotransferase (ALT), S 55 Bilirubin, Total, S 1.3 (H) Bilirubin, Direct Collection Time: 10/21/23 3:09 AM Result Value Bilirubin, Direct, S 0.4 (H) Results for orders placed or performed during the hospital encounter of 10/20/23 (from the past 72 hour(s)) Respiratory Panel, PCR, Nasopharyngeal Specimen: Nasopharynx; Swab Result Value Specimen Source NASOPHARYNGEAL SWAB Adenovirus Undetected Coronavirus 229E Undetected Coronavirus HKU1 Undetected Coronavirus NL63 Undetected Coronavirus OC43 Undetected SARS Coronavirus-2 Undetected Human Metapneumovirus Undetected Human Rhinovirus/ Enterovirus Undetected Influenza A Undetected Influenza B Undetected Parainfluenza Virus 1 Undetected Parainfluenza Virus 2 Undetected Parainfluenza Virus 3 Undetected Parainfluenza Virus 4 Undetected Respiratory Syncytial Virus Undetected Bordetella parapertussis Undetected Bordetella pertussis Undetected Chlamydia pneumoniae Undetected Mycoplasma pneumoniae Undetected Interpretation This assay is not predicted to detect SARS-coronavirus (CoV), or MERS-CoV. If SARS-CoV or MERS-CoV is suspected, coordinate testing through a local public health laboratory. *Note: Due to a large number of results and/or encounters for the requested time period, some results have not been displayed. A complete set of results can be found in Results Review. ASSESSMENT / PLAN Plan for Day 10/21/2023 : - Obtain additional infectious studies including: urine studies (legionella, strep pneumonia). 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 Most recent sort chimerism from 08/19/2022 showed 100% donor DNA in the CD3 and CD33 fraction - 10/20/23- No blast cells seen. Toxic changes and/or Dohle bodies are present: consider an infectious process. Peripheral blood smear reviewed: no other diagnostic abnormalities are seen. - 10/21/2023 CBC as per above. # Fever, resolved # Hypotension, resolved # Leukocytosis # Community Acquired Pneumonia - 10/20/2023: presented to [facility] with fever and hypotension. Noted he felt off but denies confusion at that time. He is not sure of his temperature at [facility] but notes it was 100.2 at home prior to presenting to clinic. - Given 1L of fluid at [facility] and 2g of Ceftriaxone; then transferred to [facility] for admission. - 10/20/23- Blood Cultures peripherally x 2: Pending. Blood Cultures, fungal, Pending. Lactate 2.2 mmol/L. Urinalysis - unrevealing. Urine Culture: Pending. Chest X-ray - Left lower lobe pnuemonia without pleural effusion. Started Cefepime 2 g IV BID - 10/20/2023: Chest CT: New glass and consolidative opacities in the left upper and lower lobes are likely infectious or inflammatory. - Infectious Diseases Consult. Recommendations (10/21/23) -- Obtain sputum bacterial and fungal cultures (ordered) -- Continue Cefepime 2 g IV BID -- Obtain strep pneumo urine antigen (ordered) -- Obtain legionella antigen urine (ordered) -- Obtain serum Fungitell antigen (ordered) -- Obtain serum Aspergillus antigen (ordered) -- Perform bedside swallow study to rule out potential aspiration risk # Loss of consciousness suspect vasovagal syncopal episode, 10/20/23 - Curbsided neurology given LOC at outside clinic and lab analyst report of rigidity during episode. - Neurology service feels this was more consistent with a vasovagal episode and does not require neurology consult at this time. # Hyperbilirubinemia, mild - Had similar up trend with sepsis event back in April 2023. - 10/21/2023: Bili, t: 1.3 and Bili, D: 0.4. 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 - Remains off all IMS since 11/08/2021 - Actigall discontinued in April 2023. 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 Seen today, 03/24/2023. Shave biopsy performed of the left dorsal DIP. Derm to follow results. # Code Status - Full code. Discussed on admission 10/20/2023. # Disposition - Mr. Devan Martinez will remain admitted for management of the above issues. - Hopefully he can dismiss in the next 24-48 hours based on pending infectious work-up as long as we establish an oral regimen he can complete in the outpatient setting. The above assessment and plan were discussed with Dr. Francisco BMT Over Short And Damage Clerk. Electronically signed by: Magali Rutherford APRN, C.N.P., JeffreyNAlfonso 10/21/23 1:19 PM CDT * Maxine Murphy M.D. - 10/20/2023 5:06 PM CDT MISCELLANEOUS NEUROLOGY CURBSIDE NOTE The Neurology consult service was curbsided about Mr. Devan Martinez and a spell he had today. I did not see the patient. Brief history: Briefly, Mr. Martinez is a 63-year-old male who presented to a local [facility] clinic today with fever and elevated white blood cell count. His medical comorbidities include AML status post allogeneic stem cell transplant on 03/02/2019. Reportedly, he was getting his blood drawn at that clinic when he slumped over in his chair, lost consciousness for about 1-2 minutes. Witnesses said that it appeared his body stiffened. There was notongue biting, loss of bowel/bladder. Reportedly, he returned to his baseline shortly thereafter and vomited. He was found to be hypotensive with blood pressure 90/60 with an elevated white blood cell count of41. On arrival to [facility], he was admitted for fever and hypotension. His primary team reports no abnormalities on his neurologic exam. He told his primary team that this episode today was his only episode of lightheadedness. He had been exposed to a family member with COVID infection over the weekend. Chest CT scan was performed today and shows a new consolidative opacity in the left lung, likely infectious or inflammatory. Mr. Martinez has no prior neurologic history. He does not have recent brain injury or history of seizures. Assessment/plan: #1 Vasovagal syncope #2 Suspected pneumonia #3 Hypotension #4 Fever #5 Leukocytosis #6 History of AML s/p allogeneic stem cell transplant in 2019 Mr. Martinez's spell today is much more consistent with a vasovagal syncopal episode rather than aseizure. In the setting of illness and hypotension, I suspect that he had a vasovagal reaction whengetting his blood drawn. Rigidity of the muscles can occur with syncope, and he did not have any other features suggestive of a seizure, such as bowel/bladder loss of control or tongue biting. Reassuringly, he reportedly returned to his mental baseline quickly within a couple of minutes, which would not be suspected he was postictal. Recommendations: I do not think that he needs further neurologic workup for this spell, and the event can be attributed to a vasovagal syncopal episode. Please contact the Neurology Service if he has any other spellsof concern. Maxine Murphy M.D. 10/20/[address] Herrera. Please contact the Neurology Consults Service at pager [phone] withany questions/concerns. documented in this encounter H&P Notes * Orlando Ceja, KERI, C.N.P., D.N.P. - 10/20/2023 3:21 PM CDT BMT Inpatient H&P Admission date/time: 10/20/2023 2:42 PM SUBJECTIVE TRANSPLANT PHYSICIAN Dr. Sharan Champion, pager [phone]. Devan Martinez is a 63 y.o. male with a past medical history significant for AML who receiveda HCT on 03/02/2019. He is being admitted for fever and hypotension. Currently 03/02/2019 (4 years 7 months). ATC contacted for urgent admission. Oncology History No history exists. Events leading up to admission: Mr. Devan Martinez reports that he began to feel unwell in the pipeline dispatcher hours of 10/20/2023. He checked his temperature and found it to be 100.2. When he woke up for the day he went to the [facility] for evaluation. The BOW STAPLER from [facility] called to report that upon arrival, he was found to be hypotensive in the 90/60's. CBC was obtained which showed a WBC: 41, Hgb: 16.1,and platelets: 258. CMP was pending. Per nurse to nurse report, during the lab draw the patient became unresponsive and slumped over in his chair without hitting his head. echo technician noted rigidity while unresponsive. By the time the OEM SALES MANAGER arrived he was awake, vomiting, and was again able to respond.He tells me his only episode of lightheadedness was during this episode. After discussion with [facility], decision was made that he would be better served at [facility] on the BMT service. Prior to him leaving the clinic, they gave 2 grams Rocephin (what they had available), Zofran and IVF. He was transported to [facility] for further management. Infectious work up was initiated as below. Mr. Devan Martinez reports that he was exposed to a family member over the weekend who was positive for covid past 5 days of infection. Respiratory pathogen panel is pending. REVIEW OF SYSTEMS REVIEW OF SYSTEMS Denies cough, SOB/ROCHE, chest pain or palpitations, dizziness/lightheadedness. No abdominal pain, orconstipation. No edema or rash. No oral lesions, sore throat, pain or difficulty with swallowing. Denies bleeding, hematuria or hematochezia. No pain. ALLERGIES No Known Allergies MEDICATIONS No current facility-administered medications on file prior to encounter. Current Outpatient Medications on File Prior to Encounter Medication Sig Dispense Refill acyclovir (ZOVIRAX) 400 mg tablet take one tablet by mouth twice daily 180 tablet 3 cholecalciferol, vitamin D3, 25 mcg (1,000 Unit) tablet Take 25 mcg by mouth daily. multivitamin capsule Take 1 capsule by mouth daily. ursodioL (ACTIGALL) 500 mg tablet Take 1 tablet (500 mg total) by mouth daily. PAST MEDICAL HISTORY Past Medical History: Diagnosis Date Blood Transfusion No Diagnosis 11/08/2018 Cataract Dry Eye Syndrome Bilateral Leukemia 10/27/2018 Malignant Primary Neoplasm (Unknown Site) Unspecified (HCC) Other Injury Of Unspecified Body Region 07/02/1974 PAST SURGICAL HISTORY Past Surgical History: Procedure Laterality Date CATARACT EXTRACTION W/ INTRAOCULAR LENS IMPLANT Right 08/19/2021 JOINT REPLACEMENT PHACOEMULSIFICATION CATARACT WITH INTRAOCULAR LENS IMPLANTATION Left 07/29/2021 Procedure: Left PHACOEMULSIFICATION CATARACT, INTRAOCULAR LENS IMPLANTATION.; Surgeon: Robi Bailon M.D.; Location: [place] [id number] OR PHACOEMULSIFICATION CATARACT WITH INTRAOCULAR LENS IMPLANTATION Right 08/19/2021 Procedure: Right PHACOEMULSIFICATION CATARACT, INTRAOCULAR LENS IMPLANTATION.; Surgeon: Robi Bailon M.D.; Location: [address] SOCIAL HISTORY Social History Socioeconomic History Marital status: Spouse name: Not on file Number of children: Not on file Years of education: Not on file Highest education level: Bachelor's degree (e.g., BA, AB, BS) Occupational History Not on file Tobacco Use Smoking status: Never Smokeless tobacco: Never Vaping Use Vaping status: never used Substance and Sexual Activity Alcohol use: Yes Alcohol/week: 1.0 standard drink of alcohol Types: 1 Cans of beer per week Drug use: Never Sexual activity: Yes Partners: Female control/protection: None Other Topics Concern Not on file Social History Narrative Not on file Social Determinants of Health Food Insecurity: No Food Insecurity (10/20/2023) Hunger Vital Sign Worried About Running Out of Food in the Last Year: Never true Ran Out of Food in the Last Year: Never true Transportation Needs: No Transportation Needs (10/20/2023) PRAPARE - Transportation Lack of Transportation (Medical): No Lack of Transportation (Non-Medical): No Intimate Partner Violence: Not At Risk (10/20/2023) Humiliation, Afraid, Rape, and Kick questionnaire Fear of Current or Ex-Partner: No Emotionally Abused: No Physically Abused: No Sexually Abused: No Housing Stability: Low Risk (10/20/2023) Housing Stability Housing: Living Situation: I have a steady place to live OBJECTIVE I/O Intake/Output Summary (Last 24 hours) at 10/20/2023 1521 Last data filed at 10/20/2023 1506 Gross per 24 hour Intake 100 ml Output -- Net 100 ml VITAL SIGNS Temperature: [36.7 ??C] 36.7 ??C Resp Rate: [18] 18 Blood Pressure: (128)/(58) 128/58 PHYSICAL EXAM General: No acute distress. HEENT: Conjunctivae non-injected and sclera anincteric. Oral cavity intact; moist without ulceration. Lungs: Clear to auscultation. No cough or wheezing. No increased work of breathing. Cardiac: Regular rate and rhythm. No murmur. Abdomen: Active bowel sounds in all four quadrants. Abdomen soft and non-tender with palpation. Skin: Exposed skin without rash, erythema, or ecchymosis. Color appropriate. Abrasive, scabbed lesions present to backs of bilateral knees. Extremities: No edema, cyanosis, pallor, or clubbing. Neuro: Speech clear and appropriate. No focal deficit. Mental: Alert and oriented to person, place, and time. Mood appropriate. KPS: 70% DIAGNOSTICS I have reviewed the recent relevant Diagnostics Results from last 7 days Lab Units 10/20/23 1023 EXT HEMOGLOBIN g/dL 16.1 EXT HEMATOCRIT % 46.9 EXT RBC AUTO mil/cu mm 5.02 EXT MCV fL 93 EXT RBC DISTRIBUTION WIDTH CV % 14.5 EXT WBC thou/cu mm 41.0* EXT MANUAL DIFF ABSOLUTE NEUTROPHIL COUNT thou/cu mm 34.4* EXT PLATELETS AUTO thou/cu mm 258 Results from last 7 days Lab Units 10/20/23 1023 EXT SODIUM mmol/L 137 EXT CHLORIDE mmol/L 99 EXT BUN mg/dL 21 EXT CREATININE mg/dL 1.09 EXT CALCIUM mg/dL 9.3 EXT BILIRUBIN TOTAL mg/dL 1.4* EXT ALK PHOS IU/L 110 EXT ALT IU/L 47 EXT AST IU/L 45 EXT GLUCOSE mg/dL 104* ASSESSMENT / PLAN Plan for Today: Admit to BMT inpatient service Fever work up as below Chest CT IV cefepime BID Infectious Disease consult 1L bolus for orthostatic hypotension # Acute myeloid leukemia trisomy 8, 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 Most recent sort chimerism from 08/19/2022 showed 100% donor DNA in the CD3 and CD33 fraction - CBC as per above. WBC 41K with ANC 34.4K. Repeat pending. # Fever # Hypotension - 10/20/2023: presented to [facility] with fever and hypotension. Noted he felt off but denies confusion at that time. He is not sure of his temperature at [facility] but notes it was 100.2 at home prior to presenting to clinic. - Given 1L of fluid at [facility] and 2g of Ceftriaxone; then transferred to [facility] for admission. - Upon admission: - Blood Cultures peripherally x2 pending - Blood Cultures, fungal, pending - Lactate 2.2 mmol/L - Urinalysis - midstream, pending - Urine Culture - midstream, pending - Chest X-ray - Left lower lobe pnuemonia without pleural effusion. - Started Cefepime 2 g IV BID - 1L bolus given orthostatic hypotension on arrival - Infectious Diseases Consult - Fall precautions - Curbsided neurology given LOC at outside clinic and lab analyst report of rigidity during episode. Neurology service feels this was more consistent with a vasovagal episode and does not require neurology consult at this time. - 10/20/2023: Chest CT with results as follows: New glass and consolidative opacities in the left upper and lower lobes are likely infectious or inflammatory. Continue IV cefepime and await ID recommendations. # Hyperbilirubinemia - 10/20/2023: Bili 1.4 on admission. Will repeat bili with direct and total with next labs. - Continue to monitor # Cold Sores - Continues on prophylactic Acyclovir # GVHD prophylaxis /mild chronic GVHD (mild hepatic transaminitis/mild dry mouth). - Remains off all IMS since 11/08/2021 - Continues on Actigall; will reduce to 500mg daily. Check labs in one month (Apr 2023), if stable,then will stop Actigall and recheck labs one month (May 2023) after stopping Actigall. # CMV surveillance - CMV PCR have been undetectable # Osteopenia - Vitamin D 3 25 mcg tablet daily along with multivitamin. - BMD from today showed ongoing osteopenia. Recheck annually - 10/20/2023: patient reports he is only taking acyclovir; no other medications or supplements. # Dermatoheliosis # Banal-appearing nevi # Aponte angiomas # Seborrheic keratoses # Skin tumor of uncertain behavior, left third (dorsal) DIP - Follows with Derm annually. Seen today, 03/24/2023. Shave biopsy performed of the left dorsal DIP. Derm to follow results. # Code Status - Full code. Discussed on admission 10/20/2023. # Disposition Mr. Devan Martinez will remain admitted for management of the above issues. documented in this encounter Consult Notes * Nitish Joseph R.N. - 10/22/2023 10:10 AM CDTAssociated Order(s): IP CONSULT TO CARE MANAGEMENT Discharge Planning Assessment SUBJECTIVE Assessment Information Referral Source: Nurse Referral Reason: Discharge Planning Previous assessment done on: 02/24/19 Previous assessment done by: Eliane Glaser L.I.C.S.W., M.S.WAshish Primary Language: Cuban Punch Hand Services Used: No Person(s) present during interview: Person(s) Present During Interview: patient History of Present Illness #1 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) #2 Transplant Stem Cell (HCC) #3 Fever Of Unknown Origin #4 Pneumonia Patient is on EI 9-3 Room 312. Social History Marital Status: . Family / Household: Two-Story Home; Lives with Spouse. Support System: spouse, family members, and friends/neighbors Primary Caregiver: self and spouse Caregiver Information: Caregiver Name: Hali Caregiver Relationship: [phone] Finance/Insurance Primary insurance: [email or web address] ACCESS Secondary insurance: N/A benefits: No Advance Directives Legal Decision Maker: Self Advance Directives: Advanced Care Plan, On file Advance Directives Status: Not Activated OBJECTIVE Baseline Functional Status Baseline Activities of Daily Living Mobility: Independent Dressing: Independent Feeding: Independent Bathing: Independent Grooming: Independent Toileting: Independent Behavior: Appropriate, Pleasant, Calm, Cooperative, Oriented Communication: Understands Cuban, Talks, Understands speaking Shopping: Independent Medication Management: Independent Housekeeping: Independent Meal Prep: Independent Assistive Devices: Cellphone, Eyeglasses, Medication box, Blood pressure cuff Baseline Services/Resources Primary care clinic and provider: ELSEWHERE, PCP Additional Resources: [facility] Line Anticipated Needs Functional Status: Transportation use (drive car, use taxi/bus) Assistive Devices: None Anticipated Modifications to the Patient's Home: None Transportation Needs: Support from family Does the patient need discharge transport arranged?: No Phone Number for Ride/Caregiver: Hali [phone] Anticipated Discharge Destination: Home or Self Care ASSESSMENT / PLAN Assessment: The destaticizer feeder met with Devan Martinez to discuss his current hospitalization and home going needs. The patient was unaccompanied. The patient was a reliable historian. The role of DEE SonManager was reviewed. The patient reviewed his prior level of care and support system. The patient receives support from his and children. The patient described his living environment as a multiple level home with stairs to enter with rails. Housekeeping, grocery shopping, meal prep, and other household responsibilities have previously been completed by patient and patient's . destaticizer feeder discussed the patient's potential needs at dismissal based on their home setting, previous needs and responsibilities, homebound status, and relevant assessments with the patient. The patient will be safe and supported to return home withspouse/S.O. when medically ready. Support will be provided by Hali. The patient demonstrated understanding when discussing his home going plans and anticipated needs. Intake Rn speak with patient via phone. Patient is alert, oriented and is agreeable to the conversation. Patient shares that he lives with his spouse, Hali in a two-story home in [place], [place]. Patient voices that he has been independent with all ADLs/IADLs prior to this hospitalization. Patient shares sufficient amount of support from his friends and family members. He and Hali have four adult children, who are supportive in his care. No additional concerns have been shared to Intake Rn regarding going home to self care with Hali. Hali will provide transportation upon discharge. Per IFD, patient will be transitioned to oral antibiotic upon discharge. At this time, the care team has not identified any skilled post-hospital discharge care needs that require the assistance of the Care Management Team. After reviewing the patient's chart and meeting with the patient, the destaticizer feeder deemed the LACE+/readmission questions were not necessary. The patient reports understanding that he will dismiss from the hospital when medically stable. Pending hospital course and medical readiness, no barriers to dismissal have been identified at this time. Plan: The patient agrees with the following plan. Patient's anticipated discharge disposition is: Home to Self Care Transportation upon dismissal will be provided by family--Hali . destaticizer feeder recommended reaching out to family, friends, and neighbors for assistance. destaticizer feeder provided information regarding the dismissal process and the Senior Linkage Line ([place] [employer] on [employer]) handout. destaticizer feeder placed or requested the following hospital-based consult orders and/or referrals: None. destaticizer feeder will continue to assess for homegoing needs with the interdisciplinary team. destaticizer feeder encouraged the patient to reach out with any questions/concerns. Care Management will continue to follow. Signed by: Linsey Joseph R.N. 10/22/2023 * Mireya Ham O.T., [facility] [place] - 10/22/2023 9:30 AM CDT Occupational Therapy Dysphagia Evaluation/Treatment SUBJECTIVE Patient's Name: Devan Martinez Referring/Attending Provider: Nahid Francisco M.D. 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) COVID-19 Infection Cerumen Impacted Bilateral Cough Acute Candidiasis Oral Wart Keratosis Seborrheic Dermatoheliosis Angioma [place] Multiple Tumor Skin Uncertain Behavior Sepsis (HCC) Pneumonia Pneumonia Community Acquired Cough Acute Herpes Simplex Gingivostomatitis Past Surgical History: Procedure Laterality Date CATARACT EXTRACTION W/ INTRAOCULAR LENS IMPLANT Right 08/19/2021 JOINT REPLACEMENT PHACOEMULSIFICATION CATARACT WITH INTRAOCULAR LENS IMPLANTATION Left 07/29/2021 Procedure: Left PHACOEMULSIFICATION CATARACT, INTRAOCULAR LENS IMPLANTATION.; Surgeon: Robi Bailon M.D.; Location: [place] [address] OR PHACOEMULSIFICATION CATARACT WITH INTRAOCULAR LENS IMPLANTATION Right 08/19/2021 Procedure: Right PHACOEMULSIFICATION CATARACT, INTRAOCULAR LENS IMPLANTATION.; Surgeon: Robi Bailon M.D.; Location: [place] [address] OR History of Present Illness:History of Present Illness: Mr. Martinez was admitted for left upper and lower lung pneumonia with significant leukocytosis and probable syncopal episode. Family/Caregiver Present: No Precautions Other Precautions: Aspiration OBJECTIVE Respiratory function: Room air Baseline Assessment: Mental Status: Alert Temperature Spikes Noted: No Respiratory Status: Room air Tracheostomy: No History of Intubation: No Premorbid Nutrition Method: Oral Premorbid Liquid Diet: IDDSI Level 0 Thin Premorbid/Current Diet: IDDSI Level 7 Regular Premorbid Med Administration: Whole with liquid Current Nutrition Method: Oral Current Diet Liquid: IDDSI Level 0 Thin Current Diet: IDDSI Level 7 Regular Current Med Administration: Whole with liquid Patient Positioning: Upright in chair Baseline Vocal Quality: Normal Volitional Cough: Strong Volitional Swallow: Within Normal Limits (WNL) Clinical Dysphagia: Oral / Motor Dentition: Adequate Labial ROM: Within Normal Limits (WNL) Labial Symmetry: Within Normal Limits (WNL) Labial Strength: Within Normal Limits (WNL) Lingual ROM: Within Normal Limits (WNL) Velum: (0) Within Normal Limits (WNL) Mandible Strength: (0) Within Normal Limts Facial Symmetry: (0) Within Normal Limits Facial Sensation: Impaired sensation Clinical Dysphagia Patient Position in Swallow Study: Chair Liquids: Level 0 Thin Solids: Level 7 Regular Level 0 Thin Presentation: Patient / caregiver Airway Protection: (No signs of aspiration) Compensatory Strategies Utilized in Exam: None Level 7 Regular Type of Solid Presented: Cracker Presentation: Patient / caregiver Airway Protection: (No signs of aspiration) Compensatory Strategies Utilized in Exam: none Quality of Life for Eating: Agree OT dysphagia treatment: Educated patient and/or caregiver on aspiration precautions Team Communication: Patient's nurse was contacted and patient's status was discussed Patient was left in bedside chair at end of session with call light in reach, all needs met and questions answered. Assessment Dysphagia Consult Assessment: Time Dysphagia Assessment Completed: 929 Clinical Impression: Mr. Martinez participated in a clinical bedside dysphagia evaluation on 10/22/2023 to assess safetywith oral intake/risks for aspiration. Factors contributing to aspiration risk include: recurrent pneumonia. Dysphagia Clinical Assessment: The patient participated in a clinical dysphagia evaluation this date to assess safety with oral intake/ risks for aspiration. The patient is currently maintaining safeoxygen saturations and respirations on room air. Volitional cough and throat clear observed to be strong. Physical examination of the oral mechanism revealed facial symmetry at rest. Tracheal cartilage in midline and laryngeal rise present. Oral motor examination of the tongue, lips, cheeks, and jaw was observed to be adequate. Velar rise was symmetric and bilateral on phonation. Patient was evaluated by OT dysphagia 03/2019 and was recommended regular diet and thin liquids. The patient particip ated in oral trials of thin liquids and solid consistencies resulting in no observable signs of aspiration/penetration. The patient is taking medications whole with liquids with no coughing, throat clearing, or change in vocalizations. Recommending patient remain on Regular diet and Thin liquids. Di scussed aspiration precautions including sitting upright, small bites/sips, and avoiding distractions while swallowing. No further dysphagia services indicated at this time. OT dysphagia will sign off - please reconsult if swallowing status changes or worsens. DIET RECOMMENDATIONS: Diet Recommendations - Solids: IDDSI Level 7 Regular Diet Recommendations - Liquids: IDDSI Level 0 Thin Recommended Form of Meds: Whole, With liquid Recommended Aspiration Precautions: -Watch closely for signs of aspiration, -Sit upright with all oral intake and when completing oral cares, -Eat small bites, take small sips, eat slowly, -Minimize talking during meals, -Avoid lying down for 30 minutes after meals, -Good oral care 3-5 times a day Positioning Recommendations: -Upright as possible for all oral intake, -Remain upright for 30-60 minutes after meals Recommendations for safe oral cares are as follows: -independent with regular or soft toothbrush/toothpaste Rehab potential: Mr. Martinez has good potential to achieve established occupational therapy goalswithin the time frame outlined below. Functional Goals and timeframes: Goal #1: Patient will tolerate safe and adequate nutrition and hydration on the least restrictive diet Met Goal #2: Patient will verbalize and demonstrate understanding of aspiration and aspiration precautions Met Plan Dysphagia Consult Plan: Patient agrees with the plan of care and goals. Treatment Interventions: Swallow dysfunction treatment OT Dysphagia Duration: Until goals are met or hospital duration OT Dysphagia Amount: 1 visit per day OT Dysphagia Frequency: One-time visit Inpatient OT Dysphagia Received On Date: 10/22/23 Plan: Plan of care initiated Plan Comments: dc'd Re-evaluate: As clinically indicated Time Spent with Patient Evaluations Clinical Dysphagia Evaluation (min): 8 min Therapeutic Interventions Swallow Dysfunction Treatment (min): 10 min Time Tracking Total Treatment Time (min): 18 min For any questions feel free to page OT dysphagia Thursday through Thursday 7:00am to 4:00pm: Our service pager at [facility]): [phone] Our service pager at [facility]: #[phone] * SarahiJaydenBARB García, P.A.-C., P.A. - 10/21/2023 7:48 AM CDT Infectious Diseases [facility] Consulting Service Consult Note SUBJECTIVE REASON FOR CONSULT We are seeing Mr. Martinez at the request of Nahid Francisco M.D. to give further recommendations for evaluation and management of S/p allo sct. Elevated WBC at outside clinic with fever/hypotension. Chest Xray + for LLL pneumonia. Appreciate recommendations.. HISTORY OF PRESENT ILLNESS Mr. Devan Martinez is a 63 year old male with a history of AML and is status post matched allo-SCT in 03/2019. Patient has had a cold for the last month but reports he started feeling worse yesterdaywith worsening cough and home temperature of 100.2. He went to [facility] and was hypotensive with BP in 90s/60s. During routine blood draw he became lightheaded and then was unresponsive. He was rigid and slumped over in the chair without hitting his head. After he was awake he vomited and was responsive. He received 2 g Rocephin. He was then admitted to [facility] BMT service. CBC revealed leukocytosis with WBC 41. He reports recent exposure to family member with COVID within the last 5days. Patient reports he had a similar syncopal episode in July 2022 with URI with RLL involvement. RPP at the time was positive for RSV, though he did not receive treatment for this. He received course of Augmentin. Upon admission, infectious workup was obtained and he was started on cefepime. He was afebrile and was non-tachycardic and non-hypotensive. Chest x-ray was positive for left lower lobe pneumonia without pleural effusion. CT chest showed new glass and consolidative opacities in the left upper and lower lobes. Blood and urine cultures are pending. Neurology consult described recent episode as vasovagal event. ID was consulted for treatment recommendations. Today, he reports persistent, productive cough. He has remained afebrile overnight and reports no acute concerns. He denies lightheadedness, chest pain, shortness of breath, nausea, vomiting, diarrhea, or constipation. 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 He and his recently travelled to [place] in July. Infectious disease exposure history is as follows: Hobbies include - Volunteering for [employer] for house construction Recent contact with ill persons - Family member with COVID History Review REVIEW OF SYSTEMS A 10-point ROS was performed and negative except as noted in HPI. OBJECTIVE PHYSICAL EXAMINATION Vital Signs: I have reviewed the current vital sign data as applicable. HEENT: Normocephalic, atraumatic. EOMI. No scleral icterus. Moist oral mucosa. CV: Regular rate and rhythm. S1 and S2 normal. No murmurs, rubs, or gallops appreciated. No lower extremity edema. Resp: Clear to auscultation bilaterally. Normal work of breathing on room air. GI: Soft, nondistended. Normoactive bowel sounds. Nontender to palpation. Extremities: Well perfused. No deformities appreciated. Skin: Warm, dry. No visibile rashes. Mental: Alert, oriented. Appropriate with conversation. Neuro: No focal deficits appreciated. DIAGNOSTICS I have reviewed diagnostics. Studies of note include: -Chest X-ray 10/20/23: Compared with 04/24/2023. Left lower lobe pneumonia is new. No pleural effusion is present. Heart size is normal. CT Chest Angiogram 10/20/23: New glass and consolidative opacities in the left upper and lower lobes are likely infectious or inflammatory. 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 S/p HLA-matched allo-SCT (03/2019) B. S/p Induction with 7+3 (10/2018) C. S/p cytarabine consolidation (11/2018) D. Prophylaxis with acyclovir 400 mg daily # History of URI # History of RSV (08/19/2022) A. Received course of Augmentin (07/2022) Mr. Martinez is a 63 year old male with a history of AML and is status post matched allo-SCT in 03/2019. Patient currently receiving cefepime for new LLL pneumonia. Plan to continue cefepime. 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 Monitor for blood and urine cultures. No changes to treatment at this time. ID will continue to follow while awaiting results. RECOMMENDATIONS: Obtain sputum bacterial and fungal cultures Continue Cefepime 2 g IV BID Obtain strep pneumo urine antigen Obtain legionella antigen urine Obtain serum Fungitell antigen Obtain serum Aspergillus antigen Perform bedside swallow study to rule out potential aspiration risk Treatment plan reviewed with Mr. Martinez, who expressed understanding. All questions answered to patient's satisfaction. We will follow along closely. Please page the [facility] service pager at [phone] with questions. Thank you for the consultation. BARB Muller, P.A.-C. Hematology JORGE Fellow Associated attestation - Sara Whitt M.B., Ch.B. - 10/21/2023 1:31 PM CDT I have personally seen and examined the patient. I agree with the documentation of Ms Mcclain dated 10/21/23. Please see that note for detailed recommendations. ASSESSMENT Left sided pneumonia Probable syncopal episode AML s/p HSCT 2018 Mr. Martinez has been admitted with acute onset systemic symptoms and a probable syncopal episode,found to have left upper and lower lung pneumonia with significant leukocytosis. He had a similar episode in April 2023 requiring ICU admission, with right lower lung infiltrates at that time. For now we would suggest continuing cefepime, obtaining sputum cultures and additional studies as outlined below. Given the rapid onset of the two pneumonia episodes within the past 6 months a further evaluation for aspiration could be considered, although he does not have any overt symptoms of aspiration. RECOMMENDATIONS Please continue cefepime 2 g q12h IV for now Obtain sputum specimen for Gram stain, bacterial culture, fungal smear, fungal culture Obtain pneumococcal urine antigen, Legionella urine antigen, serum beta D glucan, serum galactomannan and Histoplasma/Blastomyces serum antigen Consider evaluation for possible aspiration documented in this encounter Nursing Notes * Yamilet Trevino R.N. - 10/22/2023 6:30 AM CDT Problem: PAIN - ADULT Goal: PT VERBALIZES/DEMONSTRATES ADEQUATE COMFORT LEVEL OR BASELINE 10/22/2023 06 by Yamilet Trevino R.N. Outcome: Progressing Note: Patient denies any pain. Problem: INFECTION - ADULT Goal: Absence of infection during hospitalization 10/22/2023 06 by Yamilet Trevino R.N. Outcome: Progressing Note: On cefepime for pneumonia. Shift Goals: Clinical Goals for the Shift: Patient will report adequate sleep overnight Identify possible barriers to meeting goals/advancing plan of care: hospital environment End of Shift Summary: Patient was able to sleep with minimal nursing interruptions. documented in this encounter Miscellaneous Notes * Hospital Course - Magali Rutherford APRN, C.N.P., D.N.P. - 10/22/2023 9:00 AM CDT Mr. 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 He was directly admitted to the inpatient BMT setting for work-up and management of fever, hypotension, and leukocytosis. He was initiated on Cefepime 2 g IV BID.CT revealed left lung consolidations suggestive of community acquired pneumonia. OT evaluated his swallow without concern for aspiration. ID was consulted. Work- up was unrevealing. IV antibiotics were transitioned to Augmentin twice daily to complete 10 days of antibiotics (End of treatment 10/29/23). On day of hospital dismissal he noted new cold sore, which has a prior history of. He was started on Acyclovir 800 mg twice daily for a planned 10 day course. He remained hemodynamically stable and did not require supplemental oxygen. He was deemed medicallystable to dismiss from the inpatient setting on 10/22/23. He will have labs locally next week and has BMT follow-up video visit planned for 10/30/23. documented in this encounter Plan of Treatment Upcoming Encounters Date Type Department Care Team (Late st Contact Info) Description 10/30/2023 2:00 PM CDT Telemedicine [facility] in [place], [place] [address] [place] [address] Magali Rutherford APRN, C.N.Alin., D.N.P. [address] [place] [address] Pending Results Name Type Priority Associated Diagnoses Date /Time Bacteria / Cristina Culture, Blood Central Line Lumen #1 Microbiology STAT 10/20/2023 3:15 PM CDT Bacteria / Cristina Culture, Blood Central Line Lumen #2 Microbiology STAT 10/20/2023 3:09 PM CDT Fungal / TB Culture, Special, Blood Microbiology STAT 10/20/2023 3:10 PM CDT Fungal Culture, Routine Microbiology Routine 10/21/2023 1:23 PM CDT Herpes Simplex Virus PCR Microbiology Routine 10/22/2023 12:56 PM CDT Scheduled Orders Name Type Priority Associated Diagnoses Orde r Schedule Fungal / TB Culture, Special, Blood Microbiology Routine Routine lab jesse ection (next collection) for 1 Occurrences starting 10/20/2023 until 10/20/2023 Fungal Culture, Routine Microbiology Routine Routine lab jesse ection (next collection) for 1 Occurrences starting 10/21/2023 until 10/21/2023 Herpes Simplex Virus PCR Microbiology Routine Routine lab jesse ection (next collection) for 1 Occurrences starting 10/22/2023 until 10/22/2023 documented as of this encounter Procedures Procedure Name Priority Date/Time Associated Diagnosis Comments HISTOPLASMA/BLASTOMYC ES AG, EIA, S Routine 10/22/2023 3:17 AM CDT CBC NO CALL BACK, REFLEX T/S Routine 10/22/2023 3:17 AM CDT ASPERGILLUS AG Routine 10/22/2023 3:17 AM CDT COMPREHENSIVE METABOLIC PANEL, S/P Routine 10/22/2023 3:17 AM CDT BACTERIAL CULTURE, AEROBIC + SUSC, RESP Routine 10/21/2023 1:23 PM CDT STREPTOCOCCUS PNEUMONIAE AG, U Routine 10/21/2023 1:23 PM CDT LEGIONELLA AG, U Routine 10/21/2023 1:23 PM CDT FUNGAL SMEAR Routine 10/21/2023 1:23 PM CDT GRAM STAIN Routine 10/21/2023 1:23 PM CDT (1, 3) [id number] (FUNGITELL), S Routine 10/21/2023 1:17 PM CDT ASPERGILLUS AG Routine 10/21/2023 1:17 PM CDT CBC WITH DIFFERENTIAL, B Routine 10/21/2023 3:09 AM CDT BILIRUBIN DIRECT, S/P Routine 10/21/2023 3:09 AM CDT COMPREHENSIVE METABOLIC PANEL, S/P Routine 10/21/2023 3:09 AM CDT IMMUNOGLOBULIN G (IGG), S Routine 10/21/2023 3:06 AM CDT RESPIRATORY PANEL, PCR, OEM SALES MANAGER Routine 10/20/2023 6:38 PM CDT VRE PCR Routine 10/20/2023 6:[address] CHEST WITHOUT IV CONTRAST RAD - Routine (most inpatients and all outpatients) 10/20/2023 4:35 PM CDT DIPSTICK, U STAT 10/20/2023 4:29 PM CDT MICROSCOPIC AUTOMATED STAT 10/20/2023 4:29 PM CDT BACTERIAL CULTURE, AEROBIC + SUSC, URINE STAT 10/20/2023 4:29 PM CDT PH, U STAT 10/20/2023 4:29 PM CDT OSMOLALITY, U STAT 10/20/2023 4:29 PM CDT URINALYSIS WITH MICROSCOPIC STAT 10/20/2023 4:29 PM CDT DX CHEST AP OR PA AND LATERAL 2 VIEWS RAD - Emergent (Fastest; for the most critically ill patients) 10/20/2023 3:23 PM CDT SPSMA RESULT Routine 10/20/2023 3:16 PM CDT BACTERIA / CRISTINA CULTURE, BLOOD STAT 10/20/2023 3:15 PM CDT BACTERIA / CRISTINA CULTURE, BLOOD STAT 10/20/2023 3:09 PM CDT CBC NO CALL BACK, REFLEX T/S STAT 10/20/2023 3:08 PM CDT LACTATE, B/P STAT 10/20/2023 3:08 PM CDT documented in this encounter Results * Histoplasma and Blastomyces Antigen, Enzyme Immunoassay, Serum (10/22/2023 3:17 AM CDT) Histoplasma/Blasto myces Ag Result Not Detected Not Detected 10/22/2023 11:30 AM CDT [facility] Comment: No antigen from Histoplasma or Blastomyces detected. ??False negative results may occur depending on extent of disease, and/or site of infection. ??Repeat testing on a new specimen if clinically indicated. ?? Histoplasma/Blasto myces Ag Value Not Detected ng/mL 10/22/2023 11:30 AM CDT [facility] Comment: ----ADDITIONAL INFORMATION---- This test was developed and its performance characteristics determined by [facility] in a manner consistent with CLIA requirements. This test has not been cleared or approved by the U.S. Food and Drug Administration. Blood (Blood, Venous) 10/22/2023 3:17 AM CDT 10/22/2023 7:56 AM CDT Ovi Lockwood APRN.N.P., D.N .P. LAB MICROBIOLOGY - BLOOD ORDERABLES Performing Organization Address [facility]/ZIP Co de Phone Number [facility] [address] [place] [address] [facility] [address] [place] [address] [place] [address] * Aspergillus Ag (10/22/2023 3:17 AM CDT) Aspergillus Ag, S <0.500 <0.5 index 10/22/2023 12:24 PM CDT [facility] Comment: ----ADDITIONAL INFORMATION---- This is a qualitative test and the resulted index value is not indicative of disease severity. ??Serial testing is recommended for patients at high risk for invasive aspergillosis. This assay was performed using the FDA-cleared Bio-Rad Platelia Aspergillus Galactomannan EIA. Blood (Blood, Venous) 10/22/2023 3:17 AM CDT 10/22/2023 7:37 AM CDT Magali Rutherford APRN, Ovi.N.P., D.N .P. LAB MICROBIOLOGY - BLOOD ORDERABLES Performing Organization Address [facility] Co de Phone Number [facility] [address] [place] [address] [facility] [address] [place] [address] [place] [address] * (ABNORMAL) CBC no call back, reflex T/S HGB <8 (10/22/2023 3:17 AM CDT) Hemoglobin 14.3 13.2 - 16.6 g/dL 10/22/2023 [...] C.N.P., D.N .P. LAB BLOOD NON ADD-ON [facility] [address] [place] [address], [facility] DTL [facility] [address] [place] [address] DHPM [facility] [address] [place] [address] * (ABNORMAL) Comprehensive Metabolic Panel (10/22/2023 3:17 AM CDT) Potassium, S 5.1 3.6 - 5.2 mmol/L [...] - 1.2 mg/dL 10/22/2023 4:19 AM CDT DT Blood (Blood, Venous) 10/22/2023 3:17 AM CDT 10/22/2023 3:50 AM CDT Ovi Lockwood APRN.N.P., D.N .P. LAB BLOOD ADD-ON Performing Organization Address City/[facility]/ZIP Co de Phone Number [facility] [address] [place], [place] [id number] [place] [address] [address] [place] [address] * Fungal Smear (10/21/2023 1:23 PM CDT) Fungal Smear Negative. 10/22/2023 9:23 AM CDT DT Sputum 10/21/2023 1:23 PM CDT 10/21/2023 6:10 PM CDT Comment:Specimen Source Site : Sputum Ovi Lockwood APRN.N.P., D.N .P. LAB MICROBIOLOGY - GENERAL ORDERABLES Performing Organization Address City/[facility] Co de Phone Number [facility] [address] [place] [address], [facility] [address] [place] [address] * Gram Stain (10/21/2023 1:23 PM CDT) Gram Stain Upper respiratory/ora l microbiota White blood cells, Many Epithelial cells, Moderate 10/21/2023 10:51 PM CDT DT Sputum 10/21/2023 1:23 PM CDT 10/21/2023 6:10 PM CDT Comment:Specimen Source Site : Sputum Ovi Lockwood APRN.N.P., D.N .P. LAB MICROBIOLOGY - GENERAL ORDERABLES Performing Organization Address City/[facility]/ZIP Co de Phone Number [facility] [address] [place] [address], [facility] [address] [place] [address] * Legionella Antigen, Urine (10/21/2023 1:23 PM CDT) Legionella Ag, U Negative Negative 10/22/19 2:39 PM CDT [facility] Comment: Negative for L. pneumophila [...] 1:23 PM CDT 10/21/2023 5:15 PM CDT Magali Rutherford APRN, C.N.P., D.N .P. LAB MICROBIOLOGY - GENERAL ORDERABLES [facility] [address] [place] [address] [facility] [address] [place] [address] [place] [address] * Streptococcus pneumoniae Antigen, Urine (10/21/2023 1:23 PM CDT) Pathologist [facility] Streptococcus pneumoniae Ag, U Negative Negative 10/22/2023 12:28 PM CDT [facility] Comment: Negative for pneumococcal pneumonia, [...] 1:23 PM CDT 10/21/2023 5:15 PM CDT Magali Rutherford APRN, C.NAshishPAshish, D.N .P. LAB MICROBIOLOGY - GENERAL ORDERABLES Performing Organization Address City/[facility] Co de Phone Number [facility] [address] [place] [address] [facility] [address] [place] [address] [place] [address] * Bacterial Culture, Aerobic + Susceptibility, Respiratory (10/21/2023 1:23 PM CDT) Bacterial Culture, Aerobic, Resp Upper respiratory/or al microbiota 10/23/2023 11:30 AM CDT DTL Sputum (Sputum) 10/21/2023 1 :23 PM CDT 10/21/2023 6:10 PM CDT Comment:Specimen Source Site : Sputum Wilfredo Lockwood APRNN.PAshish, D.N .P. LAB MICROBIOLOGY - GENERAL ORDERABLES Performing Organization Address [facility] de Phone Number [facility] [address] [place] [address], [facility] DTL [facility] [address] [place] [address] * Aspergillus Ag (10/21/2023 1:17 PM CDT) Pathologist [facility] Aspergillus Ag, S <0.500 <0.5 index 10/22/2023 12:24 PM CDT [facility] Comment: ----ADDITIONAL INFORMATION---- This is a qualitative test and the resulted index value is not indicative of disease severity. ??Serial testing is recommended for patients at high risk for invasive aspergillosis. This assay was performed using the FDA-cleared Bio-Rad Platelia Aspergillus Galactomannan EIA. Blood (Blood, Venous) 10/21/2023 1:17 PM CDT 10/21/2023 5:16 PM CDT Wilfredo Lockwood APRNN.PAshish, D.N .P. LAB MICROBIOLOGY - BLOOD ORDERABLES Performing Organization Address City/[facility] Co de Phone Number [facility] [address] [place] [address] [facility] [address] [place] [address] [place] [address] * (1, 3) Gocx-N-Aowpmc (Fungitell), Serum (10/21/2023 1:17 PM CDT) Pathologist [facility] (1, 3) Crdj-W-Ilugjo, Quantitative <31 <60 pg/mL pg/mL 10/22/2023 10:34 AM CDT SDS (1, 3) Fhsc-X-Tdlyaq, Qualitative Negative Negative 10/22/2023 10:34 AM CDT [facility] Comment: No (1, 3) Pvsz-P-Hmhlvw detected. ?? This assay does not detect certain fungi, including Cryptococcus species, which produce very low levels of (1, 3) Lfla-A-Zduust (BDG) and the Mucorales (e.g., Lichthemia, Mucor and Rhizopus), which are not known to produce BDG. Additionally, the yeast phase of Blastomyces dermatitidis produces little BDG and may not be detected by this assay. ----ADDITIONAL INFORMATION---- This assay was performed using the FDA-cleared Fungitell Assay ([facility], [place], [place], [place]), a kinetic REBEKA based on modification of the Limulus Amebocyte Lysate pathway. Blood (Blood, Venous) 10/21/2023 1:17 PM CDT 10/21/2023 5:15 PM CDT Magali Rutherford APRN, C.N.P., D.N .P. LAB MICROBIOLOGY - BLOOD ORDERABLES [facility] [address] [place] [address] [facility] [address] [place] [address] [place] [address] * (ABNORMAL) Bilirubin, Direct (10/21/2023 3:09 AM CDT) Bilirubin, Direct, S 0.4(H) 0.0 - 0.3 mg/dL 10/21/2023 4:06 AM CDT DTL Blood (Blood, Venous) 10/21/2023 3:09 AM CDT 10/21/2023 3:42 AM CDT Wilfredo Bundy APRNNAlfonso, D.N.P. LAB BLOOD ADD-ON [facility] [address] [place] [address], [facility] DTL [facility] [address] [place] [address] * (ABNORMAL) Comprehensive Metabolic Panel (10/21/2023 3:09 AM CDT) [facility] Potassium, S 4.6 3.6 - 5.2 mmol/L 10/21/2023 4:06 AM CDT DTL Sodium, S 139 135 - 145 mmol/L 10/21/2023 4:06 AM CDT DTL Chloride, S 106 98 - 107 mmol/L 10/21/2023 4:06 AM CDT DTL Bicarbonate, S 25 22 - 29 mmol/L 10/21/2023 4:06 AM CDT DTL Anion Gap 8 7 - 15 10/21/2023 4:06 AM CDT DTL BUN (Blood Urea Nitrogen), S 16 8 - 24 mg/dL 10/21/2023 4:06 AM CDT DTL Creatinine 1.07 0.74 - 1.35 mg/dL 10/21/2023 4:06 AM CDT DTL Estimated GFR (eGFR) 78 >=60 mL/min/BS A 10/21/2023 4:06 AM CDT DTL Comment: Estimated GFR calculated using the 2020 CKD_EPI creatinine equation. Calcium, Total, S 8.4(L) 8.8 - 10.2 mg/dL 10/21/2023 4:06 AM CDT DTL Glucose, S 107 70 - 140 mg/dL 10/21/2023 4:06 AM CDT DTL Protein, Total, S 5.9(L) 6.3 - 7.9 g/dL 10/21/2023 4:06 AM CDT DTL Albumin, S 3.4(L) 3.5 - 5.0 g/dL 10/21/2023 4:06 AM CDT DTL Aspartate Aminotransferase (AST), S 44 8 - 48 U/L 10/21/2023 4:06 AM CDT DTL Alkaline Phosphatase, S 99 40 - 129 U/L 10/21/2023 4:06 AM CDT DTL Alanine Aminotransferase (ALT), S 55 7 - 55 U/L 10/21/2023 4:06 AM CDT DTL Bilirubin, Total, S 1.3(H) 0.0 - 1.2 mg/dL 10/21/2023 4:06 AM CDT DTL Blood (Blood, Venous) 10/21/2023 3:09 AM CDT 10/21/2023 3:42 AM CDT Orlando Ceja APRN, C.N.P., D.N.P. LAB BLOOD ADD-ON [address] [address], [facility] [address] [address] * (ABNORMAL) CBC with Differential, Blood (10/21/2023 3:09 AM CDT) Hemoglobin 14.4 13.2 - 16.6 g/dL 10/21/2023 [...] Ceja APRN, C.N.P., D.N.P. LAB BLOOD ADD-ON Performing Organization Address City/[facility]/ZIP Co de Phone Number [facility] [address] [place] [address], [facility] DTL [facility] [address] [place] [address] DHPM [facility] [address] [place] [address] * Immunoglobulin G (IgG) (10/21/2023 3:06 AM CDT) [facility] Immunoglobulin G (IgG), S 1470 767 - 1590 mg/dL 10/21/2023 7:26 PM CDT [facility] Blood (Blood, Venous) 10/21/2023 3:06 AM CDT 10/21/2023 5:14 PM CDT Magali Rutherford APRN, C.N.P., D.N .P. LAB BLOOD ADD-ON [facility] [address] [place] [address] [facility] [address] [place] [address] * Respiratory Panel, PCR, Nasopharyngeal (10/20/2023 6:38 PM CDT) Specimen Source NASOPHARYNGEAL SWAB 10/20/2023 9:05 PM [...] using the FDA-Cleared FilmArray Respiratory Panel 2.1 ([employer]). This assay is performed using the FilmArray Respiratory Panel 2.1 ([employer]). For testing performed at [facility] in [place], [place], performance characteristics for samples submitted in phosphate buffered saline were determined by [facility] in a manner consistent with CLIA requirements. Swab (Nasopharynx) 10/20/2023 6:38 PM CDT 10/20/2023 7:04 PM CDT Ovi Bundy APRN.N.P., D.N.P. LAB MICROBIOLOGY - GENERAL ORDERABLES Performing Organization Address [facility] Co de Phone Number [facility] [address] [place] [address], [facility] DT [address] [facility] [address] [place] [address] * VRE PCR (10/20/2023 6:38 PM CDT) Specimen Source Swab, Perianal 10/21/2023 9:54 PM CDT DTL VRE PCR Negative Negative 10/21/2023 9:54 PM CDT DTL Comment: ----ADDITIONAL INFORMATION---- This test was developed using an analyte specific reagent. Its performance characteristics were determined by [facility] in a manner consistent with CLIA requirements. This test has not been cleared or approved by the U.S. Food and Drug Administration. Swab (Perianal) 10/20/2023 6 :38 PM CDT 10/20/2023 7:08 PM CDT Ovi Bundy APRN.N.P., D.N.P. LAB MICROBIOLOGY - GENERAL ORDERABLES Performing Organization Address City/[facility] Co de Phone Number [facility] [address] [place] [address], [facility] DTL [address] [place] [address] * CT Chest without IV Contrast (10/20/2023 [...] Ceja APRN, C.N.P., D.N.P. LAB URINE ORDERABLES [facility] [address] [place] [address], [facility] [address] [place] [address] * Osmolality, Urine (10/20/2023 4:29 PM CDT) Osmolality, U 518 150 - 1150 mOsm/kg 10/20/2023 5:07 PM CDT DTL Urine 10/20/2023 4:29 PM CDT 10/20/2023 4:44 PM CDT Ovi Bundy APRN.N.PAshish, D.N.P. LAB URINE ORDERABLES [facility] [address] [place] [address], [facility] [address] [place] [address] * Microscopic Automated (10/20/2023 4:29 PM CDT) Microscopy Normal 10/20/2023 5:07 PM CDT DTL RBC None Seen <3 /hpf 10/20/2023 5:07 PM CDT DTL WBC None Seen /hpf 10/20/2023 5:07 PM CDT DTL Comment: ----REFERENCE VALUE---- <4 ??(Males) <11 (Females) Urine 10/20/2023 4:29 PM CDT 10/20/2023 4:44 PM CDT Ovi Bundy APRN.N.P., D.N.P. LAB URINE ORDERABLES Performing Organization Address City/[facility]/ZIP Co de Phone Number [facility] [address] [place] [address], [facility] [address] [place] [address] * pH, Urine (10/20/2023 4:29 PM CDT) pH, U 5.3 4.5 - 8.0 10/20/2023 5:0 7 PM CDT DTL Urine 10/20/2023 4:29 PM CDT 10/20/2023 4:44 PM CDT Orlando Ceja APRN, C.N.P., D.N.P. LAB URINE ORDERABLES Performing Organization Address City/[facility]/ZIP Co de Phone Number [facility] [address] [place] [address], [facility] [address] [place] [address] * Urinalysis, with Microscopic: Urine, Midstream (10/20/2023 [...] D.N.P. LAB URINE ORDERABLES Performing Organization Address City/[facility]/ZIP Co de Phone Number [facility] [address] [place] [address], [facility] [address] [place] [address] * Bacterial Culture, Aerobic + Susceptibility, Urine (10/20/2023 4:29 PM CDT) Urine Culture No growth after 1 day of incubation. 10/22/2023 7:10 AM CDT DTL Urine (Urine, Midstream) 10/20/2023 4:29 PM CDT 10/20/2023 7:46 PM CDT Comment:Specimen Source Site : Urine Orlando Ceja APRN, C.N.P., D.N.P. LAB MICROBIOLOGY - GENERAL ORDERABLES Performing Organization Address City/[facility]/ZIP Co de Phone Number [facility] [address] [place], [place] [address] [address] [place] [address] * DX Chest AP or PA and [...] pleuraleffusion is present. Heart size is normal. Orlando Ceja APRN, C.N.P., D.N.P. IMG DIAGNOSTIC IMAGING PROCEDURES * (ABNORMAL) [...] 3:16 PM CDT 10/20/2023 3:31 PM CDT Orlando Ceja APRN, C.N.P., D.N.P. LAB BLOOD ADD-ON Performing Organization Address City/[facility]/ZIP Co de Phone Number [facility] [address] [place] [address] * Lactate (10/20/2023 3:08 PM CDT) [facility] Lactate, P 2.2 0.5 - 2.2 mmol/L 10/20/2023 4:03 PM CDT DTL Blood (Blood, Venous) 10/20/2023 3:08 PM CDT 10/20/2023 3:46 PM CDT Orlando Ceja APRN, Ovi.N.P., D.N.P. LAB BLOOD NON ADD-ON Performing Organization Address [facility] Co de Phone Number [facility] [address] [place] [address] * (ABNORMAL) CBC no call back, reflex T/S HGB <8 (10/20/2023 3:08 PM CDT) [facility] Hemoglobin 14.7 13.2 - 16.6 g/dL 10/20/2023 3:44 PM CDT DTL Hematocrit 43.4 38.3 - 48.6 % 10/20/2023 3:44 PM CDT DTL Erythrocytes 4.63 4.35 - 5.65 x10(12)/L 10/20/2023 3:44 PM CDT DTL MCV 93.7 78.2 - 97.9 fL 10/20/2023 3:44 PM CDT DTL RBC Distrib Width 13.9 11.8 - 14.5 % 10/20/2023 3:44 PM CDT DTL Platelet Count 235 135 - 317 x10(9)/L 10/20/2023 3:44 PM CDT DTL Leukocytes 43.9(H) 3.4 - 9.6 x10(9)/L 10/20/2023 6:41 PM CDT DTL Comment:Results confirmed by smear. Neutrophils 35.90(H) 1.56 - 6.45 x10(9)/L 10/20/2023 6:41 PM CDT [facility] Comment:Rechecked Lymphocytes 4.96(H) 0.95 - 3.07 x10(9)/L 10/20/2023 6:41 PM CDT DTL Monocytes 2.94(H) 0.26 - 0.81 x10(9)/L 10/20/2023 6:41 PM CDT DTL Eosinophils <0.03 0.03 - 0.48 x10(9)/L 10/20/2023 6:41 PM CDT DTL Basophils 0.04 0.01 - 0.08 x10(9)/L 10/20/2023 6:41 PM CDT DTL Blood (Blood, Venous) 10/20/2023 3:08 PM CDT 10/20/2023 3:34 PM CDT Orlando Ceja APRN, C.N.P., D.N.P. 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) Hypotension Cough Acute Herpes Simplex Gingivostomatitis documented in this encounter Admitting Diagnoses Diagnosis Fever Of Unknown Origin documented in this encounter Administered Medications Inactive Administered Medications - up to 3 most recent administrations Medication Order MAR Action Action Date Dose Rate Site acetaminophen tablet 650 mg (TYLENOL) 650 mg, oral, Every 4 hours PRN, mild pain or score 1-3 of 10, Starting on Thu10/20/23 at 1446, Check temperature prior to administration Given 10/20/2023 3:13 PM CDT 650 mg acyclovir tablet 400 mg (ZOVIRAX) 400 mg, oral, 2 times daily, First dose on Thu10/20/23 at 2100, Drug Monitoring Program: Pharmacist to adjust medication dosing based on indication and drug clearance factors., Indications: Prophylaxis, medical Given 10/22/2023 8:55 AM CDT 400 mg Given 10/21/2023 8:57 PM CDT 400 mg Given 10/21/2023 8:58 AM CDT 400 mg acyclovir tablet 800 mg (ZOVIRAX) 800 mg, oral, 2 times daily, First dose on Thu10/22/23 at 2100, For 10 days, 10 day course. Upon completion resume 400 mg daily dosing of acyclovir., Drug Monitoring Program: Pharmacist to adjust medication dosing based on indication and drug clearance factors., Indications: HSV, non-BAKER BISCUIT amoxicillin-pot clavulanate 875-125 mg per tablet 1 tablet (AUGMENTIN) 1 tablet, oral, Every 12 hours scheduled, First dose on Thu10/22/23 at 2100, For 8 days, Drug Monitoring Program: Pharmacist to adjust medication dosing based on indication and drug clearance factors., Indications: Respiratory tract infection, community acquired cefepime in dextrose (iso osm) IVPB 2 g (MAXIPIME) 2 g, intravenous, at 200 mL/hr, Administer over 30 Minutes, Every 12 hours, First dose on Thu10/20/23 at 1515, Drug Monitoring Program: Pharmacist to adjust medication dosing based on indication and drug clearance factors., Indications: Febrile neutropenia New Bag 10/22/2023 3:25 AM CDT 2 g 200 mL/hr New Bag 10/21/2023 3:14 PM CDT 2 g 200 mL/hr New Bag 10/21/2023 3:18 AM CDT 2 g 200 mL/hr enoxaparin injection 40 mg (LOVENOX) 40 mg, subcutaneous, Every 24 hours scheduled, First dose on Thu10/21/23 at 0900 Given 10/22/2023 8:55 AM CDT 40 mg Right Lower Abdomen Given 10/21/2023 8:58 AM CDT 40 mg Ri ght Lower Abdomen Lactated Ringer's bolus 1,000 mL 1,000 mL, intravenous, at 1,000 mL/hr, Administer over 1 Hours, Once, On Thu10/20/23 at 1715, For 1 dose New Bag 10/20/2023 4:59 PM CDT 1,000 mL 1000 mL/hr magnesium sulfate in water IVPB 2 g 2 g, intravenous, at 25 mL/hr, Administer over 120 Minutes, Once, On Thu10/20/23 at 1545, For 1 dose New Bag 10/20/2023 4:05 PM CDT 2 g 25 mL/hr documented in this encounter Active and Recently Administered Medications Times are shown in CDT. Scheduled Medication Order 10/20/2023 10/21/2023 10/22/2023 acyclovir tablet 400 mg (ZOVIRAX) (CANCELED) 400 mg, oral, 2 times daily, First dose on Thu10/20/23 at 2100, Drug Monitoring Program: Pharmacist to adjust medication dosing based on indication and drug clearance factors., Indications: Prophylaxis, medical 2027 (Given - Provider: Parisa Campbell R.N.) 0858 (Given - Provider: Zoraida Pritchard R.N.)2056 (Given - Provider: Yamilet Trevino R.N. - Comment: barcode did not scan due to some being ripped) 0855 (Given - Provider: Esmer Araya RAshishN.) acyclovir tablet 800 mg (ZOVIRAX) 800 mg, oral, 2 times daily, First dose on Thu10/22/23 at 2100, For 10 days, 10 day course. Upon completion resume 400 mg daily dosing of acyclovir., Drug Monitoring Program: Pharmacist to adjust medication dosing based on indication and drug clearance factors., Indications: HSV, non-BAKER BISCUIT amoxicillin-pot clavulanate 875-125 mg per tablet 1 tablet (AUGMENTIN) 1 tablet, oral, Every 12 hours scheduled, First dose on Thu10/22/23 at 2100, For 8 days, Drug Monitoring Program: Pharmacist to adjust medication dosing based on indication and drug clearance factors., Indications: Respiratory tract infection, community acquired cefepime in dextrose (iso osm) IVPB 2 g (MAXIPIME) (CANCELED) 2 g, intravenous, at 200 mL/hr, Administer over 30 Minutes, Every 12 hours, First dose on Thu10/20/23 at 1515, Drug Monitoring Program: Pharmacist to adjust medication dosing based on indication and drug clearance factors., Indications: Febrile neutropenia 1506 (New Bag - Provider: Karen Newman R.N.) 0318 (New Bag - Provider: Alexia GossNAshish)1514 (New Bag - Provider: Karen Newman R.N.) 0325 (New Bag - Provider: Yamilet Trevino R.N.) enoxaparin injection 40 mg (LOVENOX) (CANCELED) 40 mg, subcutaneous, Every 24 hours scheduled, First dose on Thu10/21/23 at 0900 0858 (Given - Provider: Zoraida Pritchard RAshishNAshish) 0855 (Given - Provider: Esmer Araya R.N.) Lactated Ringer's bolus 1,000 mL (COMPLETED) 1,000 mL, intravenous, at 1,000 mL/hr, Administer over 1 Hours, Once, On Thu10/20/23 at 1715, For 1 dose 1659 (New Bag - Provider: Timothy Uriostegui R.N.) magnesium sulfate in water IVPB 2 g (COMPLETED) 2 g, intravenous, at 25 mL/hr, Administer over 120 Minutes, Once, On Thu10/20/23 at 1545, For 1 dose 1605 (New Bag - Provider: Karen Newman R.N.) PRN Medication Order 10/20/2023 10/21/2023 10/22/2023 acetaminophen tablet 650 mg (TYLENOL) 650 mg, oral, Every 4 hours PRN, mild pain or score 1-3 of 10, Starting on Thu10/20/23 at 1446, Check temperature prior to administration 1513 (Given - Provider: Karen Newman R.N.) ondansetron ODT disintegrating tablet 8 mg (ZOFRAN-ODT) 8 mg, oral, 3 times daily PRN, nausea, Starting on Thu10/20/23 at 1446, Use prochlorperazine before ondansetron or granisetron, before lorazepam. prochlorperazine tablet 10 mg (COMPAZINE) 10 mg, oral, Every 6 hours PRN, nausea, Starting on Thu10/20/23 at 1446, First line for nausea. Use prochlorperazine before ondansetron or granisetron, before lorazepam. documented in this encounter Additional Health Concerns Infection Onset Date Last Indicated Resolved Time COVID19 Pending 10/20/2023 10/20/2023 10/20/2023 9 :05 PM CDT Assessment Noted Time PHQ-9 Depression Total Score: 0 11/27/19 19 2:54 PM CDT documented as of this encounter Care Teams Aquatics Instructor Relationship Specialty Start Date End Date Elsewhere, Pcp PCP - General Family Medicine 03/01/20 documented as of this encounter
--- OUTSIDE RECORDS SUMMARY | 2023-10-24 05:24 | XMS_ITS | Encounter Summary ---
Author Organization [facility] Address [address] [place] [address] Care Team Providers Care Ui Ux Developer Name Role Phone Elsewhere, Pcp Primary Care Provider Unavailabl e Encounter Details Date Type Department Care Team (Late st Contact Info) Description 10/22/2023 Orders Only [facility], [facility], Ninth Floor [address] [place] [address] Magali Rutherford APRN, C.N.P., D.N.P. [address] [place] [phone] Social History Tobacco Use Types Packs/Day Years Used Date Smoking Tobacco: Never Smokeless Tobacco: Never Alcohol Use Standard Drinks/Week Comments Yes 1 (1 standard drink = 0.6 oz pur e alcohol) [facility] Utilities Answer Date Recorded In the past 12 months has [facility] [employer], gas, oil, or water [employer] threatened to shut off services in your [...] often do you attend chur ch or mosque services? More than 4 times per year 06/21/2022 Do you belong to any clubs o r organizations such as voodoo groups, unions, fraternal or athletic groups, or [...] Answer Date Recorded PHQ-2 Score 0 04/12/2023 [facility] of Occupat ionar Health - Occupational Stress Questionnaire Answer Date [...] your living situation today? I have a [facility] place to live 10/20/2023 Education Answer Date Recorded What is the highest level of school you have completed or the highest degree you have received? 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 [address] [place] [address] documented as of this encounter Visit Diagnoses Not on filedocumented in this encounter Additional Health Concerns Assessment Noted Time PHQ-9 Depression Total Score: 0 11/27/19 19 2:54 PM CDT documented as of this encounter Care Teams Ui Ux Developer Relationship Specialty Start Date End Date Elsewhere, Pcp PCP - General Family Medicine 03/01/20 documented as of this encounter
--- OUTSIDE RECORDS SUMMARY | 2023-10-24 05:24 | XMS_ITS ---
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 Past Plans Conditional Blood Orders RBC Plan Name Start Date Discontinue Date Treatment Medications Discontinue Reason Plan Provider *CONDITIONAL BLOOD ADMINISTRATION - PLATELETS - FOR PATIENTS WEIGHING GREATER THAN 35 KG - (UNITS)?HEM ONC / BMT ONL... 9 08/15/2019 No medications scheduled. Therapy Complete Maria Antonia Lentz APRN, C.N.P., D.N.P. Flushes/Hydration Plan Name Start Date Discontinue Date Treatment Medications Discontinue Reason Plan Provider VASCULAR ACCESS PATENCY - CENTRAL VENOUS CATHETER (CVC) TUNNELED NON-VALVED 03/02/2019 01/17/2020 No medications scheduled. Change in Level of Care Sharan Champion M.B., B.Ch. VASCULAR ACCESS PATENCY - PERIPHERAL INSERTED CENTRAL CATHETER (PICC) VALVED CATHETER 01/18/2019 02/22/2019 No medications scheduled. Therapy Complete - VASCULAR ACCESS PATENCY - CENTRAL VENOUS CATHETER (CVC) NON-TUNNELED NON-VALVED 11/26/2018 01/18/2019 No medications scheduled. Amendment Change - Hematology / Oncology Treatment 1 Plan Name Start Date Discontinue Date Treatment Medications Discontinue Reason Plan Provider Cycles Fludarabine / Busulfan (0.8 mg/kg IV q6h x 16 doses) Myeloablative Conditioning (Inpatient Only) 9 01/17/2020 busulfan (BUSULFEX) IVPB in 150 mL (BUSULFEX)flud arabine (FLUDARA) IVPB (FLUDARA) Therapy Complete Maria Antonia Lentz APRN, C.N.P., D.N.P. 1 of 1 cycle started Hematology / Oncology Treatment 2 Plan Name Start Date Discontinue Date Treatment Medications Discontinue Reason Plan Provider Cycles GVHD Prophylaxis: Tacrolimus / Methotrexate (Inpatient Only) 9 01/17/2020 methotrexate (PF) Therapy Complete Maria Antonia Lentz APRN, C.N.P., D.N.P. 1 of 1 cycle started Infusion Therapy 1 Plan Name Start Date Discontinue Date Treatment Medications Discontinue Reason Plan Provider cefTRIAXone (ROCEPHIN) 1 time a day 3 05/05/2023 No medications scheduled. Therapy Complete Gena Jean M.D. tixagevimab-cilgavi mab (EVUSHELD) - Emergency Use Authorization 2 05/16/2022 No medications scheduled. Therapy Complete Sharan Champion M.B., B.Ch. tixagevimab-cilgavi mab (EVUSHELD) - Emergency Use Authorization 09/18/2021 09/30/2021 No medications scheduled. Therapy Complete Sharan Champion M.B., B.Ch. MEDICATION AT INFUSION CENTER ADULT 1 TIME A DAY 04/05/2019 04/08/2019 No medications scheduled. Therapy Complete Amaya Reina APRN, C.N.P., D.N.P. electrolyte administration 04/01/2019 04/01/2019 No medications scheduled. Therapy Complete Mino Martinez P.A.-C. ALLOGENEIC BLOOD AND MARROW TRANSPLANT 03/03/2019 04/01/2019 No medications scheduled. Therapy Complete Maria Antonia Lentz APRN, C.N.P., D.N.P. Infusion Therapy 2 Plan Name Start Date Discontinue Date Treatment Medications Discontinue Reason Plan Provider pentamidine (NEBUPENT) Inhaled 03/28/2019 01/17/2020 No medications scheduled. Change in Level of Care Amaya Reina APRN, C.N.P., D.N.P. Infusion Therapy 3 Plan Name Start Date Discontinue Date Treatment Medications Discontinue Reason Plan Provider electrolyte administration 04/08/2019 04/15/2019 No medications scheduled. Therapy Complete Amaya Matute APRN, D.N.P. Radiation Treatments * No radiation treatments are documented for this patient in [facility]. Treatments may have been administered in another system. Lifetime Dose Tracking * Chemical Lifetime Dose Automatic Entry Manual Entr y Radiation 3.3 mGy 3.3 mGy 0 mGy Fluoro Time 1 minutes 1 minutes 0 minutes Resolved Problems Problem Noted Date Diagnosed Date Resolved Date Hypotension 10/22/2023 10/22/2023 Fever Of Unknown Origin 10/20/202309/30 Infection Cytomegalovirus 03/29/2019 Hypomagnesemia 03/28/2019 09/04/2020 Fever Neutropenic 03/24/2019 03/24/2019 Mucositis Ulcerative Due To Chemotherapy 03/13/2019 03/24/2019
--- OUTSIDE RECORDS SUMMARY | 2023-10-24 05:24 | XMS_ITS | Encounter Summary ---
Author Organization [facility] Address [address] [place] [address] Care Team Providers Care Campaign Advisor Name Role Phone Elsewhere, Pcp Primary Care Provider Unavailabl e Encounter Details Date Type Department Care Team (Late st Contact Info) Description 10/20/2023 Orders Only Sharan garnett [facility] in [place], [place] [address] [place] [phone] Amaya Reina APRN, C.N.P., D.N.P. [address] [place] [address] Social History Tobacco Use Types Packs/Day Years Used Date Smoking Tobacco: Never Smokeless Tobacco: Never Alcohol Use Standard Drinks/Week Comments Yes 1 (1 standard drink = 0.6 oz pur e alcohol) [facility] Utilities Answer Date Recorded In the past 12 months has [facility] [employer], gas, oil, or water [employer] threatened to shut off services in your [...] often do you attend chur ch or druze services? More than 4 times per year 06/21/2022 Do you belong to any clubs o r organizations such as jain groups, unions, fraternal or athletic groups, or [...] Answer Date Recorded PHQ-2 Score 0 04/12/2023 [facility] - Occupational [...] your living situation today? I have a [facility] place to live 10/20/2023 Education Answer Date Recorded What is the highest level of school you have completed or the highest degree you have received? 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 - 10/20/2023 10:49 AM CDT Received call from Roslyn Shelby from [facility] as Mr. Martinez has presented due to fever and lethargy. Upon arrival, he was found to be hypotensive in the 90/60's. CBC was obtained which showed a WBC: 41, Hgb: 16.1, and platelets: 258. CMP was pending. After discussion with Roslyn, decision was made that he would be better served at [facility] on the BMT service. Prior to him leaving the clinic, they will obtain blood cultures x2, Influenza/RSV/COVIDpanel; Given 2 grams Rocephin (what they had available), Zofran and IVF. Plan will be for ground transport one a bed becomes available. BMT IP team aware. documented in this encounter Plan of Treatment Upcoming Encounters Date Type Department Care Team (Late st Contact Info) Description 10/30/2023 2:00 PM CDT Telemedicine Sharan garnett [facility] in [place], [place] [address] [place] [address] Magali Rutherford APRN, C.N.P., D.N.P. [address] [place] [address] documented as of this encounter Visit Diagnoses Not on filedocumented in this encounter Additional Health Concerns Infection Onset Date Last Indicated Resolved Time COVID19 Pending 10/20/2023 10/20/2023 10/20/2023 9 :05 PM CDT Assessment Noted Time PHQ-9 Depression Total Score: 0 11/27/19 19 2:54 PM CDT documented as of this encounter Care Teams Campaign Advisor Relationship Specialty Start Date End Date Elsewhere, Pcp PCP - General Family Medicine 03/01/20 documented as of this encounter
--- OUTSIDE RECORDS SUMMARY | 2023-10-24 05:24 | XMS_ITS | Referral Summary ---
Author Organization [facility] Address [address] [place] [address] Care Team Providers Care Marketing Intern Name Role Phone Elsewhere, Pcp Primary Care Provider Unavailabl e Source Comments Patient records contain information from all sites at [facility]. For routine questions regarding patient records, call [phone] during business hours, M-F 8:00 AM - 5:00 PM Central Time. Record requests for emergency care only can be directed to [phone] at any time.[facility] Encounters Date Type Department Care Team Description 10/22/2023 Orders Only [facility], Ninth Floor [address] [place] [address] Magali Rutherford APRN, C.N.P., D.N.P. 10/22/2023 Clinical Communication [facility], Ninth Floor [address] [place] [address] Magali Rutherford APRN, C.N.P., D.N.P. Post Hospital Follow-up 10/22/2023 Clinical Communication Sharan Alfonso [facility] Clinical Regeneration in [place], [place] [address] [place] [address] Melida hTorne R.N., BMT-CN Lab Monitoring 10/20/2023 2:42 PM CDT - 10/22/2023 3:45 PM CDT Hospital Encounter [facility], Ninth Floor [address] [place] [phone] Amaya Reina APRN, C.N.P., D.N.P. Nahid Francisco M.D. Dmitry Pierce M.D., Ph.D. Dysphagia [R13.10] (Primary Dx) Discharge Disposition: Home or Self Care 10/20/2023 [facility] [place], [place] [address] [place] [phone] External, Ordering Provider, MMigule 10/20/2023 [facility] [place], [place] [address] [place] [phone] External, Ordering Provider, MMiguel 10/20/2023 Intake [facility] 10/20/2023 Orders [facility] [place], [place] [address] [place] [phone] Amaya Reina APRN, C.N.P., D.N.P. 10/20/2023 Clinical Communication [facility] Transplantation [facility] Clinical Regeneration in [place], [place] [address] [place] [phone] Sharan Champion M.B., B.Ch. Phone Contact 10/14/2023 Refill [facility] Trans[facility] Clinical Regeneration in [place], [place] [address] [place] [phone] Sharan Champion M.B., B.Ch. Med Refill 08/20/2023 Refill [facility] Trans[facility] Clinical Regeneration in [place], [place] [address] [place] [phone] Amaya Reina APRN C.N.P., D.N.P. 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 10 day course for presumed HSV lesions. 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 Resolved Problems Problem Noted Date Diagnosed Date Resolved Date Hypotension 10/22/2023 10/22/2023 Fever Of Unknown Origin 10/20/202309/30 Infection Cytomegalovirus 03/29/2019 Hypomagnesemia 03/28/2019 09/04/2020 Fever Neutropenic 03/24/2019 03/24/2019 Mucositis Ulcerative Due To Chemotherapy 03/13/2019 03/24/2019 Immunizations Name Administration Dates Next Due DTaP-IPV/Hib [...] - MODE RNA (12 YEARS AND OLDER) [id number] 04/16/2023 SARS-COV-2 (COVID-19) - PFIZ ER (Discontinued)(12 years or older) 01/17/2021,09/11/2020,08/17/2020 SARS-COV-2 (COVID-19) - PFIZ ER BIVALENT TS(Discontinued)(12 YEARS OR OLDER) 02/28/2022 SARS-COV-2 (COVID-19) - PFIZ ER TS(Discontinued)(12 years or older) 09/13/2021 Tdap 04/15/2016,01/02/2006 TyVi (inj) 01/14/2008 influenza high dose (65 year s or older) (PF) 04/12/2019 influenza vaccine quad (FLUZONE/FLUARIX) (6 months and older)(PF) 02/28/2022,03/13/2021,03/01/2020,2015 Social History Tobacco Use Types Packs/Day Years Used Date Smoking Tobacco: Never Smokeless Tobacco: Never Tobacco Cessation:Counseling Given: Not Answered Alcohol Use Standard Drinks/Week Comments Yes 1 (1 standard drink = 0.6 oz pur e alcohol) [facility] [employer] Answer Date Recorded In the past 12 months has e [employer] gas, oil, or water Vouchr threatened to shut off services in your [...] often do you attend chur ch or yarsanism services? More than 4 times per year 06/21/2022 Do you belong to any clubs o r organizations such as rastafari groups, unions, fraternal or athletic groups, or [...] Answer Date Recorded PHQ-2 Score 0 04/12/2023 [facility] [place] of Occupat ional Health - Occupational Stress [...] your living situation today? I have a [facility] place to live 10/20/2023 Education Answer Date Recorded What is the highest level of school you have completed or the highest degree you have received? 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 [address] [place] [address] Medical Devices Implanted Type Area Fudge Candy Maker Device Identifier Shelf Expiration Date Model / Serial / Lot Lens Tcn Mnfcl Dcb00 +14.0d - [id number] - [id number] Implanted:Qty : 1 on 07/29/2021 by Robi Bailon M.D. at [facility] Ocular Lens Left: Eye [employer] (Previously ROSA MARIA) 05/05/2024 [id number] / [id number] / Lens Tcn Mnfcl Dcb00 +14.0d - [id number] - [id number] Implanted:Qty : 1 on 08/19/2021 by Robi Bailon M.D. at [facility] Ocular Lens Right: Eye [employer] (Previously ROSA MARIA) 05/05/2024 [id number] / [id number] / Explanted Type Area Fudge Candy Maker Device Identifier Shelf Expiration Date Model / [...] Routine 10/21/2023 1:17 PM CDT (1, 3) PVRL-E-FSTSHP (FUNGITELL), S Routine 10/21/2023 1:17 PM CDT BILIRUBIN DIRECT, S/P Routine 10/21/2023 3:09 AM CDT COMPREHENSIVE METABOLIC PANEL, S/P Routine 10/21/2023 3:09 AM CDT CBC WITH DIFFERENTIAL, B Routine 10/21/2023 3:09 AM CDT IMMUNOGLOBULIN G (IGG), S Routine 10/21/2023 3:06 AM CDT RESPIRATORY PANEL, PCR, CAUSTIC ROOM OPERATOR Routine 10/20/2023 6:38 PM CDT VRE PCR [...] In Relapse (HCC) Transplant Stem Cell (HCC) [facility] TISSUE DONOR SCREEN TEST SET Routine 01/18/2019 9:47 AM CDT Acute Myeloblastic Leukemia In Relapse (HCC) Transplant Stem Cell (HCC) from Last 3 Months or Most Recently Relevant to Health Maintenance Results * Histoplasma and Blastomyces Antigen, Enzyme Immunoassay, Serum (10/22/2023 3:17 AM CDT) Histoplasma/Blasto myces Ag Result Not Detected Not Detected 10/22/2023 11:30 AM CDT [facility] Comment: No antigen from Histoplasma or Blastomyces detected. ??False negative results may occur depending on extent of disease, and/or site of infection. ??Repeat testing on a new specimen if clinically indicated. ?? Histoplasma/Blasto myces Ag Value Not Detected ng/mL 10/22/2023 11:30 AM CDT [facility] Comment: ----ADDITIONAL INFORMATION---- This test was developed and its performance characteristics determined by [facility] in a manner consistent with CLIA requirements. This test has not been cleared or approved by the U.S. Food and Drug Administration. Blood (Blood, Venous) 10/22/2023 3:17 AM CDT 10/22/2023 7:56 AM CDT Magali Rutherford APRN, C.N.P., D.N .P. LAB MICROBIOLOGY - BLOOD ORDERABLES [facility] [address] [place] [address] [facility] [address] [place] [address] [place] [address] * (ABNORMAL) CBC no call back, reflex T/S HGB <8 (10/22/2023 3:17 AM CDT) Only the most recent of2 resultswithin the time period is included. Hemoglobin 14.3 13.2 - 16.6 g/dL 10/22/2023 [...] 3:17 AM CDT 10/22/2023 3:41 AM CDT Ovi Lockwood APRN.N.Alin., D.N .P. LAB BLOOD NON ADD-ON Performing Organization Address City/[facility] Co de Phone Number [facility] [address] [place] [address], [facility] DTL [facility] [address] [place] [address] [facility] [address] [place] [address] * Aspergillus Ag (10/22/2023 3:17 AM CDT) Only the most recent of2 resultswithin the time period is included. Pathologist [facility] Aspergillus Ag, S <0.500 <0.5 index 10/22/2023 12:24 PM CDT [facility] Comment: ----ADDITIONAL INFORMATION---- This is a qualitative test and the resulted index value is not indicative of disease severity. ??Serial testing is recommended for patients at high risk for invasive aspergillosis. This assay was performed using the FDA-cleared Bio-[employer] Platelia Aspergillus Galactomannan EIA. Blood (Blood, Venous) 10/22/2023 3:17 AM CDT 10/22/2023 7:37 AM CDT Wilfredo Lockwood APRNN.P., D.N .P. LAB MICROBIOLOGY - BLOOD ORDERABLES Performing Organization Address City/[facility] Co de Phone Number [facility] [address] [place] [address] [facility] [address] [place] [address] [place] [address] * (ABNORMAL) Comprehensive Metabolic Panel (10/22/2023 3:17 AM CDT) Only the most recent of2 resultswithin the time period is included. Pathologist [facility] Potassium, S 5.1 3.6 - 5.2 mmol/L [...] .P. LAB BLOOD ADD-ON Performing Organization Address [facility] [place] [address] * Bacterial Culture, Aerobic + Susceptibility, Respiratory (10/21/2023 1:23 PM CDT) Bacterial Culture, Aerobic, Resp Upper respiratory/or al microbiota 10/23/2023 11:30 AM CDT DT Sputum (Sputum) 10/21/2023 1 :23 PM CDT 10/21/2023 6:10 PM CDT Comment:Specimen Source Site : Sputum Magali Rutherford APRN, C.N.P., D.N .P. LAB MICROBIOLOGY - GENERAL ORDERABLES Performing Organization Address [facility] [place] [address] * Streptococcus pneumoniae Antigen, Urine (10/21/2023 1:23 PM CDT) Pathologist [facility] Streptococcus pneumoniae Ag, U Negative Negative 10/22/2023 12:28 PM CDT [facility] Comment: Negative for pneumococcal pneumonia, suggesting no [...] 1:23 PM CDT 10/21/2023 5:15 PM CDT Ovi Lockwood APRN.N.P., D.N .P. LAB MICROBIOLOGY - GENERAL ORDERABLES [facility] [address] [place] [address] [facility] [address] [place] [address] [place] [address] * Legionella Antigen, Urine (10/21/2023 1:23 PM CDT) Pathologist [facility] Legionella Ag, U Negative Negative 10/22/19 2:39 PM CDT [facility] Comment: Negative for L. pneumophila serogroup 1 [...] This assay was performed using the FDA-cleared [employer] Legionella Urinary Antigen Test, a rapid immunochromatographic assay. Urine (Urine, Midstream) 10/21/2023 1:23 PM CDT 10/21/2023 5:15 PM CDT Ovi Lockwood APRN.N.PAshish, D.N .P. LAB MICROBIOLOGY - GENERAL ORDERABLES Performing Organization Address City/[facility] Co de Phone Number [facility] [address] [place] [address] [facility] [address] [place] [address] * Fungal Smear (10/21/2023 1:23 PM CDT) Fungal Smear Negative. 10/22/2023 9:23 AM CDT [facility] Sputum 10/21/2023 1:23 PM CDT 10/21/2023 6:10 PM CDT Comment:Specimen Source Site : Sputum Ovi Lockwood APRN.N.P., D.N .P. LAB MICROBIOLOGY - GENERAL ORDERABLES Performing Organization Address City/[facility] Co de Phone Number [facility] [address] [place] [address], [facility] [address] [place] [address] * Gram Stain (10/21/2023 1:23 PM CDT) Gram Stain Upper respiratory/ora l microbiota White blood cells, Many Epithelial cells, Moderate 10/21/2023 10:51 PM CDT [facility] Sputum 10/21/2023 1:23 PM CDT 10/21/2023 6:10 PM CDT Comment:Specimen Source Site : Sputum Ovi Lockwood APRN.N.P., D.N .P. LAB MICROBIOLOGY - GENERAL ORDERABLES Performing Organization Address City/[facility] Co de Phone Number [facility] [address] [place], [place] [address] [address] [place] [address] * (1, 3) Lbvc-T-Etcxrc (Fungitell), Serum (10/21/2023 1:17 PM CDT) [facility] (1, 3) Lczc-H-Chyhkc, Quantitative <31 <60 pg/mL pg/mL 10/22/2023 10:34 AM CDT [facility] (1, 3) Bvly-J-Mlhqnf, Qualitative Negative Negative 10/22/2023 10:34 AM CDT [facility] Comment: No (1, 3) Ypgm-O-Sdjula detected. ?? This assay does not detect certain fungi, including Cryptococcus species, which produce very low levels of (1, 3) Nacr-E-Urkctv (BDG) and the Mucorales (e.g., Lichthemia, Mucor and Rhizopus), which are not known to produce BDG. Additionally, the yeast phase of Blastomyces dermatitidis produces little BDG and may not be detected by this assay. ----ADDITIONAL INFORMATION---- This assay was performed using the FDA-cleared Fungitell Assay ([facility]), a kinetic REBEKA based on modification of the Limulus Amebocyte Lysate pathway. Blood (Blood, Venous) 10/21/2023 1:17 PM CDT 10/21/2023 5:15 PM CDT Magali Rutherford APRN C.N.P., D.N .P. LAB MICROBIOLOGY - BLOOD ORDERABLES [facility] [address] [place] [address] [facility] [address] [place] [address] [place] [address] * (ABNORMAL) CBC with Differential, Blood (10/21/2023 [...] 10/21/2023 3:17 AM CDT Orlando Ceja APRN, Ovi.N.P., D.N.P. LAB BLOOD ADD-ON Performing Organization Address City/[facility]/ZIP Co de Phone Number [facility] [address] [place] [address], [facility] [address] [place], [place] [phone] [place] [address] [address] [place] [address] * (ABNORMAL) Bilirubin, Direct (10/21/2023 3:09 AM CDT) Bilirubin, Direct, S 0.4(H) 0.0 - 0.3 mg/dL 10/21/2023 4:06 AM CDT DT Blood (Blood, Venous) 10/21/2023 3:09 AM CDT 10/21/2023 3:42 AM CDT Orlando Ceja APRN, Ovi.N.P., D.N.P. LAB BLOOD ADD-ON [facility] [address] [place] [address], [facility] [address] [place] [address] * Immunoglobulin G (IgG) (10/21/2023 3:06 AM CDT) Immunoglobulin G (IgG), S 1470 767 - 1590 mg/dL 10/21/2023 7:26 PM CDT [facility] Blood (Blood, Venous) 10/21/2023 3:06 AM CDT 10/21/2023 5:14 PM CDT Wilfredo Lockwood APRNN.P., D.N .P. LAB BLOOD ADD-ON [facility] [address] [place] [address] [facility] [address] [place] [address] * Respiratory Panel, PCR, Nasopharyngeal (10/20/2023 6:38 [...] using the FDA-Cleared FilmArray Respiratory Panel 2.1 (Certess). This assay is performed using the FilmArray Respiratory Panel 2.1 (Certess). For testing performed at [facility] in [place], [place], performance characteristics for samples submitted in phosphate buffered saline were determined by [facility] in a manner consistent with CLIA requirements. Swab (Nasopharynx) 10/20/2023 6:38 PM CDT 10/20/2023 7:04 PM CDT Orlando Ceja APRN, C.N.P., D.N.P. LAB MICROBIOLOGY - GENERAL ORDERABLES [facility] [address] [place], [place] [phone] [place] [address] 200 [facility] [address] [place] [address] * VRE PCR (10/20/2023 6:38 PM CDT) Specimen Source Swab, Perianal 10/21/2023 9:54 PM CDT DTL VRE PCR Negative Negative 10/21/2023 9:54 PM CDT D[facility] Comment: ----ADDITIONAL INFORMATION---- This test was developed using an analyte specific reagent. Its performance characteristics were determined by [facility] in a manner consistent with CLIA requirements. This test has not been cleared or approved by the U.S. Food and Drug Administration. Swab (Perianal) 10/20/2023 6 :38 PM CDT 10/20/2023 7:08 PM CDT Orlando Ceja APRN, C.N.P., D.N.P. LAB MICROBIOLOGY - GENERAL ORDERABLES [facility] [address] [place] [address], [facility] DTL [address] [place] [address] * CT Chest without IV Contrast (10/20/2023 [...] Ceja APRN, C.N.P., D.N.P. LAB URINE ORDERABLES [facility] [address] [place] [address], [facility] DTL [facility] [address] [place] [address] * Microscopic Automated (10/20/2023 4:29 PM CDT) Microscopy Normal 10/20/2023 5:07 PM CDT DTL RBC None Seen <3 /hpf 10/20/2023 5:07 PM CDT DTL WBC None Seen /hpf 10/20/2023 5:07 PM CDT [facility] Comment: ----REFERENCE VALUE---- <4 ??(Males) <11 (Females) Urine 10/20/2023 4:29 PM CDT 10/20/2023 4:44 PM CDT Orlando Ceja APRN, Ovi.N.P., D.N.P. LAB URINE ORDERABLES Performing Organization Address City/[facility]/ZIP Co de Phone Number [facility] [address] [place] [address] * Bacterial Culture, Aerobic + Susceptibility, Urine (10/20/2023 4:29 PM CDT) Pathologist [facility] Urine Culture No growth after 1 day of incubation. 10/22/2023 7:10 AM CDT DTL Urine (Urine, Midstream) 10/20/2023 4:29 PM CDT 10/20/2023 7:46 PM CDT Comment:Specimen Source Site : Urine Orlando Ceja APRN, C.N.P., D.N.P. LAB MICROBIOLOGY - GENERAL ORDERABLES Performing Organization Address City/[facility]/ZIP Co de Phone Number [facility] [address] [place] [address] * pH, Urine (10/20/2023 4:29 PM CDT) pH, U 5.3 4.5 - 8.0 10/20/2023 5:0 7 PM CDT DTL Urine 10/20/2023 4:29 PM CDT 10/20/2023 4:44 PM CDT Ovi Bundy APRN.N.PAshish, D.N.P. LAB URINE ORDERABLES Performing Organization Address [facility] Co de Phone Number [facility] [address] [place] [address], [facility] [address] [place] [address] * Osmolality, Urine (10/20/2023 4:29 PM CDT) Osmolality, U 518 150 - 1150 mOsm/kg 10/20/2023 5:07 PM CDT DTL Urine 10/20/2023 4:29 PM CDT 10/20/2023 4:44 PM CDT Ovi Bundy APRN.N.P., D.N.P. LAB URINE ORDERABLES Performing Organization Address [facility] Co de Phone Number [facility] [address] [place], [place] [address] [place] [address] * Urinalysis, with Microscopic: Urine, Midstream (10/20/2023 [...] CDT 10/20/2023 4:44 PM CDT Ovi Bundy APRN.N.Josselin, D.N.P. LAB URINE ORDERABLES [facility] [address] [place] [address], [facility] DTL [facility] [address] [place] [address] * DX Chest AP or PA and [...] Heart size is normal. Orlando Ceja APRN, Ovi.N.P., D.N.P. IMG DIAGNOSTIC IMAGING PROCEDURES * (ABNORMAL) [...] Reviewed by: Alexa 10/20/2023 6:46 PM CDT [facility] Blood (Blood, Venous) 10/20/2023 3:16 PM CDT 10/20/2023 3:31 PM CDT Orlando Ceja APRN, Ovi.N.P., D.N.P. LAB BLOOD ADD-ON Performing Organization Address City/[facility]/ZIP Co de Phone Number [facility] [address] [place] [address] * Lactate (10/20/2023 3:08 PM CDT) Pathologist [facility] Lactate, P 2.2 0.5 - 2.2 mmol/L 10/20/2023 4:03 PM CDT DT Blood (Blood, Venous) 10/20/2023 3:08 PM CDT 10/20/2023 3:46 PM CDT Orlando Ceja APRN, Ovi.N.PAshish, D.N.P. LAB BLOOD NON ADD-ON Performing Organization Address [facility]/ZIP Co de Phone Number [facility] [address] [place] [address] * (ABNORMAL) EXT Magnesium (10/20/2023 10:23 AM CDT) EXT Magnesium 1.5(L) 1.6 - 2.4 mg/dL SCANNED REPORT 10/20/2023 10:2 3 AM CDT Narrative SCANNED REPORT - 10/22/2023 10:05 AM CDT Source result document attached to Order Number [id number] ([id number]) dated 10/20/2023. External results verified in Extract by Kaity Fenton on 10/22/2023 at 10:02 AM. Ordering Provider External Cort[facility] BLOO D ADD-ON SCANNED REPORT * (ABNORMAL) EXT Creatinine with Estimated GFR (10/20/2023 10:23 AM CDT) EXT Estimated GFR (eGFR) 77(L) >90 mL/min SCANNED REPORT 10/20/2023 10:2 3 AM CDT Narrative SCANNED REPORT - 10/22/2023 10:05 AM CDT External results verified in Extract by Kaity Fenton on 10/22/2023 at 10:02 AM. Ordering Provider External [facility] VICKIE Mcgee ADD-ON Performing Organization Address [facility] Co de Phone Number SCANNED REPORT * (ABNORMAL) EXT Complete Metabolic Panel, Blood (10/20/2023 10:23 AM CDT) Pathologist [facility] EXT Sodium 137 136 - 145 mmol/L [...] Source result document attached to Order Number [id number] ([id number]) dated 10/20/2023. External results verified in Extract by Kaity Fenton on 10/22/2023 at 10:02 AM. Ordering Provider External Cortney Mcgee NON ADD-ON SCANNED REPORT * (ABNORMAL) EXT [...] on 10/22/2023 at 09:47 AM. Ordering Provider Brenda Mcgee NON ADD-ON SCANNED REPORT * BMD Bone [...] Bone Mineral Density (BMD) analysis performed on [employer] with serial number [id number]. COMPARISON: Serial Comparisons Left Total Hip results: [...] including images and graphs, is available in [employer]. In the absence of other causes of [...] image stored in the BMD study in [employer]), the calculated ten year probability of fracture [...] Bone Mineral Density (BMD) analysis performed on [employer] with serialnumber [id number]. COMPARISON: Serial Comparisons Left Total Hip results: [...] report, including images and graphs,is available in [employer]. In the absence of other causes of [...] Pulmonary Function Tests (03/24/2023 8:51 AM CDT) [facility] FVC 5.36 L 03/24/2023 12:14 PM CDT [facility] FEV1 3.90 L 03/24/2023 12:14 PM CDT [facility] FEV1/FVC 72.75 % 03/24/2023 12:14 PM CDT [facility] RAF98-76% 2.87 L/s 03/24/2023 12:14 PM CDT [facility] PEF PRE 9.93 L/s 03/24/2023 12:14 PM CDT [facility] PIF PRE 8.38 L/s 03/24/2023 12:14 PM CDT [facility] FEF 50 % FIF 50 PRE 36.96 % 03/24/2023 12:14 PM CDT [facility] FET PRE 14.96 sec 03/24/2023 12:14 PM CDT [facility] DLCO 22.13 ml/(min*mm Hg) 03/24/2023 12:14 PM CDT [facility] DLCOc 21.55 ml/(min*mm Hg) 03/24/2023 12:14 PM CDT [facility] HB 15.60 g(Hb)/dL 03/24/2023 12:14 PM CDT [facility] VA 6.73 L 03/24/2023 12:14 PM CDT [facility] PulseRest 74.00 1/min 03/24/2023 12:14 PM CDT [facility] X6OfvBzyq 98.00 % 03/24/2023 12:14 PM CDT [facility] PulseExer 89.00 1/min 03/24/2023 12:14 PM CDT [facility] EXER TIME 3.00 min 03/24/2023 12:14 PM CDT [facility] STEP HEIGHT PRE 9.00 Inch 12:14 PM CDT [facility] 03/24/2023 8:51 AM CDT Impressions [facility] - 03/24/2023 12:14 PM CDT Normal spirometry and diffusing capacity. Oxygenation is normal at rest and with exercise. Compared to 12/17/2021, spirometry measures have increased. Narrative Procedure Note Garfield Salinas M.B.B.S. - 03/24/2023 IMPRESSION: Normal spirometry and diffusing capacity. Oxygenation is normal at restand with exercise. Compared to 12/17/2021, spirometry measures haveincreased. Pearl Magallon APRN, C.N.P., D.N.P . PFT ORDERABLES [facility] NA * Lipid Panel (03/24/2023 8:15 AM [...] CDT 03/24/2023 8:48 AM CDT Pearl Magallon APRN C.N.P., D.N.P . LAB BLOOD ADD-ON [facility] [address] [place] [address], [facility] [address] [place] [address] * Thyroid Function Wray (03/24/2023 8:15 AM CDT) TSH, Sensitive 1.5 0.3 - 4.2 mIU/L 03/24/2023 9:16 AM CDT DTL Blood (Blood, Venous) 03/24/2023 8:15 AM CDT 03/24/2023 8:48 AM CDT Wilfredo Crockett APRNNAlfonso, Everardo.N.P . LAB BLOOD ADD-ON Performing Organization Address City/[facility] Co de Phone Number [facility] [address] [address] * PSA (Prostate-Specific Antigen) Screen (03/24/2023 8:15 AM CDT) Prostate-Specific Ag 0.71 <=4.5 ng/mL 03/24/2023 9:16 AM CDT DT Comment: ----ADDITIONAL INFORMATION---- The testing method is an electrochemiluminescence assay manufactured by [employer] and performed on the Modular or Marino system. Values obtained with different assay methods or kits may be different and cannot be used interchangeably. Test results cannot be interpreted as absolute evidence for the presence or absence of malignant disease. Blood (Blood, Venous) 03/24/2023 8:15 AM CDT 03/24/2023 8:48 AM CDT Wilfredo Crockett APRNNAlfonso, D.N.P . LAB BLOOD ADD-ON Performing Organization Address City/[facility] Co de Phone Number [facility] [address] [place] [address], [address] [address] * 25-Hydroxyvitamin D2 and D3 (03/24/2023 8:15 AM CDT) 25-Hydroxy D2 <4.0 ng/mL 03/25/2023 7:45 AM CDT [facility] 25-Hydroxy D3 45 ng/mL 03/25/2023 7:45 AM CDT [facility] 25-Hydroxy D Total 45 ng/mL 2022 7:45 AM CDT [facility] Comment: ----REFERENCE VALUE---- 25-HYDROXY D TOTAL (D2+D3) Optimum levels in the healthy population are 20-50, patients with bone disease may benefit from higher levels within this range. ----ADDITIONAL INFORMATION---- This test was developed and its performance characteristics determined by [facility] in a manner consistent with CLIA requirements. This test has not been cleared or approved by the U.S. Food and Drug Administration. Blood (Blood, Venous) 03/24/2023 8:15 AM CDT 03/24/2023 10:58 AM CDT Ovi Crockett APRN.N.Alin., Everardo.N.P . LAB BLOOD ADD-ON [facility] [address] [place] [address] [facility] [address] [place] [address] [place] [address] * Cologuard-Sent Out Lab (01/03/2022 7:10 AM CDT) [facility] Signature Result Negative Negative 01/11/2022 8:35 AM CDT [...] (Williams Panchal al, N Engl J Med 2014;370(14):6184-1952) The normal value (reference range) for this assay is negative. COLOGUARD RE-SCREENING RECOMMENDATION: Periodic colorectal cancer screening is an important part of preventive healthcare for asymptomatic individuals at average risk for colorectal cancer. ??Following a negative Cologuard result, the [place] Cancer Society and U.S. Multi-Society Task Force screening guidelines recommend a Cologuard re-screening interval of 3 years. References: [place] Cancer Society Guideline for Colorectal Cancer Screening: https://www.cancer.org/cancer/worwt-wabvxn-gjicjx/detection- diagnosis-staging/acs-recommendations.html.; Paolo DK, Keely CR, Eunice LynneK, Colorectal Cancer Screening: Recommendations for Physicians and Patients from the U.S. Multi-Society Task Force on Colorectal Cancer Screening , Am J Gastroenterology 2017; 112:4147-0805. TEST DESCRIPTION: Composite algorithmic analysis of stool [...] (Williams Panchal al, N Engl J Med 2014;370(14):5847-3258.) Cologuard may produce a false negative or false positive result (no colorectal cancer or precancerous polyp present at colonoscopy follow up). A negative Cologuard test result does not guarantee the absence of CRC or advanced adenoma (pre-cancer). The current Cologuard screening interval is every 3 years. ([place] Cancer Society and U.S. Multi-Society Task Force). Cologuard performance data in a 10,000 patient pivotal study using colonoscopy as the reference method can be accessed at the following location: www.Clicktree.DevHD/results. Additional description of the Cologuard test process, warnings and precautions can be found at www.Phraxis.com. Stool (Stool) 01/03/2022 7:1 0 AM CDT 01/04/2022 4:05 PM CDT Sharan Funk B.Ch. LAB BODY FLU IDS AND STOOLS ORDERABLES [facility] [address] [place] [address] [facility] [address] [facility], [address] [place] [address] * Biometry-Ophthalmology Image Exam (02/22/2021 9:45 AM [...] RAD IMAGI NG PROCEDURES Performing Organization Address [facility]/ZIP Co de Phone Number [facility] NA * [...] CDT 01/18/2019 1:24 PM CDT Sharan Funk B.Ch. LAB BLOOD AD D-ON [facility] [address] [place] [address] * MBC Tissue Donor Screen Test Set (01/18/2019 9:47 [...] 9:47 AM CDT 01/18/2019 10:39 AM CDT Narrative [facility] - 01/21/2019 3:32 PM CDT Specimen Information: Specimen ID: [id number] Specimen Type: Blood Specimen Collection Start Date: 01/18/2019 ??9:47 AM Specimen Received Date: 01/18/2019 10:39 AM Specimen ID: [id number] Specimen Type: Blood Specimen Collection Start Date: 01/18/2019 ??9:47 AM Specimen Received Date: 01/18/2019 10:39 AM Specimen ID: [id number] Specimen Type: Blood Specimen Collection Start Date: 01/18/2019 ??9:47 AM Specimen Received Date: 01/18/2019 10:39 AM Specimen ID: [id number] Specimen Type: Blood Specimen Collection Start Date: 01/18/2019 ??9:48 AM Specimen Received Date: 01/18/2019 10:39 AM Sharan Funk B.Ch. LAB BLOOD NO N ADD-ON [facility] [address] from Last 3 Months or Most Recently Relevant to Health Maintenance Advance Directives For more information, please contact: [phone] Documents on File Type Date Recorded Patient Industrial Design Intern Expl anation Advance Directives 12/14/2018 7:10 AM [...] First Alternate Health Care Agent Care Teams Marketing Intern Relationship Specialty Start Date End Date Elsewhere, Pcp PCP - General Family Medicine 03/01/20
--- OUTSIDE RECORDS SUMMARY | 2023-10-24 05:24 | XMS_ITS | Encounter Summary ---
Author Organization [facility] Address [address] [place] [address] Care Team Providers Care Correctional Manager Name Role Phone Elsewhere, Pcp Primary Care Provider Unavailabl e Reason for Visit * Reason Onset Date Comments Lab Monitoring 10/22/2023 Encounter Details Date Type Department Care Team (Latest Contact Info) Description 10/22/2023 Clinical Communication [facility] [place], [place] [address] [place] [address] Melida Thorne R.N., BMT-CN [address] [place] [address] Lab Monitoring Social History Tobacco Use Types Packs/Day Years Used Date Smoking Tobacco: Never Smokeless Tobacco: Never Alcohol Use Standard Drinks/Week Comments Yes 1 (1 standard drink = 0.6 oz pur e alcohol) [facility] Utilities Answer Date Recorded In the past 12 months has e [employer], gas, oil, or water [employer] threatened to shut off services in your [...] often do you attend chur ch or mormon services? More than 4 times per year 06/21/2022 Do you belong to any clubs o r organizations such as sikh groups, unions, fraternal or athletic groups, or [...] Answer Date Recorded PHQ-2 Score 0 04/12/2023 [facility] of Occupat ional Health - Occupational Stress [...] your living situation today? I have a [facility] place to live 10/20/2023 Education Answer Date Recorded What is the highest level of school you have completed or the highest degree you have received? Bachelor's degree (e.g., BA, AB, BS) 11/26/2018 Sex and Gender Information Value Date Recorded Sex Assigned at Male 02/17/2021 8:06 PM CDT Gender Identity Male 05/26/2019 9:19 AM CONSUMER INSIGHT ANALYST Sexual Orientation Straight 05/26/2019 9: 19 AM CONSUMER INSIGHT ANALYST documented as of this encounter Miscellaneous Notes * Telephone Encounter - Melida Thorne R.N., KYAW-LYNNE - 10/22/2023 10:13 AM CDT error documented in this encounter Plan of Treatment Upcoming Encounters Date Type Department Care Team (Late st Contact Info) Description 10/30/2023 2:00 PM CDT Telemedicine Sharan garnett [facility] for Trans[facility] Clinical Regeneration in [place], [place] [address] [place] [address] Magali Rutherford APRN, C.N.P., D.N.P. [address] [place] [address] documented as of this encounter Visit Diagnoses Not on filedocumented in this encounter Additional Health Concerns Assessment Noted Time PHQ-9 Depression Total Score: 0 11/27/19 19 2:54 PM CDT documented as of this encounter Care Teams Correctional Manager Relationship Specialty Start Date End Date Elsewhere, Pcp PCP - General Family Medicine 03/01/20 documented as of this encounter
--- OUTSIDE RECORDS SUMMARY | 2023-10-24 05:25 | XMS_ITS | Encounter Summary ---
Author Organization [facility] Address [address] [place] [address] Care Team Providers Care Dispensing Optician Apprentice Name Role Phone Elsewhere, Pcp Primary Care Provider Unavailabl e Encounter Details Date Type Department Care Team (Latest Contact Info) Description 04/24/2023 Intake [facility] Social History Tobacco Use Types Packs/Day Years Used Date Smoking Tobacco: Never Smokeless Tobacco: Never Alcohol Use Standard Drinks/Week Comments Yes 1 (1 standard drink = 0.6 oz pur e alcohol) [facility] Utilities Answer Date Recorded In the past [...] often do you attend chur ch or hoahaoism services? More than 4 times per year 06/21/2022 Do you belong to any clubs o r organizations such as restorationism groups, unions, fraternal or athletic groups, or [...] Answer Date Recorded PHQ-2 Score 0 04/12/2023 [facility] [place] of Occupat ional Health - Occupational Stress [...] your living situation today? I have a [facility] place to live 10/20/2023 Education Answer Date Recorded What is the highest level of school you have completed or the highest degree you have received? Bachelor's degree (e.g., BA, AB, BS) 11/26/2018 Sex and Gender Information Value Date Recorded Sex Assigned at Male 02/17/2021 8:06 PM CDT Gender Identity Male 05/26/2019 9:19 AM TRAFFIC OPERATIONS MANAGER Sexual Orientation Straight 05/26/2019 9: 19 AM TRAFFIC OPERATIONS MANAGER documented as of this encounter Plan of Treatment Upcoming Encounters Date Type Department Care Team (Late st Contact Info) Description 10/30/2023 2:00 PM CDT Telemedicine Sharan Alfonso [facility] for [facility] and Clinical Regeneration in [place], [place] [address] [place] [address] Magali Rutherford APRN, C.N.P., D.N.P. [address] [place] [address] documented as of this encounter Visit Diagnoses Not on filedocumented in this encounter Additional Health Concerns Infection Onset Date Last Indicated Resolved Time COVID19 Pending 04/24/2023 04/24/2023 04/24/2023 1 2:49 PM TRAFFIC OPERATIONS MANAGER Protective Environment 04/24/2023 04/24/202305/01 6:10 AM TRAFFIC OPERATIONS MANAGER COVID19 Pending 10/20/2023 10/20/2023 10/20/2023 9 :05 PM CDT Assessment Noted Time PHQ-9 Depression Total Score: 0 11/27/19 19 2:54 PM CDT documented as of this encounter Care Teams Dispensing Optician Apprentice Relationship Specialty Start Date End Date Elsewhere, Pcp PCP - General Family Medicine 03/01/20 documented as of this encounter
--- OUTSIDE RECORDS SUMMARY | 2023-10-24 05:25 | XMS_ITS | Encounter Summary ---
Author Organization [facility] Address [address] [place] [address] Care Team Providers Care Sales Branch Manager Name Role Phone Elsewhere, Pcp Primary Care Provider Unavailabl e Reason for Visit * Reason Comments Med Refill Encounter Details Date Type Department Care Team (Late st Contact Info) Description 08/20/2023 Refill Sharan Alfonso [facility] Clinical Regeneration in [place], [place] [address] [place] [phone] Amaya Reina, KERI, C.N.P., D.N.P. [address] [place] [phone] Med Refill Social History Tobacco Use Types Packs/Day Years Used Date Smoking Tobacco: Never Smokeless Tobacco: Never Alcohol Use Standard Drinks/Week Comments Yes 1 (1 standard drink = 0.6 oz pur e alcohol) Humiliation, Afraid, Rape, and Kick questionnair e Answer Date Recorded Within the last year, have y ou been afraid of your partner or ex-partner? No 06/21/2022 Within the last year, have y ou been humiliated or emotionally abused in other ways by your partner or ex-partner? No Within the last year, have y ou been kicked, hit, slapped, or otherwise physically hurt by your partner or ex-partner? No 06/21/2022 Within the last year, have y ou been raped or forced to have any kind of sexual activity by your partner or ex-partner? No 06/21/2022 Social Connection and Isolat ion Panel [NHANES] Answer Date Recorded In a typical week, how many times do you talk on the phone with family, friends, or neighbors? Twice a week 06/21/2022 How often do you get togethe r with friends or relatives? Once a week 06/21/2022 How often do you attend chur ch or advent services? More than 4 times per year 06/21/2022 Do you belong to any clubs o r organizations such as protestant groups, unions, fraternal or athletic groups, or [...] Answer Date Recorded PHQ-2 Score 0 04/12/2023 [facility] of Occupat ional Health - Occupational Stress [...] the money to buy more. Never true 06/21/19 23 Within the past 12 months, t he food you bought just didn't last and you didn't have money to get more. Never true 06/21/2022 PRAPARE - Transportation Answer Date Re corded In the past 12 months, has l ack of transportation kept you from medical appointments or from getting medications? No 06/02 In the past 12 months, has l ack of transportation kept you from meetings, work, or from getting things needed for daily living? No 06/21/2022 Housing Stability Vital Sign Answer Rick e Recorded In the last 12 months, was t here a time when you were not able to pay the mortgage or rent on time? No 06/21/2022 In the last 12 months, how many places have you lived? 1 06/21/2022 In the last 12 months, was t here a time when you did not have a steady place to sleep or slept in a intermediate (including now)? No 06/21/2022 Nutrition Answer Date Recorded On average, how many serving s of fruits and vegetables do you eat per day (serving size is equal to 1 cup or approximately the size of a tennis ball)? 2-3 06/21/2022 Dental Answer Date Recorded Dental: Regular Dentist Yes 12/01/19 Employment Answer Date Recorded Employment status Employed and actively working without restrictions 06/21/2022 Education Answer Date Recorded What is the highest level of school you have completed or the highest degree you have received? Bachelor's degree (e.g., BA, AB, BS) 11/26/2018 Sex and Gender Information Value Date Recorded Sex Assigned at Male 02/17/2021 8:06 PM CDT Gender Identity Male 05/26/2019 9:19 AM CUTTING AND SPLICING SUPERVISOR Sexual Orientation Straight 05/26/2019 9: 19 AM CUTTING AND SPLICING SUPERVISOR documented as of this encounter Plan of Treatment Upcoming Encounters Date Type Department Care Team (Late st Contact Info) Description 10/30/2023 2:00 PM CDT Telemedicine Sharan Handy [place] [facility] in [place], [place] [address] [place] [address] Magali Rutherford APRN, C.N.P., D.N.P. [address] [place] [address] documented as of this encounter Visit Diagnoses Not on filedocumented in this encounter Additional Health Concerns Assessment Noted Time PHQ-9 Depression Total Score: 0 11/27/19 19 2:54 PM CDT documented as of this encounter Care Teams Sales Branch Manager Relationship Specialty Start Date End Date Elsewhere, Pcp PCP - General Family Medicine 03/01/20 documented as of this encounter
--- OUTSIDE RECORDS SUMMARY | 2023-10-24 05:25 | XMS_ITS | Encounter Summary ---
Author Organization [facility] Address [address] [place] [address] Care Team Providers Care Demand Planning Analyst Name Role Phone Elsewhere, Pcp Primary Care Provider Unavailabl e Reason for Visit * Reason Comments Med Refill Encounter Details Date Type Department Care Team (Late st Contact Info) Description 10/14/2023 [facility] in [place], [place] [address] [place] [address] Sharan Champion M.B., B.Ch. [address] [place] [phone] Med Refill Social History Tobacco Use Types [...] often do you attend chur ch or temple services? More than 4 times per year 06/21/2022 Do you belong to any clubs o r organizations such as baptism groups, unions, fraternal or athletic groups, or [...] Answer Date Recorded PHQ-2 Score 0 04/12/2023 [facility] of Occupat ional Health - [...] place to sleep or slept in a nursing home (including now)? No 06/21/2022 Nutrition Answer Date [...] CDT Gender Identity Male 05/26/2019 9:19 AM GROCERY PACKER Sexual Orientation Straight 05/26/2019 9: 19 AM GROCERY PACKER documented as of this encounter Plan of Treatment Upcoming Encounters Date Type Department Care Team (Late st Contact Info) Description 10/30/2023 2:00 PM CDT Telemedicine Sharan Handy [place] [facility] in [place], [place] [address] [place] [phone] Magali Rutherford APRN, C.N.P., D.N.P. [address] [place] [phone] documented as of this encounter Visit Diagnoses Not on filedocumented in this encounter Additional Health Concerns Assessment Noted Time PHQ-9 Depression Total Score: 0 11/27/19 19 2:54 PM CDT documented as of this encounter Care Teams Demand Planning Analyst Relationship Specialty Start Date End Date Elsewhere, Pcp PCP - General Family Medicine 03/01/20 documented as of this encounter
== END 2023-10-20 13:34 | disposition home or self-care (01) ==
LOC: AMB 10-24 05:20
PROVIDERS: PCP Family Medicine; Visit Provider Student in an Organized Health Care Education/Training Program
DX: R55 Syncope and collapse (principal); R42 Dizziness and giddiness
CPT/HCPCS: A0425; A0427

== ENCOUNTER 2025-04-26 08:10 | Outpatient (CLI) | payer OTHER, SELFPAY | END 2025-04-26 08:11 | disposition home or self-care (01) | LOC: NFLDREF 05-02 09:05 | PROVIDERS: PCP Family Medicine; Referring Provider Family Medicine; Visit Provider Family Medicine | DX: E78.5 Hyperlipidemia, unspecified (principal) | CPT/HCPCS: 80053; 80061 ==